=== PATIENT | male | born 1945 | race Caucasian/White ===

== ENCOUNTER 2018-10-07 20:33 | Inpatient (IN) | payer MEDICARE ==
[~2018-10-07] VITALS: Ht 175.3 cm; Wt 100.3 kg
--- NOTE | 2018-10-07 20:42 | NUR ---
PT TO ER VIA EMS STATES THAT THE PT HAS NOT BEEN ACTING NORMAL SINCE 1400. PT HAS SLURRED SPEECH- WHICH IS NEW STATED BY THE . PT IS AOX4 WHEN WOKEN, PT IS VERY DROWSY. PT DENIES ANY C/P, SOB N/V.
[2018-10-07 21:01] LABS: GFR 60 ML/MIN (>=60 (CALC)); GFR FOR AFR.AMER. > 60 ML/MIN (>=60 (CALC))
--- NOTE | 2018-10-07 21:12 | NUR ---
STROKE ALERT CANCELLED BY [facility] STROKE TEAM
[2018-10-07 21:17] LABS: HEMATOCRIT 37.9 % (39.0-50.0); HEMOGLOBIN 12.9 g/dl (14.0-18.0); IMMATURE GRANULOCYTES 0.3 % (0.0-5.0); MEAN CELL VOLUME 95.2 fL CALC (80.0-100.0); MEAN CORPUSCULAR HGB 32.4 pG CALC (26.0-32.0); NEUT# 5.43 thou/uL (1.82-7.42); RED BLOOD COUNT 3.98 mill/uL (4.70-6.10); RED CELL DISTRI WIDTH 13.2 % (11.5-15.5)
[2018-10-07 21:21] LABS: ALBUMIN 4.6 g/dL (3.2-5.0); ALKALINE PHOSPHATASE 63 u/l (38-126); ANION GAP 18 (6-22 (CALC)); BILIRUBIN, TOTAL 0.7 mg/dL (0.0-1.4); BUN 16 mg/dL (8-23); BUN/CREATININE RATIO 14 (12-20 (CALC)); CARBON DIOXIDE 21 mmol/l (22-30); CHLORIDE 101 mmol/l (95-108); CREATININE 1.1 mg/dL (0.7-1.3); GFR > 60 ML/MIN (>=60 (CALC)); GFR FOR AFR.AMER. > 60 ML/MIN (>=60 (CALC)); INTERNATIONAL NORMALIZED RATIO 1.1 RATIO (0.7-1.3); POTASSIUM 4.3 mmol/l (3.5-5.1); PROTHROMBIN TIME 11.6 SECONDS (9.0-12.5); SGOT/AST 40 u/l (19-48); SODIUM 135 mmol/l (137-146)
[2018-10-07 21:33] LABS: MYOGLOBIN 129 ng/mL (0 - 121)
--- NOTE | 2018-10-07 21:42 | NUR ---
PT RESTING ON STRETCHER, NO CHANGES IN MENTATION
--- NOTE | 2018-10-07 22:12 | NUR ---
REPORT GIVEN TO LYUBOV LORA
--- NOTE | 2018-10-07 22:24 | NUR ---
DR NOTIFIED OF ELEVATED LACTIC ACID.
--- NOTE | 2018-10-07 23:16 | NUR ---
REGISTRATION AT BEDSIDE
[2018-10-08] VITALS (34 sets, daily range): BP systolic 97–199; BP diastolic 52–82
[2018-10-08] LABS: URINE BILIRUBIN - DIPSTICK NEGATIVE (NEGATIVE); URINE BLOOD DIPSTICK TRACE-INTACT (NEGATIVE); URINE COLOR YELLOW; URINE GLUCOSE - DIPSTICK NEGATIVE (NEGATIVE); URINE KETONE NEGATIVE (NEGATIVE); URINE LEUK ESTERASE NEGATIVE (NEGATIVE); URINE NITRITE - DIPSTICK NEGATIVE (Negative); URINE PH 5.5 (4.5-8.0); URINE PROTEIN - DIPSTICK NEGATIVE (NEG-TRACE); URINE UROBILINOGEN - DIPSTICK 0.2 E.U./dL (0.2)
--- NOTE | 2018-10-08 01:12 | NUR ---
NOR EPI STARTED AT 0.5MCG/KG/MIN.
--- NOTE | 2018-10-08 01:15 | NUR ---
NOREPI INCREASED TO 0.6 MCG/[place]/MIN 74/44
--- NOTE | 2018-10-08 01:20 | NUR ---
80/47 77 17. NOR-EPI INCREASED TO 0.7 MCG/KG/MIN
--- NOTE | 2018-10-08 01:25 | NUR ---
GRANT-EPI INCREASED TO 1.0 MCG/KG/MIN.
--- NOTE | 2018-10-08 01:47 | NUR ---
95/52 74 16 95% ON NC @ 2 LPM.
--- NOTE | 2018-10-08 01:47 | NUR ---
REPORT TO GENO HARE./ICU
--- NOTE | 2018-10-08 02:01 | NUR ---
EKG COMPLETED AFTER REPEAT TROP DONE.
--- NOTE | 2018-10-08 02:10 | NUR ---
TO FLOOR WITH MONITOR/O2
[2018-10-08] MEDS ORDERED: LIPITOR10 M1 PO (02:40)
[2018-10-08] MEDS ORDERED: CO Q-10200 M1 PO (02:45)
[2018-10-08] MEDS ORDERED: METFORMIN HCL500 M2 PO (02:45)
--- NOTE | 2018-10-08 02:45 | NUR ---
[id number] PT. ARRIVED TO THE FLOOR VIA STRETCHER ACCOMPANIED BY ER NURSE, GENO MCARTHUR; PT. A/A/OX3 AND ABLE TO TRANSFER HIMSELF OVER TO STRETCHER WITH MINIMAL ASSISTANCE; PT. IS NOTED TO BE WITH SLIGHT GENERALIZED WEAKNESS; NEURO CHECK COMPLETED AND WNL;ADMISSION ASSESSMENT COMPLETED; PT. BROUGHT WITH PILAR-SYNEPHRINE GTT INFUSING; B/P 111/57 WITH HR 82 ; GTT SET 0.5MCG/KG/MIN (@74.2MLS/HR);RACHELE ROQUE RN, ALSO IN AT BEDSIDE AND VERIFYING GTT RATE; B/P MAINTAINING; SEE VS INTERVENTION; GOAL SBP IS 110; WILL CONTINUE TO MONITOR;NS INFUSING @125MLS/HR PER ORDER WELL; PT. DENIES PAIN; EDUCATED INTERNETWORKING TECHNICIAN LIGHT, ROOM, AND POC; VERBALIZES UNDERSTANDING; O2 INFUSING PER NC @2LITERS/MIN; INSTRUCTED TO CALL FOR ANY NEEDS; CALL LIGHT IS IN REACH; WILL CONTINUE TO MONITOR.
--- NOTE | 2018-10-08 04:59 | NUR ---
PT. RESTING IN BED WITH EYES CLOSED; SNORING; NO DISTRESS NOTED; PILAR-SYNEPHRINE GTT REMAINS INFUSING @74.2MLS/HR; LAST B/P 118/65 AND HR 76; WILL CONTINUE TO MONITOR; RESP EVEN AND UNLABORED.
--- NOTE | 2018-10-08 06:50 | NUR ---
REPORT RECVD FROM GENO HARE AT START OF SHIFT.
--- NOTE | 2018-10-08 07:14 | NUR ---
PTS CALLED FOR UPDATE. WILL ASK PT TO CALL HOME AFTER HE WAKES UP.
--- NOTE | 2018-10-08 08:00 | NUR ---
PT REQUEST WE HOLD HIS BREAKFAST. STATES HE DIDNT GET A LOT OF SLEEP LAST NIGHT. ASKED HOUSEKEEPING TO CLEAN HIS ROOM LAST TO REDUCE NOISE.
--- NOTE | 2018-10-08 09:30 | NUR ---
PT ASSISTED UP TO BSC FOR BM.
--- NOTE | 2018-10-08 10:25 | NUR ---
@BEDSIDE WITH PT.
--- NOTE | 2018-10-08 13:00 | NUR ---
PT REFUSED BATH, STATING "THEIR GETTING ME OUT OF HERE".
--- NOTE | 2018-10-08 13:05 | NUR ---
S: ADAMARIS GARCIA is a 73 M who presents with pneumonia and sepsis. He has a history of Diabetes, elevated cholesterol. All medications in patient's chart were reviewed. O: VS: BP 127/64 mm/Hg, P84 beats/min, RR16 beats/min,T97.4 F W 219 lbs, HT 69inches, Scr=1.2 mg/dL, CrCl= 65ml/min A: Blood culture collected 10/07/18 is pending. P: Patient is on Vancomycin 1gm IV q12H Start Vancomycin 1gm IV Q12H. Vancomycin trough is drawn before the 4th dose on 10/09/18 at 1630. Vancomycin goal trough is between 15-20 mcg/ml. Pharmacy will follow and or advise on antibiotics use as needed.
--- NOTE | 2018-10-08 13:35 | NUR ---
NOTIFIED RE: TROPONIN 0.[address] JOVEL CONTINUE TO OSBERVE AND MONITOR.
--- NOTE | 2018-10-08 13:39 | NUR ---
REPORT GIVEN TO GEOFF JONES.
--- NOTE | 2018-10-08 14:08 | NUR ---
PT IS RELAXING IN BED WITH NO DISTRESS NOTED. CONTINUE TO OSBERVE AND MONITOR.
--- NOTE | 2018-10-08 15:39 | NUR ---
PT IS RELAXING AND VISITING WITH FAMILY,NO DISTRESS NOTED. IV SITE IS FREE FROM REDNESS OR EDEMA
--- NOTE | 2018-10-08 16:00 | NUR ---
TRANSPORTED PT TO HAVE CT SCAN COMPLETED ON THE STRETCHER ACCOMAPNIED BY STAFF. IV SITE IS FREE FROM REDNESS OR EDEMA. PT IS SWEATING. CONTINUE TO OBSERVE AND MONITOR.
--- NOTE | 2018-10-08 16:45 | NUR ---
PT RETURNED FROM CT SCAN. ABLE TO TRANSFER TO BED WITH ASSISTANCE. PT STARTED TO VOMIT FROM THE MOVING AROUND ON THE STRETCHER . SMALL AMOUNT OF GREEN BILE. CONTINUE TO OSEBRVE AND MONITOR.
--- NOTE | 2018-10-08 18:00 | NUR ---
IN TO SEE PT. NEW ORDERS WRITTEN. MEDICATION GIVEN FOR FEVER OF 103.9 PER 'S ORDER
--- NOTE | 2018-10-08 18:37 | NUR ---
WRITTEN ORDERS FROM DR AVINA FAXED TO & ENTERED.
--- NOTE | 2018-10-08 19:02 | NUR ---
SPOKE WITH AND RE: TROPONIN OF 1.550. ORDERS IN PLACE FROM WILL RECHECK TOMORROW ALSO WITH ECHO AND THEN IF NOT ANY BETTER WILL TRANSFER PT. CONTINUE TO OSBERVE AND MONITOR. INFORMATION SHARED WITH ONCOMING SHIFT.
--- NOTE | 2018-10-08 19:23 | NUR ---
REPORT FROM ROBERT TELLEZ. PT RESTING IN BED ALERT AND ORIENTED. PT DENIES ANY PAIN OR DISCOMFORT. RESPIRATIONS LABORED. ASSISTED REPOSITIONING PT IN BED TO ASSIST WITH BREATHING. IV SITES APPEAR HEALTHY. VS STABLE. TEMP 102.6 TRENDING DOWN. DISCUSSED POC. PT VERBALIZED UNDERSTANDING. CALL LIGHT WITHIN REACH. WILL CONTINUE TO MONITOR.
--- NOTE | 2018-10-08 21:07 | NUR ---
PT RESTING IN BED WITH EYES CLOSED. RESPIRATIONS EVEN AND UNLABORED. O2 AT 2L/M VIA NC. IVF INFUSING WITHOUT DIFFICULTY. PT WAKES EASILY. DENIES ANY PAIN OR DISCOMFORT. CALL LIGHT WITHIN REACH. WILL CONTINUE TO MONITOR.
--- NOTE | 2018-10-08 22:17 | NUR ---
O2 SATS IN 80'S PT RESTING IN BED MOUTH BREATHING. RT IN ROOM TO PLACE VENTURI MASK. MASK SETTING AT 40% PT SAT 92% AT THIS TIME. WILL CONTINUE TO MONITOR.
--- NOTE | 2018-10-08 22:59 | NUR ---
PT INCONTINENT OF BLADDER WHILE TRYING TO REACH FOR URINAL. PARTIAL BED BATH AND LINEN CHANGE PROVIDED AT THIS TIME. PT REPOSITIONED IN BED. VS STABLE. PT DENIES ANY PAIN OR DISCOMFORT. CALL LIGHT WITHIN REACH.
[2018-10-09] VITALS (13 sets, daily range): BP systolic 83–126; BP diastolic 44–70
--- NOTE | 2018-10-09 00:29 | NUR ---
PT RESTING IN BED WITH EYES CLOSED. EASILY AROUSED. ALERT AND ORIENTED. IV SITE FLUSHED WELL. IV ABT INFUSING WITHOUT DIFFICULTY. APAP GIVEN FOR ELEVATED TEMP. O2 SAT REMAINS AT 92% WITH VENTURI MASK AT 40%. PT DENIES ANY PAIN OR DISCOMFORT. CALL LIGHT WITHIN REACH. WILL CONTINUE TO MONITOR.
--- NOTE | 2018-10-09 02:45 | NUR ---
PT RESTING WITH EYES CLOSED. NO S/S OF DISTRESS NOTED. CALL LIGHT WITHIN REACH. WILL CONTINUE TO MONITOR.
--- NOTE | 2018-10-09 04:29 | NUR ---
PT UP TO BSC. LINENS CHANGED PT SPILLED URINAL IN BED. PARTIAL BED BATH PROVIDED. PT HAD BROWN WATERY BM AT THIS TIME. ASSISTED BACK TO BED. PT DENIES ANY PAIN OR DISCOMFORT AT THIS TIME. CALL LIGHT WITHIN REACH. WILL CONTINUE TO MONITOR.
[2018-10-09 05:39] LABS: HEMATOCRIT 33.5 % (39.0-50.0); HEMOGLOBIN 11.2 g/dl (14.0-18.0); IMMATURE GRANULOCYTES 0.4 % (0.0-5.0); MEAN CELL VOLUME 97.1 fL CALC (80.0-100.0); MEAN CORPUSCULAR HGB 32.5 pG CALC (26.0-32.0); MEAN CORPUSCULAR HGB CONC 33.4 g/L CALC (32.0-36.0); NEUT# 4.64 thou/uL (1.82-7.42); RED BLOOD COUNT 3.45 mill/uL (4.70-6.10); RED CELL DISTRI WIDTH 13.3 % (11.5-15.5)
[2018-10-09 05:53] LABS: ALKALINE PHOSPHATASE 49 u/l (38-126); AMYLASE < 30 u/l (30-110); ANION GAP 13 (6-22 (CALC)); BILIRUBIN, TOTAL 0.6 mg/dL (0.0-1.4); BUN 15 mg/dL (8-23); BUN/CREATININE RATIO 13 (12-20 (CALC)); CARBON DIOXIDE 20 mmol/l (22-30); CHLORIDE 105 mmol/l (95-108); CREATININE 1.1 mg/dL (0.7-1.3); GFR > 60 ML/MIN (>=60 (CALC)); GFR FOR AFR.AMER. > 60 ML/MIN (>=60 (CALC)); LIPASE 178 u/l (23-300); MAGNESIUM 1.8 mg/dL (1.6-2.3); POTASSIUM 4.3 mmol/l (3.5-5.1); SGOT/AST 68 u/l (19-48); SODIUM 134 mmol/l (137-146)
[2018-10-09 05:57] LABS: ALBUMIN 3.1 g/dL (3.2-5.0); TOTAL PROTEIN 5.7 g/dL (6.3-8.2)
--- NOTE | 2018-10-09 07:10 | NUR ---
pt resting in bed with eyes closed; no apparent distress noted; easily arousable to verbal stimuli; assessment completed at this time; pt alert and oriented; denies pain; no n/v noted; resp even and unlabored; lungs coarse throughout with rhonchi noted to bases; skin color wnl; fnp cough noted; 40% ventimask intact with o2 sat 94%; pt denies sob; hr reg; strong pulses; no edema noted; bilat james hose intact; sr on monitor; abd soft/ distended with bs present; no bm noted per typewriter mechanic; no urine to inspect at this time; urinal at bedside; #20 ems site patent to lac with abt infusing without complication; no redness or edema noted at site; plan of care/ am meds explained; call light within reach; will contnue to monitor
--- NOTE | 2018-10-09 08:05 | NUR ---
resting with eyes closed; declined breakfast at this time; sr on monitor; iv intact and patent; fluids infusing without complication; urinal at bedsde; call light within reach; will continue to monitor
--- NOTE | 2018-10-09 08:50 | NUR ---
ASSISTED PT TO BSC; PT INCONTINENT OF URINE; CHI CARE PROVIDED; LG LOOSE BROWN BM; LINEN CHANGE DONE; REFUSED BATH AND ORAL CARE; REF BREAKFAST;
--- NOTE | 2018-10-09 09:40 | NUR ---
Dr Camara present at bedside to assess pt and discuss plan of care
--- NOTE | 2018-10-09 09:57 | NUR ---
radiology Prabhu called per curriculum writer; call passed to Dr Camara as per request
--- NOTE | 2018-10-09 10:15 | NUR ---
spouse present at bedside; policy writer sales explained plan of care and meds to pt and spouse; sbp 99; nitropaste removed from right chest wall; pt bladder scanned for 192cc; pt denies urge to urinate; iv patent; no redness or edema noted at site; sr on monitor; call light within reach; will continue to monitor
--- NOTE | 2018-10-09 10:40 | NUR ---
Dr Camara present at bedside to discuss diagnosis and plan of care in great detail with spouse and pt; policy writer sales at bedside to witness
--- NOTE | 2018-10-09 10:55 | NUR ---
awake in bed; spouse present at bedside; no apparent distress noted; iv intact and patent; no redness or edema noted at site; sr on monitor; call light within reach; will continue to monitor
--- NOTE | 2018-10-09 11:30 | NUR ---
awake in bed; lunch at bedside; pt strongly encouraged to attempt to eat; will continue to monitor
--- NOTE | 2018-10-09 13:10 | NUR ---
resting in bed with eyes closed/snoring; no apparent distress noted; resp unlabored; iv intact; 40% ventimask intact; urinal at bedside; sr on monitor; spouse present at bedside; call light within reach; will continue to monitor
--- NOTE | 2018-10-09 14:14 | NUR ---
awake in bed; o2 per nc; iv intact; sr on monitor; call light within reach; will continue to monitor
--- NOTE | 2018-10-09 15:56 | NUR ---
resting in bed with eyes closed; easily aroused; offers no complaints; iv intact; no redness or edema noted at site; sr on monitor; urinal at bedside; o2 per nc; call light within reach; will continue to monitor
--- NOTE | 2018-10-09 17:00 | NUR ---
PT SITTING UP IN BED AWAKE, WATCHING TV; MEDICATED PER EMAR; AT BEDSIDE; CALL ALMARAZ IN REACH.
--- NOTE | 2018-10-09 17:59 | NUR ---
awake in bed; offers no complaints; denies pain; resp even and unlabored; pt cont with drowsiness; spouse present at bedside; abt infusing without complication; sr on monitor; call light within reach
--- NOTE | 2018-10-09 18:50 | NUR ---
REPORT FROM Nasim BROWN RN. ASSUMED PT. CARE.
--- NOTE | 2018-10-09 19:25 | NUR ---
PT. FOUND RESTING WITH EYES CLOSED. AROUSABLE TO LIGHT VERBAL STIMULI. CALL LIGHT WITHIN REACH. BOWEL SOUNDS NOTED IN ALL QUADS. RESPS EVEN, SHALLOW, MILDLYLY LABORED WITH INTERMITTENT PERIODS OF APNEA AND SNORING. SPO2 IS IN THE 94-96 RANGE ON 3L NC AT THIS TIME. LUNG SOUNDS DIMINISHED TO BASES BILAT. COARSE THROUGHOUT WITH EXP WHEEZES THROUGHOUT. TRACE SWELLING NOTED TO UPPER EXTREMITIES. DISTIL PULSES INTACT. TRACE LOWER EXT EDEMA. SKIN WARM AND DRY. DEYANIRA. DROWSY. URINAL EMPTIED OF 100 CC CLEAR YELLOW URINE. PT. REPORTS LOOSE BM TODAY. DENIES COMPLAINTS OF PAIN OR NEED AT THIS TIME.
--- NOTE | 2018-10-09 20:32 | NUR ---
PT. BP SLIGHTLY LOW AT THIS TIME 90/56. WILL CONTINUE TO ASSESS.
--- NOTE | 2018-10-09 21:47 | NUR ---
LOOKED FOR NEW SITE TO PLACE NEW IV LINE. MINIMAL OPPORTUNITY FOR SITES NOTED. WILL CONTACT PHYSICIAN FOR POSSIBLE ORDER FOR PICC LINE.
--- NOTE | 2018-10-09 22:40 | NUR ---
RT AT BEDSIDE TO ADMINISTER NEB TREATMENT. BP NOW 122 SYSTOLIC. WILL CONTINUE TO MONITOR. CALL LIGHT REMAINS WITHIN REACH. WILL CONTINUE TO MONITOR.
[2018-10-10] VITALS (12 sets, daily range): BP systolic 94–116; BP diastolic 51–61
--- NOTE | 2018-10-10 01:04 | NUR ---
ZOSYN INFUSED. NO REACTIONS NOTED. REMAINS MILDLY HYPOTENSIVE. SPO2 IS STABLE AT 96% ON 3L NC. INTERMITTENT SNORING RESPIRATIONS NOTED.
--- NOTE | 2018-10-10 02:09 | NUR ---
PT. RESTING IN BED WITH SNORING RESPIRATIONS. BP/HR STABLE. CALL LIGHT REMAINS WITHIN REACH. WILL CONTINUE TO ASSESS.
--- NOTE | 2018-10-10 03:45 | NUR ---
PT. CONTINUES TO REST WITH EYES CLOSED IN NO DISTRESS. REMAINS ON NASAL CANNULA AT 3L WITH SPO2 IN THE 96-98% RANGE.
--- NOTE | 2018-10-10 04:40 | NUR ---
LABS DRAWN BY THIS RN AT THIS TIME. PROVIDED TO [facility].
--- NOTE | 2018-10-10 04:50 | NUR ---
PT. TAKEN OVER TO MED/SURG AT THIS TIME FOR SHOWER. PT. AWAKE, ALERT, ORIENTED X 3. SKIN WARM AND DRY. STABLE AT THIS TIME.
[2018-10-10 05:17] LABS: HEMATOCRIT 31.5 % (39.0-50.0); HEMOGLOBIN 10.7 g/dl (14.0-18.0); IMMATURE GRANULOCYTES 0.6 % (0.0-5.0); MEAN CELL VOLUME 94.3 fL CALC (80.0-100.0); PLATELET COUNT 162 thou/uL (130-400); RED BLOOD COUNT 3.34 mill/uL (4.70-6.10); RED CELL DISTRI WIDTH 13.2 % (11.5-15.5)
--- NOTE | 2018-10-10 05:35 | NUR ---
PT. RETURNED FROM MED/SURG AFTER SHOWER IN STABLE CONDITION. PER MARKETING MGR, PATIENT DID WELL AND HAD NO SOB WHILE GETTING CLEANED UP. RESPS STABLE, EVEN ON ARRIVAL BACK TO UNIT. PLACED BACK ON MONITOR AND REMAINS SINUS IN THE 70'S.
[2018-10-10 05:43] LABS: ALBUMIN 2.8 g/dL (3.2-5.0); ALKALINE PHOSPHATASE 48 u/l (38-126); ANION GAP 11 (6-22 (CALC)); BILIRUBIN, TOTAL 0.4 mg/dL (0.0-1.4); BUN 13 mg/dL (8-23); BUN/CREATININE RATIO 14 (12-20 (CALC)); CARBON DIOXIDE 23 mmol/l (22-30); CHLORIDE 102 mmol/l (95-108); CREATININE 0.9 mg/dL (0.7-1.3); GFR > 60 ML/MIN (>=60 (CALC)); GFR FOR AFR.AMER. > 60 ML/MIN (>=60 (CALC)); MAGNESIUM 1.9 mg/dL (1.6-2.3); POTASSIUM 3.8 mmol/l (3.5-5.1); SGOT/AST 75 u/l (19-48); SODIUM 133 mmol/l (137-146); TOTAL PROTEIN 5.3 g/dL (6.3-8.2)
[2018-10-10 05:49] LABS: BAND 5 % (0-8); MANUAL DIFFERENTIAL YES
[2018-10-10 05:50] LABS: HYPOCHROMIA FEW; MICROCYTOSIS FEW; PLATELET ESTIMATE NORMAL
--- NOTE | 2018-10-10 06:06 | NUR ---
ZOSYN INFUSING AT THIS TIME. MEDICATED WITH TYLENOL FOR TEMP OF 101.0. WILL CONTINUE TO MONITOR.
--- NOTE | 2018-10-10 06:50 | NUR ---
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
--- NOTE | 2018-10-10 08:02 | NUR ---
resting in bed with eyes closed; no apparent distress noted; resp even and unlabored; iv intact; sr on monitor; call light within reach; will continue to monitor
--- NOTE | 2018-10-10 10:14 | NUR ---
awake in bed; spouse present at bedside; no apparent distress noted; sr on monitor; iv intact; no redness or edema noted at site; plan of care explained; call light within reach; will continue to monitor
--- NOTE | 2018-10-10 10:50 | NUR ---
Dr Camara present at bedside to assess pt and discuss plan of care
--- NOTE | 2018-10-10 12:15 | NUR ---
awake in chair; no apparent distress noted; pt offers no complaints; iv flushed and patent; abt infusing without complication; no redness or edema noted at site; sr on monitor; call light within reach; will continue to monitor
--- NOTE | 2018-10-10 13:06 | NUR ---
assisted back to bed as per pt request; bladder scanned for 383cc; pt encouraged to urinate; will continue to monitor
--- NOTE | 2018-10-10 13:08 | NUR ---
pt voided 125cc urine
--- NOTE | 2018-10-10 14:01 | NUR ---
awake in bed; offers no complaints; no apparent distress noted; resp even and unlabored; o2 per nc; iv intact; sr on monitor; call light within reach; will continue to monitor
--- NOTE | 2018-10-10 15:05 | NUR ---
#20 started to lac (not fully advanced) per Ramon Paiz RN; site flushed and patent; no redness or edema noted; #20 ems site removed with catheter tip intact; will continue to monitor
--- NOTE | 2018-10-10 16:14 | NUR ---
awake in bed; no apparent distress noted; pt offers no complaints; o2 per nc; iv intact; spouse present at bedside; sr on monitor; call light within reach; will continue to monitor
--- NOTE | 2018-10-10 18:00 | NUR ---
awake in bed; declined dinner; no apparent distress noted; pt offers no complaints; o2 per nc; iv intact with abt infusing without complication; sr on monitor; call light within reach
--- NOTE | 2018-10-10 19:03 | NUR ---
PT. SITTING UP IN BED WITH NO DISTRESS NOTED; DENIES NEEDS/PAIN; ASSESSMENT COMPLETED; IV SITE PATENT AND SL TO LAC; VSS AT THIS TIME; PT. IS SR ON MANAGER DIGITAL;UPDATED ON POC; ENCOURAGED TO CALL FOR ANY NEEDS; CALL LIGHT IS IN REACH; WILL CONTINUE TO MONITOR.
--- NOTE | 2018-10-10 20:15 | NUR ---
LORI HELD D/T LOW B/P OF 94/58; WILL CONTINUE TO MONIOR B/P. PT. CONTINUES ON PRINTING ENGINEER READING SR 1ST DEGREE AV BLK. CALL LIGHT IS IN REACH; WILL CONTINUE TO MONITOR.
--- NOTE | 2018-10-10 22:15 | NUR ---
PT. ASSISTED TO USE THE URINAL IN BATHROOM PT. IS WITH SLIGHTLY UNSTEADY GAIT AND ASSISTED TO GET COMFORTABLE IN BED; PT. VOIDED 100MLS OF DARK YELLOW URINE; PO FLUIDS OFFERED; ENCOURAGED TO CALL FOR ANY NEEDS; CALL LIGHT IS IN REACH; WILL CONTINUE TO MONITOR.
--- NOTE | 2018-10-10 23:47 | NUR ---
PT. RESTING IN BED WITH NO DISTRESS NOTED; DENIES NEEDS; RESP EVEN AND UNLABORED; CALL LIGHT IS IN REACH; WILL CONTINUE TO MONITOR.
[2018-10-11] VITALS (12 sets, daily range): BP systolic 102–149; BP diastolic 56–79
--- NOTE | 2018-10-11 02:16 | NUR ---
PT. RESTING IN BED WITH EYES CLOSED; O2 INFUSING PER NC @2LITERS/MIN; SPO2 WNL; LAST B/P 123; WILL CONTINUE TO MONITOR; URINAL EMPTIED OF 225MLS OF DARK YELLOW URINE; CALL LIGHT IS IN REACH; WILL CONTINUE TO MONITOR.
--- NOTE | 2018-10-11 03:40 | NUR ---
PT. RESTING IN BED WITH EYES CLOSED; NO DISTRESS NOTED; CALL LIGHT IS IN REACH; WILL CONTINUE TO MONITOR.
--- NOTE | 2018-10-11 04:59 | NUR ---
PT. VOIDED 150MLS OF DARK YELLOW URINE; BLADDER SCANNED AT THIS TIME AND KXC=[id number]; TEMP ASSESSED AND IS 99.8; WILL CONTINUE TO MONITOR. PT. INQUIRING WHEN HE IS GOING TO BE ABLE TO GO HOME AND REPORTS HE IS WANTING TO GO HOME; REFUSED AM LAB WORK THIS AM; PT. UPDATED ON POC AND VOICED TO PT. TO SPEAK WITH MD THIS AM UPON ROUNDS IN REGARDS TO A DISCHARGE DATE; PO FLUIDS OFFERED AND OFFERED MOUTHSWABS; CALL LIGHT IS IN REACH; WILL CONTINUE TO MONITOR.
--- NOTE | 2018-10-11 05:25 | NUR ---
PT. GIVEN AN INCENTIVE SPIROMETER AND EDUCATED ON THIS DEVICE; PT. PULLING 500 AND DID 10 REPS AT THIS TIME; GOAL SET TO 1000; ENCOURAGED TO USE 10X'S AN HOUR WHILE AWAKE; CALL LIGHT IS IN REACH; WILL CONTINUE TO MONITOR.
--- NOTE | 2018-10-11 06:11 | NUR ---
PT. UP FOR DAILY WT ON STANDING SCALE; GOWN, PAD,AND TOP SHEET CHANGED AT THIS TIME D/T IT BEING WET FROM URINE; EMPTIED 100MLS OF YELLOW URINE FROM URINAL WELL; REASSESSED TEMP AND DOWN TO 99.6; WILL CONTINUE TO MONITOR.
--- NOTE | 2018-10-11 07:04 | NUR ---
REPORT RECVD FROM GENO HARE @ START OF SHIFT. PT OVERHEARD SNORING FROM NURSING STATION
--- NOTE | 2018-10-11 07:32 | NUR ---
CALLED INTO ROOM. PT LISTED A NUMBER OF THINGS HE WANTED DONE; INCLUDING OPENING HIS BLINDS, GETTING HIM UP TO CHAIR, WANTS TO BRUSH HIS TEETH. PT ASSISTED UP TO CHAIR. BREAKFAST SET UP FOR HIM. PT REEDUCATED ON INCENTIVE SPIROMETER. PT REFUSED HIS MORNING LAB DRAW, STATING "THEY NEVER WOULD'VE FOUND ANYTHING ANYWAY". EXPLAINED DIFFERENCE BETWEEN IV PLACEMENT AND LAB DRAW. PT APPEARS GROUCHY AND UNFRIENDLY WITH STAFF. MINIMAL ASSISTANCE FROM STAFF TO TRANSFER TO CHAIR. PT REMAINS ON 2L HUMIDIFIED O2 NC. CALLBELL W/IN REACH.
--- NOTE | 2018-10-11 08:02 | NUR ---
PT SITTING UP IN CHAIR. ATE 50% OF BREAKFAST. LINENS/GOWN CHANGED. PT BRUSHING OWN TEETH. DIETARY @BEDSIDE FOR MEAL PREFERENCES. HOUSEKEEPING IN ROOM FOR CLEANING. CALLBELL W/IN REACH. NO OTHER NEEDS/CONCERNS AT THIS TIME. PT BREATHING EVEN/UNLABORED. CLEAR UPPER LOBES, CRACKLES TO MID/LOWER LOBES. ABD SOFT/NONTENDER, ACTIVE BS. NO BM SINCE 10/09/18. NO EDEMA. CORTES. STRONG PULSES x4. PT MORE AWAKE TO THAN IN THE PAST. SPEECH GROGGY/HOARSE. PT STATES HIS THROAT FEELS DRY. FRESH WATER IN PITCHER. EYES PERRLA @4. 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 WILL CONTINUE TO MONITOR.
--- NOTE | 2018-10-11 09:25 | NUR ---
@BEDSIDE. "IMPRESSED WITH PTS PROGRESS"
--- NOTE | 2018-10-11 10:15 | NUR ---
DR JOVEL @BEDSIDE WITH PT/.
--- NOTE | 2018-10-11 10:58 | NUR ---
TYLENOL PENDING MD ORDER FOR FEVER. PT/ AWARE OF TRANSFER TO [facility].
--- NOTE | 2018-10-11 11:22 | NUR ---
PT SITTING UP ON SIDE OF BED, EATING LUNCH. PT REPOSITIONED SELF TO SIDE OF BED, SOB WITH EXERTION.
--- NOTE | 2018-10-11 11:23 | NUR ---
MEDICATED FOR FEVER.
--- NOTE | 2018-10-11 14:03 | NUR ---
PT SLEEPING IN BED. NO S/S OF DISTRESS AT THIS TIME. WILL CONTINUE TO MONITOR.
--- NOTE | 2018-10-11 15:30 | NUR ---
RAEANN CHAIREZ RN. SHE WCB.
--- NOTE | 2018-10-11 15:57 | NUR ---
@BEDSIDE, PT SLEEPING IN BED. NO NEEDS/CONCERNS AT THIS TIEM. WILL CONTINUE TO MONITOR.
--- NOTE | 2018-10-11 17:05 | NUR ---
RT @BEDSIDE FOR BREATHING TREATMENT.
--- NOTE | 2018-10-11 17:41 | NUR ---
BLADDER SCANNER SHOWED 604ML.
--- NOTE | 2018-10-11 17:48 | NUR ---
REPORT GIVEN TO JUDY ON [facility]. WILL TRANSPORT PT AFTER DINNER.
--- NOTE | 2018-10-11 18:09 | NUR ---
PT CAME FROM ICU VIA WHEELCHAIR WITH O2 AT 2L VIA NC. REPORT RECEIVED FROM GENO MONSON. BED SETTER IN ROOM TO OBTAIN VS. PT DENIES ANY PAIN AT THIS TIME. CALL LIGHT IN REACH.
--- NOTE | 2018-10-11 18:22 | NUR ---
PT TRANSFERED TO [facility] 283 BY WITH 02, TELE, AND ALL BELONGINGS. @BEDSIDE.
--- NOTE | 2018-10-11 18:41 | NUR ---
TELE IN [place] .PER ED PT IS READING SR 77 1 AVB. PT IS SLEEPING AND CALL LIGHT IN REACH.
--- NOTE | 2018-10-11 21:05 | NUR ---
V/S ASSESSED AT THIS TIME. PT LOCX4, MEDICATIONS REVIEWED, WILL CALL PHARMACY AND PHYSICIAN REGARDING MEDICATIONS ORDERED. ACCU-CHECK BLOOD SUGARS REPORTED TO BE 91/AIDE PROVIDED SNACK, PT HAS NOT EATEN IT AT THIS TIME, I DISCUSSED NEED TO EAT SOMETHING OVERNIGHT TO PREVENT BLOOD SUGARS FROM DROPPING TOO LOW/HE VERBALIZED UNDERSTADING AND AGREED TO EAT SOMETHING. POC DISCUSSED W/PT. CALL LIGHT AT BEDSIDE.
--- NOTE | 2018-10-11 23:07 | NUR ---
PT MEDICATED ORDERS PROVIDE. PT WAS SLEEPING SOUNDLY I ENTERED THE ROOM, AWOKE TO MY VOICE/LOUDLY SOUNDING. PT C/O BEING WOKEN UP AND STATED THAT HE WAS TOLD HE "WOULD BE ABLE TO SLEEP TONIGHT." POC DISCUSSED W/PT. I ASKED IF LAB COULD COME DRAW BLOOD FOR LAB TESTS/REFUSED, STATING THAT THEY CAN COME IN THE MORNING AROUND 9 OR 10AM. WILL NOTIFY LAB. PT ASSESSED AT THIS TIME, LUNG SOUNDS ARE CLEAR, 1+ EDEMA TO BLE, SKIN INTACT, ABD DIST SOFT NON-TENDER W/ACTIVE BOWEL SOUNDS, PEDAL PULSES ARE WEAK, NEURO'S INTACT. PT DENIES ANY PAIN/N/V. CALL LIGHT IN PLACE AND PT ENCOURAGED TO CALL.
[2018-10-12 00:10] VITALS: BP 116/87
--- NOTE | 2018-10-12 03:18 | NUR ---
PT IS SLEEPING SOUNDLY AT THIS TIME. NO S/O DISTRESS NOTED. IV FLUIDS RUNNING ORDERED/SITE APPEARS HEALTHY. WILL CONTINUE TO MONITOR.
[2018-10-12 04:24] VITALS: BP 131/75
[2018-10-12 05:35] LABS: HEMATOCRIT 32.1 % (39.0-50.0); HEMOGLOBIN 10.6 g/dl (14.0-18.0); IMMATURE GRANULOCYTES 0.3 % (0.0-5.0); MEAN CORPUSCULAR HGB 31.4 pG CALC (26.0-32.0); PLATELET COUNT 152 thou/uL (130-400); RED BLOOD COUNT 3.38 mill/uL (4.70-6.10); RED CELL DISTRI WIDTH 13.6 % (11.5-15.5)
[2018-10-12 06:12] LABS: ALKALINE PHOSPHATASE 66 u/l (38-126); ANION GAP 11 (6-22 (CALC)); BILIRUBIN, TOTAL 0.5 mg/dL (0.0-1.4); BUN 7 mg/dL (8-23); BUN/CREATININE RATIO 9 (12-20 (CALC)); CARBON DIOXIDE 25 mmol/l (22-30); CHLORIDE 102 mmol/l (95-108); CREATININE 0.7 mg/dL (0.7-1.3); GFR > 60 ML/MIN (>=60 (CALC)); GFR FOR AFR.AMER. > 60 ML/MIN (>=60 (CALC)); MAGNESIUM 1.9 mg/dL (1.6-2.3); POTASSIUM 3.5 mmol/l (3.5-5.1); SGOT/AST 95 u/l (19-48); SODIUM 135 mmol/l (137-146); TOTAL PROTEIN 5.5 g/dL (6.3-8.2)
[2018-10-12 06:13] LABS: MANUAL DIFFERENTIAL YES
[2018-10-12 06:14] LABS: BAND 16 % (0-8); HYPOCHROMIA FEW; MICROCYTOSIS FEW; PLATELET ESTIMATE NORMAL
--- NOTE | 2018-10-12 07:55 | NUR ---
PT SITTING IN SIDE OF BED, EATING BREAKFAST, PT REQUESTS TO RETURN FOR VITALS AND MEDS ONCE HE IS DONE EATING. CALL LIGHT IN REACH,CONTINUE TO MONITOR.
[2018-10-12 08:54] VITALS: BP 135/70
--- NOTE | 2018-10-12 09:06 | NUR ---
PT RESTING IN BED, NO SIGNS OF DISTRESS NOTED, RESP EVEN AND UNLABORED, PT 88% ON RA, REPLACED NC 02 3L NC, PT EDUCATED ON DEEP BREATHING, DEMONSTRATED WELL, INCREASED SP02 94%. ASSISTED PT UP TO RECLINER AT BEDSIDE. ASSESSMENT COMPLETED, CALL LIGHT IN REACH,CONTINUE TO MONITOR.
[2018-10-12 11:10] VITALS: BP 93/60
--- NOTE | 2018-10-12 11:57 | NUR ---
PT BP 93/60, PT MEDICATED WITH MIDODRINE. ZOSYN INFUSING AT THIS TIME, WILL ATTEMPT TO AMBULATE PT IN HALLWAY ONCE COMPLETED.
--- NOTE | 2018-10-12 13:41 | NUR ---
AND HARI TO SEE PT AND DISCUSS POC.
--- NOTE | 2018-10-12 13:49 | NUR ---
ASSISTED PT TO RECLINER AT BEDSIDE, PT AMBULATED WELL TO CHAIR, NO SIGNS OF DISTRESS NOTED, RESP EVEN AND UNLABORED. CALL LIGHT IN REACH, AT BEDSIDE, CONTINUE TO MONITOR.
--- NOTE | 2018-10-12 14:24 | NUR ---
S: ADAMARIS GARCIA is a 73 M who presents with Bilateral pneumonia. He has a history of Diabetes, ELEVATED CHOLESTEROL. All medications in patient's chart were reviewed. O: VS: BP 93/60, P 73, RR 20,T 99.4 W 99kg, HT 69IN , Scr= 1,CrCl= 77 ml/min A: Blood culture <is pending/show> which is sensitive to <>. Urine culture <is pending/show> which is sensitive to <>. P: Patient is on ZOSYN AND AZITHROMYCIN. Vancomycin ordered for pharmacy to dose. Start Vancomycin 1000MG IV Q8H. Vancomycin trough is drawn before the 4th dose on 10/13/18 @ 1230. Vancomycin goal trough is between <15-20 mcg/ml>. Pharmacy will follow and or advise on antibiotics use as needed. RODNEY PENA PHARMD
[2018-10-12 15:55] VITALS: BP 117/66
--- NOTE | 2018-10-12 18:45 | NUR ---
PHYSICAL THERAPIST MATEO AMBULATING WITH PT FOR EVALUATION.
[2018-10-12 19:37] VITALS: BP 117/72
--- NOTE | 2018-10-12 20:24 | NUR ---
ASSESSMENT COMPLETED; NO DISTRESS NOTED;DENIES NEEDS/PAIN; PHLEBOTOMY GABRIELA BLOOD CULTURES X2 PRIOR TO HANGING VANCO; SCHED MEDS GIVEN; UPDATED ON POC; ENCOURAGED TO CALL FOR ANY NEEDS; CALL LIGHT IS IN REACH; WILL CONTINUE TO MONITOR;
[2018-10-12 21:36] LABS: URINE BILIRUBIN - DIPSTICK NEGATIVE (NEGATIVE); URINE BLOOD DIPSTICK SMALL (NEGATIVE); URINE CLARITY CLEAR; URINE COLOR YELLOW; URINE GLUCOSE - DIPSTICK NEGATIVE (NEGATIVE); URINE KETONE 40 mg/dL (NEGATIVE); URINE LEUK ESTERASE NEGATIVE (Negative); URINE NITRITE - DIPSTICK NEGATIVE (Negative); URINE PH 5.5 (4.5-8.0); URINE PROTEIN - DIPSTICK TRACE mg/dL (NEG-TRACE); URINE UROBILINOGEN - DIPSTICK 0.2 E.U./dL (0.2)
[2018-10-12 21:48] LABS: URINE SQUAMOUS EPITHELIAL CELL FEW EPI/hpf (0-FEW)
--- NOTE | 2018-10-12 23:29 | NUR ---
PT. SLEEPING; AWAKENED FOR ANTIBIOTIC; DENIES NEEDS; NO DISTRESS NOTED; CALL LIGHT IS IN REACH.
[2018-10-13] VITALS (7 sets, daily range): BP systolic 95–147; BP diastolic 57–81
--- NOTE | 2018-10-13 04:49 | NUR ---
PT. SITTING UP IN BED SLEEPING; AROUSES EASILY; DENIES NEEDS; SCHED ABT HUNG; URINAL EMPTIED; CALL LIGHT IS IN REACH; WILL CONTINUE TO MONITOR.
[2018-10-13 05:59] LABS: ALKALINE PHOSPHATASE 74 u/l (38-126); ANION GAP 13 (6-22 (CALC)); BILIRUBIN, TOTAL 0.6 mg/dL (0.0-1.4); BUN 7 mg/dL (8-23); BUN/CREATININE RATIO 9 (12-20 (CALC)); CARBON DIOXIDE 24 mmol/l (22-30); CHLORIDE 101 mmol/l (95-108); CREATININE 0.7 mg/dL (0.7-1.3); GFR > 60 ML/MIN (>=60 (CALC)); GFR FOR AFR.AMER. > 60 ML/MIN (>=60 (CALC)); MAGNESIUM 1.9 mg/dL (1.6-2.3); POTASSIUM 3.5 mmol/l (3.5-5.1); SGOT/AST 126 u/l (19-48); SODIUM 134 mmol/l (137-146); TOTAL PROTEIN 5.6 g/dL (6.3-8.2)
[2018-10-13 06:02] LABS: HEMATOCRIT 31.1 % (39.0-50.0); HEMOGLOBIN 10.5 g/dl (14.0-18.0); IMMATURE GRANULOCYTES 0.9 % (0.0-5.0); MEAN CELL VOLUME 94.2 fL CALC (80.0-100.0); MEAN CORPUSCULAR HGB 31.8 pG CALC (26.0-32.0); MEAN CORPUSCULAR HGB CONC 33.8 g/L CALC (32.0-36.0); PLATELET COUNT 150 thou/uL (130-400); RED CELL DISTRI WIDTH 13.4 % (11.5-15.5)
[2018-10-13 06:39] LABS: MANUAL DIFFERENTIAL YES
[2018-10-13 06:41] LABS: BAND 2 % (0-8)
--- NOTE | 2018-10-13 08:40 | NUR ---
PT UP TO BATHROOM HAD A BM, ASSISTED TO CHAIR AT BEDSIDE, EDUCATED ON IS, PT TOTAL VOLUME 1500 ML, LUNGS SOUNDS RALES/COARSE. INFORMED FNPS, CALL LIGHT IN REACH,CONTINUE TO MONITOR.
--- NOTE | 2018-10-13 08:50 | NUR ---
MONOMER RECOVERY OPERATOR TO ASSESS PT
--- NOTE | 2018-10-13 11:40 | NUR ---
PHYSICAL THERAPY AT BEDSIDE TO AMBULATE PT
--- NOTE | 2018-10-13 12:40 | NUR ---
AM: PATIENT SEEN FOR GAIT TRAINING. HIS STATES HE IS VERY SLEEPY TODAY. PATIENT HAD A DIFFICULT TIME STAYING AWAKE BUT FOLLOWED INSTRUCTIONS WELL. GAIT DONE WITH PORTABLE O2 TANK AND NO DEVICES. HE AMBULATED 75 FEET. GAIT IS MILDLY UNSTABLE REQUIRING SBA FOR SAFETY AND VERBAL INSTRUCTIONS FOR SAFETY DURING TRANFERS. HE APPEARED TO TOLERATE TREATMENT WELL AND WAS LEFT COMFORTABLE IN THE CHAIR WITH THE O2 ON AND HIS ASSISTING HIM WITH HIS LUNCH.
--- NOTE | 2018-10-13 14:01 | NUR ---
S: ADAMARIS GARCIA is a 73 M who presents with PNEUMONIA. He has a history of Diabetes, ELEVATED CHOLESTEROL. All medications in patient's chart were reviewed. O: VS: BP 108/69, P 78, RR 18,T 98.3 W 100 kg, HT 69 IN, Scr= 0.7,CrCl= 77 ml/min A: Blood culture is pending which is sensitive to <>. Urine culture is pending which is sensitive to <>. P: Patient is on AZITHROMYCIN, ZOSYN . Vancomycin ordered for pharmacy to dose. TROUGH ON 10/13/18 IS 12 CHANGE Vancomycin TO 1250MG IV Q8H. Vancomycin trough is drawn before the 4th dose on 10/14/18 @2030 Vancomycin goal trough is between 15-20 mcg/ml. Pharmacy will follow and or advise on antibiotics use as needed. RODNEY PENA PHARMD
--- NOTE | 2018-10-13 14:10 | NUR ---
PT TAKEN DOWN TO RADIOLOGY FOR CXR. CONTINUE TO MONITOR.
--- NOTE | 2018-10-13 14:20 | NUR ---
PT RETURNED FROM RADIOLOGY, VANCO INFUSION RESTARTED.
--- NOTE | 2018-10-13 19:30 | NUR ---
REPORT FROM KARTHIK TELLEZ. PT RESTING IN BED WITH EYES CLOSED. 02 VIA NC AT 3L/M. NO DISTRESS NOTED. CALL LIGHT WITHIN REACH. WILL CONTINUE TO MONITOR.
--- NOTE | 2018-10-13 23:45 | NUR ---
PT RESTING IN BED WITH EYES CLOSED. NO S/S OF RESPIRATORY DISTRESS NOTED REMAINS ON 02 VIA NC. PT WAKE EASILY. IV FLUSHED AND IV ABT INFUSING WITHOUT DIFFICULTY. NO ADVERSE REACTION NOTED. CALL LIGHT WITHIN REACH. WILL CONTINUE TO MONITOR.
[2018-10-14 04:43] VITALS: BP 139/72
--- NOTE | 2018-10-14 04:44 | NUR ---
PT RESTING IN BED WITH EYES CLOSED. RESPIRATIONS EVEN AND UNLABORED. 02 VIA NC REMAINS IN PLACE. NO S/S OF PAIN OR DISCOMFORT NOTED. PT EASILY AROUSED. IV SITE FLUSHED EASILY. IV ABT INFUSING AT THIS TIME. CALL LIGHT WITHIN REACH. WILL CONTINUE TO MONITOR.
[2018-10-14 05:21] LABS: HEMATOCRIT 30.2 % (39.0-50.0); IMMATURE GRANULOCYTES 0.7 % (0.0-5.0); MEAN CELL VOLUME 94.7 fL CALC (80.0-100.0); MEAN CORPUSCULAR HGB 31.3 pG CALC (26.0-32.0); MEAN CORPUSCULAR HGB CONC 33.1 g/L CALC (32.0-36.0); PLATELET COUNT 189 thou/uL (130-400); RED BLOOD COUNT 3.19 mill/uL (4.70-6.10); RED CELL DISTRI WIDTH 13.6 % (11.5-15.5)
[2018-10-14 05:34] LABS: ALBUMIN 2.9 g/dL (3.2-5.0); ALKALINE PHOSPHATASE 79 u/l (38-126); ANION GAP 12 (6-22 (CALC)); BILIRUBIN, TOTAL 0.7 mg/dL (0.0-1.4); BUN 7 mg/dL (8-23); BUN/CREATININE RATIO 8 (12-20 (CALC)); CARBON DIOXIDE 26 mmol/l (22-30); CHLORIDE 101 mmol/l (95-108); CREATININE 0.8 mg/dL (0.7-1.3); GFR > 60 ML/MIN (>=60 (CALC)); GFR FOR AFR.AMER. > 60 ML/MIN (>=60 (CALC)); MAGNESIUM 1.9 mg/dL (1.6-2.3); POTASSIUM 3.6 mmol/l (3.5-5.1); SGOT/AST 89 u/l (19-48); SODIUM 135 mmol/l (137-146); TOTAL PROTEIN 5.5 g/dL (6.3-8.2)
[2018-10-14 06:00] LABS: BAND 2 % (0-8); MANUAL DIFFERENTIAL YES
[2018-10-14 06:01] LABS: HYPOCHROMIA FEW; MICROCYTOSIS FEW; PLATELET ESTIMATE NORMAL
--- NOTE | 2018-10-14 07:05 | NUR ---
REPORT RECEIVED FROM GEOFF PATRICK;PT OOB RESTING IN RECLINER WITH LETY WAYNE AT BEDSIDE OBTAINING ACCUCHECK;INTRODUCED SELF TO PT AND POC DISCUSSED;RESPIRATIONS EVEN AND UNLABORED ON O2 @ 3L VIA NC;PT DENIES ANY CURRENT PAIN OR NEEDS;TELE MONITORING IN PLACE;PT ENCOURAGED TO CALL FOR ASSISTANCE IF NEEDED;FALL PRECAUTIONS IN PLACE WITH CALL LIGHT IN REACH;WILL CONTINUE TO MONITOR
--- NOTE | 2018-10-14 08:35 | NUR ---
PT OOB RESTING IN RECLINER,ALERT AND ORIENTED X3;VS OBTAINED AND ASSESSMENT COMPLETED;PT DENIES ANY CURRENT PAIN OR DISCOMFORTS, PAIN SCALE AND REPORTING EDUCATED;RESPIRATIONS SHALLOW ON O2 @ 3L VIA NC;I.S. AT BEDSIDE AND PT EDUCATED IN USE 10X PER HOUR WHILE AWAKE;ABDOMEN DISTENDED/SOFT ON PALPATION AND ACTIVE IN ALL 4 QUADRANTS;WEAK PEDAL PULSES;SKIN INTACT;TELE MONITORING IN PLACE;#20G TO LAC FLUSHED AND PATENT,SITE APPEARS HEALTHY;RIGHT HAND SLIGHTLY EDEMATOUS, PT REPORTS THAT THIS IS NOT NEW. ENOCURAGED ELEVATION;ACCUCHECK 71, NO COVERAGE NEEDED THIS MORNING;PT DENIES ANY ADDITIONAL NEEDS AND IS ECOURAGED TO CALL FOR ASSISTANCE IF NEEDED;FALL PRECAUTIONS IN PLACE WITH CALL LIGHT IN REACH;WILL CONTINUE TO MONITOR
[2018-10-14 08:37] VITALS: BP 124/59
[2018-10-14 11:15] VITALS: BP 93/60
--- NOTE | 2018-10-14 11:40 | NUR ---
PT OOB RESTING IN RECLINER WITH SPOUSE AT BEDSIDE;RESPIRATIONS REMAIN SHALLOW ON O2 @ 3L VIA NC;PT DENIES ANY CURRENT PAIN,PAIN SCALE AND REPORTING EDUCATED;IV SITE TO LAC PATENT;TELE MONITORING IN PLACE;FRESH LINENS PROVIDED BY LETY WAYNE;ACCUCHECK 84, NO COVERAGE NEEDED AT THIS TIME;PT ENCOURAGED TO CALL FOR ASSISTANCE IF NEEDED;FALL PRECAUTIONS IN PLACE WITH CALL LIGHT IN REACH;WILL CONTINUE TO MONITOR
--- NOTE | 2018-10-14 13:09 | NUR ---
AT BEDSIDE DISCUSSING POC WITH PT AND SPOUSE.
[2018-10-14 15:09] VITALS: BP 117/71
--- NOTE | 2018-10-14 16:12 | NUR ---
PHYSICAL THERAPY AT BEDSIDE WORKING WITH PATIENT.
--- NOTE | 2018-10-14 16:29 | NUR ---
Pt seen this pm for treatment. He was in bed with present. Pt moved supine to sit with supervision and use of bed rail. Sitting balance on edge of bed was good. Pt stood and ambulated x 75' x 2 with 4WW and O2. CGA/Supervision given but no LOB noted. PPt did have poor safety skills, stood reaching for walker vs pushing from bed, left 4WW before reaching chair and to walk into BR. Pt instructed in proper safety skills. Pt resting in chair with call harris in reach and present. treatment time 20 min.
--- NOTE | 2018-10-14 16:45 | NUR ---
PT OOB RESTING IN RECLINER;RESPIRATIONS SHALLOW ON O2 @ 3L VIA NC;PT DENIES ANY CURRENT PAIN OR NEEDS;IV SITE TO LAC REMAINS PATENT;TELE MONITORING IN PLACE;ACCUCHECK 113, NO COVERAGE NEEDED AT THIS TIME;ENCOURAGED PT TO CALL FOR ASSISTANCE IF NEEDED;CALL LIGHT IN REACH;WILL CONTINUE TO MONITOR
[2018-10-14 18:09] VITALS: BP 128/53
[2018-10-14 19:38] VITALS: BP 132/71
--- NOTE | 2018-10-14 19:45 | NUR ---
PT IN BED SLEEPING I ENTERED THE ROOM, NO S/O DISTRESS, DENIES ANY PAIN,SOB. CALL LIGHT IN PLACE W/IN REACH. PT PROVIDED ADDITIONAL PO FLUIDS AND URINAL EMPTIED.
--- NOTE | 2018-10-14 23:11 | NUR ---
PT MEDICATED ORDERS PROVIOE. PT WAS SLEEPING SOUNDLY ENTERED ROOM, AWOKE TO MY VOICE ONLY. NO S/O DISTRESS NOTED AT THIS TIME. CALL LIGHT AT SIDE, PT DENIES ANY OTHER NEEDS.
[2018-10-15 01:02] VITALS: BP 129/72
--- NOTE | 2018-10-15 04:15 | NUR ---
PT SLEEPING AT THIS TIME. V/S OBTAINED, NO S/O DISTRESS NOTED. CALL LIGHT AT BEDSIDE.
[2018-10-15 05:19] VITALS: BP 133/71
--- NOTE | 2018-10-15 07:10 | NUR ---
REPORT RECEIVED FROM GENO LOOMIS;PT APPEARS TO BE SLEEPING IN SEMI FOWLERS POSITION;RESPIRATIONS EVEN AND UNLABORED,SHALLOW ON O2 @ 2L VIA NC;NO S/S OF DISTRESS NOTED;TELE MONITORING IN PLACE;BED IN THE LOWEST POSITION WITH CALL LIGHT IN REACH;WILL CONTINUE TO MONITOR
--- NOTE | 2018-10-15 08:43 | NUR ---
SILVIA WARD AT BEDSIDE WORKING WITH PTHa
--- NOTE | 2018-10-15 08:52 | NUR ---
Pt OOB in chair without [address] He was cooperative with treatment. Pt stood and ambulated 2x 75 with 4WW and supervision. Pt noted to have improved safety skills today. He denied SOB. Pt left resting in chair with call harris and bedside tray in reach.
[2018-10-15 09:08] VITALS: BP 116/63
--- NOTE | 2018-10-15 09:10 | NUR ---
PT OOB RESTING IN RECLINER, EAGER TO GO HOME;VS OBTAINED AND ASSESSMENT COMPLETED;PT DENIES ANY CURRENT PAIN OR DISCOMFORTS,PAIN SCALE AND REPORTING EDUCATED;RESPIRATIONS EVEN AND UNLABORED,SHALLOW ON RA;ABDOMEN DISTENDED/SOFT ON PALPATION AND ACTIVE IN ALL 4 QUADRANTS;WEAK PEDAL PULSES WITH GENERALIZED EDEMA NOTED THROUGHOUT LEGS AND BODY,ENCOURAGED ELEVATION;#20G TO LAC FLUSHED AND PATENT,PT EDUCATED ON IV SITE EXPIRATION DATE AND REFUSES SITE CHANGE AT THIS TIME;TELE MONITORING IN PLACE;PT DENIES ANY ADDITIONAL NEEDS AT THIS TIME AND IS ENCOURAGED TO CALL FOR ASSISTANCE IF NEEDED;FALL PRECAUTIONS IN PLACE WITH CALL LIGHT IN REACH;WILL CONTINUE TO MONITOR
[2018-10-15 11:05] VITALS: BP 121/56
--- NOTE | 2018-10-15 12:04 | NUR ---
S: ADAMARIS GARCIA is a 73 M who presents with Pneumonia. He has a history of Diabetes, Elevated Cholesterol. All medications in patient's chart were reviewed. O: VS: BP 121/56 mmHg, P 74 bpm, RR 16 bpm, T 98.4 F W 100.272 kg, HT 5'9", Scr= 0.8, CrCl= 77.95 ml/min A: Blood culture shows no growth after 48 hours Urine culture shows no growth after 48 hours P: Patient is on Azithromycin 500mg IV Q24H, Zosyn 3.375gm IV Q6H, and Vancomycin 1250mg IV Q8H. Vancomycin ordered for pharmacy to dose. Start Vancomycin 1750mg IV Q12H. Vancomycin trough is drawn before the 4th dose on 10/16/18 @2330. Vancomycin goal trough is between <15-20 mcg/ml>. Pharmacy will follow and or advise on antibiotics use as needed.
--- NOTE | 2018-10-15 12:20 | NUR ---
PT RESTING IN RECLINER EATING LUNCH;RESPIRATIONS EVEN AND UNLABORED ON RA;PT DENIES ANY CURRENT PAIN OR NEEDS;IV SITE TO LAC REMAINS PATENT;TELE MONITORING IN PLACE;ASSESSMENT UNCHANGED AT THIS TIME;SAFETY PRECAUTIONS REINFORCED;ENCOURAGED TO CALL FOR ASSISTANCE IF NEEDED;CALL LIGHT IN REACH;WILL CONTINUE TO MONITOR
--- NOTE | 2018-10-15 12:36 | NUR ---
AT BEDSIDE DISCUSSING POC INCLUDING DISCHARGE WITH PT AND SPOUSE. PT TO BE DISCHARGED HOME WITH HOME HEALTH AND PT. PATIENT AND SPOUSE VERBALIZE UNDERSTANDING.AWAITING DISCHARGE ORDERS.
[2018-10-15] MEDS ORDERED: MIDODRINE HCL5 MG PO (15:51)
[2018-10-15] MEDS ORDERED: ASPIRIN CHEWABL81 MG PO (15:53)
[2018-10-15] MEDS ORDERED: Levaquin PO (16:07)
--- NOTE | 2018-10-15 16:15 | NUR ---
PT RESTING IN RECLINER WITH SPOUSE AT BEDSIDE DISCUSSING HOME HEALTH OPTIONS;RESPIRATIONS EVEN AND UNLABORED ON RA;PT DENIES ANY CURRENT PAIN OR NEEDS;TELE MONITORING IN PLACE;AWAITING HOME HEALTH DECISION TO BE MADE FOR DISCHARGE;WILL CONTINUE TO MONITOR
--- NOTE | 2018-10-15 17:17 | NUR ---
ALL DISCHARGE INSTRUCTIONS PROVIDED AT THIS TIME,QUESTIONS ANSWERED;PT ENCOURAGED TO PROCESSING INSPECTOR RX FROM PHARMACY AND TAKE PRESCRIBED;IV SITE REMOVED WITH CATHETER OMTACT;PT DENIES ANY ADDITIONAL NEEDS;WHEELCHAIR TO BE PROVIDED FOR DISCHARGE HOME.
--- NOTE | 2018-10-15 17:31 | NUR ---
Discharge instructions given. Patient verbalizes understanding of same. Discharged in stable condition via Wheelchair to Home with spouse. All belongings sent with pt. Pt transported to er lobby via wheelchair in stable condition accompanied by patricia broderick and spouse.
== END 2018-10-15 17:31 | disposition home health service (06) | DRG 194 ==
LOC: ED 20:33 → ED-I 20:49 → ED 10-08 00:14 → ICU 10-08 00:15 → MS2 10-11 18:28
PROVIDERS: Emergency Medicine; Internal Medicine Nephrology; ADMIT Internal Medicine; ATTEND Internal Medicine
DX: J18.9 Pneumonia, unspecified organism (principal); E27.40 Unspecified adrenocortical insufficiency; I95.89 Other hypotension; E11.9 Type 2 diabetes mellitus without complications; E78.5 Hyperlipidemia, unspecified; D35.2 Benign neoplasm of pituitary gland; K59.00 Constipation, unspecified; N40.0 Benign prostatic hyperplasia without lower urinary tract symptoms; E03.9 Hypothyroidism, unspecified; R74.8 Abnormal levels of other serum enzymes; E66.9 Obesity, unspecified; Z68.32 Body mass index [BMI] 32.0-32.9, adult; Z79.84 Long term (current) use of oral hypoglycemic drugs
CPT/HCPCS: J0692; J1650; J3370; Q9967

== ENCOUNTER 2019-09-14 | Emergency (ER) | payer MEDICARE ==
[~2019-09-14] MED LIST: ASPIRIN CHEWABL81 MG PO; CO Q-10200 M1 PO; LIPITOR10 M1 PO; Levaquin PO; METFORMIN HCL500 M2 PO; MIDODRINE HCL5 MG PO
[2019-09-14 21:15] LABS: IMMATURE GRANULOCYTES 0.3 % (0.0-5.0); MEAN CELL VOLUME 91.4 fL CALC (80.0-100.0); MEAN CORPUSCULAR HGB CONC 33.9 g/L CALC (32.0-36.0); NEUT# 3.33 thou/uL (1.82-7.42); RED BLOOD COUNT 3.94 mill/uL (4.70-6.10)
[2019-09-14 21:16] LABS: HEMOGLOBIN 12.2 g/dl (14.0-18.0)
[2019-09-14 21:27] LABS: ALKALINE PHOSPHATASE 64 u/l (38-126); BILIRUBIN, TOTAL 0.7 mg/dL (0.0-1.4); BUN 13 mg/dL (8-23); BUN/CREATININE RATIO 16 (12-20 (CALC)); CARBON DIOXIDE 22 mmol/l (22-30); CHLORIDE 102 mmol/l (95-108); CREATININE 0.8 mg/dL (0.7-1.3); GFR > 60 ML/MIN (>=60 (CALC)); GFR FOR AFR.AMER. > 60 ML/MIN (>=60 (CALC)); SGOT/AST 31 u/l (19-48); SODIUM 134 mmol/l (137-146)
[2019-09-14 21:28] LABS: ALBUMIN 4.2 g/dL (3.2-5.0); ANION GAP 15 (6-22 (CALC)); POTASSIUM 4.8 mmol/l (3.5-5.1); TOTAL PROTEIN 7.8 g/dL (6.3-8.2)
[2019-09-14] MEDS ORDERED: [UNRECOGNIZED DRUG - OTHER] PO (21:59)
[2019-09-14] MEDS ORDERED: PRILOSEC20 MG/CAP PO (23:00)
== END 2019-09-14 23:37 | disposition home or self-care (01) ==
PROVIDERS: Emergency Medicine
DX: R13.10 Dysphagia, unspecified (principal); E11.9 Type 2 diabetes mellitus without complications
CPT/HCPCS: J1610

== ENCOUNTER 2019-11-02 11:35 | Inpatient (IN) | payer MEDICARE ==
[~2019-11-02] VITALS: Ht 175.3 cm; Wt 92.8 kg
[~2019-11-02 11:35] MED LIST changes: +PRILOSEC20 MG/CAP PO; +[UNRECOGNIZED DRUG - OTHER] PO
--- NOTE | 2019-11-02 11:45 | NUR ---
PT TO ROOM VIA WHEELCHIAR FOR BEDSIDE TRIAGE. PT TO STRETCHER WITH 2 ASSIST. PT APPEARS WEAK.
--- NOTE | 2019-11-02 12:00 | NUR ---
PT HOLDS SELF UPRIGHT WITH EYES CLOSED AND MOUTH OPEN MAKING SNORING SOUNDS. ROUSES TO STIMULI. STATES HE HAS "BEEN LIKE THIS FOR FOUR DAYS:.
[2019-11-02 12:30] LABS: HEMATOCRIT 34.2 % (39.0-50.0); HEMOGLOBIN 11.8 g/dl (14.0-18.0); IMMATURE GRANULOCYTES 0.5 % (0.0-5.0); MEAN CELL VOLUME 87.5 fL CALC (80.0-100.0); MEAN CORPUSCULAR HGB 30.2 pG CALC (26.0-32.0); MEAN CORPUSCULAR HGB CONC 34.5 g/dL CAL (32.0-36.0); NEUT# 9.97 thou/uL (1.82-7.42); RED BLOOD COUNT 3.91 mill/uL (4.70-6.10); RED CELL DISTRI WIDTH 13.6 % (11.5-15.5)
[2019-11-02 12:49] LABS: ALBUMIN 3.4 g/dL (3.2-5.0); ALKALINE PHOSPHATASE 74 u/l (38-126); BILIRUBIN, TOTAL 0.8 mg/dL (0.0-1.4); BUN 25 mg/dL (8-23); BUN/CREATININE RATIO 29 (12-20 (CALC)); CARBON DIOXIDE 22 mmol/l (22-30); CHLORIDE 90 mmol/l (95-108); CREATININE 0.9 mg/dL (0.7-1.3); GFR > 60 ML/MIN (>=60 (CALC)); GFR FOR AFR.AMER. > 60 ML/MIN (>=60 (CALC)); LIPASE 48 u/l (23-300); MAGNESIUM 1.9 mg/dL (1.6-2.3); POTASSIUM 4.3 mmol/l (3.5-5.1); SGOT/AST 44 u/l (19-48); TOTAL PROTEIN 6.6 g/dL (6.3-8.2)
[2019-11-02 12:50] LABS: ANION GAP 17 (6-22 (CALC)); PROTHROMBIN TIME 10.4 SECONDS (9.0-12.5); SODIUM 125 mmol/l (137-146)
--- NOTE | 2019-11-02 13:12 | NUR ---
COMPLETED 1L IVF BOLUS. PT MORE ALERT AND CONVERSIVE WHEN STIMULATED. VSS. UPDATED ON WAIT TIME FOR RESULTS. AT BEDSIDE.
--- NOTE | 2019-11-02 14:15 | NUR ---
ASSISTED PT TO REPOSITION IN BED. PT ASSISTED BY "WIGGLING" UP IN BED. PT ABLE TO ASSIST BUT BECOMES TIRES EASILY.
--- NOTE | 2019-11-02 15:40 | NUR ---
PT TRANSPORTED TO ROOM VIA STRETCHER IN NO DISTRESS. TRANSFERED SELF TO BED SLOWLY WITH SBA. PT ALERT AND ORIENTED.
--- NOTE | 2019-11-02 15:55 | NUR ---
PT ARRIVES VIA STRETCHER. IV FLUIDS INFUSING TO LEFT A/C IV. SITE CLEAN DRY AND INTACT. BREATHING EVEN AND UNLABORED ON ROOM AIR. SPEECH CLEAR. PT APPEARS SLEEPY. ASSISTANCE PROVIDED, PT AMBULATED FROM STRETCHER TO BED. BS+. NO EDEMA. PT ORIENED TO ROOM. CALL LIGHT IN REACH.
[2019-11-02 16:21] LABS: URINE BILIRUBIN - DIPSTICK NEGATIVE (NEGATIVE); URINE BLOOD DIPSTICK NEGATIVE (NEGATIVE); URINE COLOR YELLOW; URINE GLUCOSE - DIPSTICK NEGATIVE (NEGATIVE); URINE KETONE NEGATIVE (NEGATIVE); URINE LEUK ESTERASE NEGATIVE (NEGATIVE); URINE NITRITE - DIPSTICK NEGATIVE (Negative); URINE PROTEIN - DIPSTICK TRACE mg/dL (NEG-TRACE); URINE SPECIFIC GRAVITY 1.025; URINE UROBILINOGEN - DIPSTICK 0.2 E.U./dL (0.2)
[2019-11-02 17:00] VITALS: BP 122/64
--- NOTE | 2019-11-02 19:00 | NUR ---
RECEIVED REPORT FROM DAY NURSE PATIENT RESTING IN BED EYES CLOSED, CALL LIGHT AT REACH.
[2019-11-02 20:06] VITALS: BP 123/75
--- NOTE | 2019-11-02 21:00 | NUR ---
PATIENT ALERT ORINETED ABLE TO MAKE NEEDS KNOWN, WITH AN ONGOING IV OF NS @ 50CC/HR INFUISNH WELL ON LAC, DENIES PAIN OR DISCOMFORTS REMAINS ON TELE SR 83 WITH IVCD, REINFORCED ON 800 CC FLUID RESTRICTION, CALL LIGHT AT REACH
[2019-11-02 22:47] VITALS: BP 146/69
--- NOTE | 2019-11-03 00:13 | NUR ---
PATIENT APPEARS TO BE SLEEPING WITH EYES CLOSED WITH EVEN UNLABORED BREATHING CALL LIGHT AT REACH.
[2019-11-03 04:00] VITALS: BP 142/67
[2019-11-03 04:50] LABS: HEMATOCRIT 31.7 % (39.0-50.0); HEMOGLOBIN 10.8 g/dl (14.0-18.0); IMMATURE GRANULOCYTES 0.4 % (0.0-5.0); MEAN CORPUSCULAR HGB 30.3 pG CALC (26.0-32.0); MEAN CORPUSCULAR HGB CONC 34.1 g/dL CAL (32.0-36.0); NEUT# 7.06 thou/uL (1.82-7.42); RED BLOOD COUNT 3.56 mill/uL (4.70-6.10); RED CELL DISTRI WIDTH 13.4 % (11.5-15.5)
[2019-11-03 05:05] LABS: ANION GAP 10 (6-22 (CALC)); BUN 17 mg/dL (8-23); BUN/CREATININE RATIO 24 (12-20 (CALC)); CARBON DIOXIDE 24 mmol/l (22-30); CHLORIDE 95 mmol/l (95-108); CREATININE 0.7 mg/dL (0.7-1.3); GFR > 60 ML/MIN (>=60 (CALC)); GFR FOR AFR.AMER. > 60 ML/MIN (>=60 (CALC)); POTASSIUM 3.8 mmol/l (3.5-5.1); SODIUM 126 mmol/l (137-146)
--- NOTE | 2019-11-03 06:05 | NUR ---
PATIENT APPEARS TO BE SLEEPING WITH EYES CLOSED, EVEN UNLABORED NREATHING CALL LIGHT AT REACH.
[2019-11-03 10:50] VITALS: BP 135/73
--- NOTE | 2019-11-03 12:08 | NUR ---
PT RESTING QUIETLY IN BED, DENIES PAIN OR ANY NEEDS AT THIS TIME. WILL CONTINUE TO MONITOR. DEYSI
[2019-11-03 15:23] VITALS: BP 130/68
[2019-11-03 19:00] VITALS: BP 138/75
--- NOTE | 2019-11-03 19:33 | NUR ---
RECEIVED REPORT FROM DAY NURSE PATIENT RESTING IN BED EYS CLOSED, CALL LIGHT AT REACH.
--- NOTE | 2019-11-03 19:48 | NUR ---
PATIENT CALLED, SPOKE TO , PATIENT WAS UPDATED WITH THE CURRENT ORDERS AT THIS TIME.
[2019-11-03 23:51] VITALS: BP 123/73
--- NOTE | 2019-11-04 00:11 | NUR ---
Patient resting in bed, eyes closed, incontinent care provided, call light at reach.
--- NOTE | 2019-11-04 00:33 | NUR ---
PATIENT STATED HE WILL USE URINAL AT BEDSIDE, PATIENT HAS A NEW ORDER FOR URINE SODIUM AND POTASSIUM.
[2019-11-04 04:32] VITALS: BP 109/65
--- NOTE | 2019-11-04 04:38 | NUR ---
PATIENT ALERT AT THIS TIME, DENIES PAIN, REINFORCED ON FLUID RESTRICTION AND COLLECTED URINE SPECIMEN, DENIES DISCOMFORTS AT THIS TIME.
[2019-11-04 05:19] LABS: HEMATOCRIT 31.8 % (39.0-50.0); HEMOGLOBIN 10.8 g/dl (14.0-18.0); MEAN CELL VOLUME 89.1 fL CALC (80.0-100.0); MEAN CORPUSCULAR HGB 30.3 pG CALC (26.0-32.0); RED BLOOD COUNT 3.57 mill/uL (4.70-6.10); RED CELL DISTRI WIDTH 13.5 % (11.5-15.5)
[2019-11-04 05:42] LABS: ALBUMIN 2.9 g/dL (3.2-5.0); BUN 15 mg/dL (8-23); CARBON DIOXIDE 21 mmol/l (22-30); CHLORIDE 96 mmol/l (95-108); CREATININE 0.7 mg/dL (0.7-1.3); GFR > 60 ML/MIN (>=60 (CALC)); GFR FOR AFR.AMER. > 60 ML/MIN (>=60 (CALC)); MAGNESIUM 1.8 mg/dL (1.6-2.3); POTASSIUM 3.9 mmol/l (3.5-5.1); SODIUM 126 mmol/l (137-146)
[2019-11-04 07:52] VITALS: BP 125/62
--- NOTE | 2019-11-04 09:00 | NUR ---
PT SEEN RESTING IN THE BED, LETHARGIC BUT ROUSABLE. INITIAL TEMP WAS 101.6, CHECK OUT CLERK AWARE, BCs DONE, TYLENOL GIVEN. CT ORDERED.
[2019-11-04 10:55] VITALS: BP 123/72
[2019-11-04 15:00] VITALS: BP 130/70
--- NOTE | 2019-11-04 16:09 | NUR ---
PT RESTS IN THE BED, NO FURTHER FEVER NOTED. [place] UPDATED ON PT STATUS. CT RESULTS NOT KNOWN YET. PT HAS BEEN AWAKE AND INTERACTIVE WHEN QUESTIONS ASKED.
--- NOTE | 2019-11-04 18:37 | NUR ---
PT AT REST IN THE BED WITH EYES CLOSED, ENCOURAGED TO EAT HIS MEAL. PT REMAINS BEFORE, NO DISTRESS, APPEARS WEAK.
[2019-11-04 19:16] VITALS: BP 134/69
--- NOTE | 2019-11-04 19:53 | NUR ---
PATIENT RESTING IN BED AT THIS TIME. LETHARGIC BUT AROUSABLE. FLAT AFFECT. ORIENTEDX3. SLOW SPEECH. PATIENT VOIDED 50CC OF KEVIN URINE IN URIAL. DENIES PAIN. STATES HAVING DIFFICULTY WITH HIS "FEEDING TUBE"-REFERRING TO ESOPHAGUS. ALTHOUGH PATIENT WAS ABRIL TO TAKE PO MEDS WITHOUT ANY PROBLEM-NO COGHING OR CHOKING. TELE MONITOR IN PLACE. IV SITE TO LAC INTAT WITH IVF NS INFUSING ORDERED. SAFETY PRECAUTIONS REINFORCED. CALL LIGHT IN REACH. WILL CONT TO MONITOR.
--- NOTE | 2019-11-05 00:02 | NUR ---
PATIENT RESTING IN BED WITH EYES CLOSED-APPEARS SLEEPING. RESPS ARE EVEN AND UNLABORED. TELE MONITOR IN PLACE. IVF NS PATENT AND INFUSING ORDER VIA LAC SITE. CALL LIGHT IN REACH. WILL CONT TO MONITOR.
--- NOTE | 2019-11-05 02:59 | NUR ---
PATIENT RESTING IN BED-NEW BAG OF IVF HUNG AND INFUSING VIA LAC SITE AT 100CC/HR. SITE REMAINS HEALTHY AT THIS TIME. PATIENT IS WET-EITHER INCONT OR SPILLED URINAL IN BED. PATIENT WAS CLEANED UP AND PADS WERE CHANGED OUT. TELE MONITOR IN PLACE. SAFETY PRECAUTIONS REINFORCED. CALL LIGHT IN REACH. WILL CONT TO MONITOR.
--- NOTE | 2019-11-05 04:33 | NUR ---
PATIENT RESTING IN BED AT THIS TIME WITH EYES CLOSED. RESPS ARE EVEN AND UNLABORED. APPEARS SLEEPING. TELE MONITOR IN PLACE. IF NS PAENT AND INFUSING VIA LAC SITE. CALL LIGHT IN REACH. WILL COT TO MONITOR.
[2019-11-05 05:14] LABS: HEMATOCRIT 28.9 % (39.0-50.0); HEMOGLOBIN 9.9 g/dl (14.0-18.0); IMMATURE GRANULOCYTES 1.4 % (0.0-5.0); MEAN CELL VOLUME 88.9 fL CALC (80.0-100.0); MEAN CORPUSCULAR HGB 30.5 pG CALC (26.0-32.0); MEAN CORPUSCULAR HGB CONC 34.3 g/dL CAL (32.0-36.0); NEUT# 4.85 thou/uL (1.82-7.42); RED BLOOD COUNT 3.25 mill/uL (4.70-6.10); RED CELL DISTRI WIDTH 13.7 % (11.5-15.5)
[2019-11-05 05:16] VITALS: BP 133/55
[2019-11-05 05:30] LABS: ANION GAP 12 (6-22 (CALC)); BUN 15 mg/dL (8-23); BUN/CREATININE RATIO 18 (12-20 (CALC)); CARBON DIOXIDE 22 mmol/l (22-30); CHLORIDE 97 mmol/l (95-108); CREATININE 0.8 mg/dL (0.7-1.3); GFR > 60 ML/MIN (>=60 (CALC)); GFR FOR AFR.AMER. > 60 ML/MIN (>=60 (CALC)); MAGNESIUM 1.8 mg/dL (1.6-2.3); POTASSIUM 3.4 mmol/l (3.5-5.1); SODIUM 127 mmol/l (137-146)
--- NOTE | 2019-11-05 07:00 | NUR ---
SHIFT CHANGE REPORT, PT AWAKE AND ALERT, IVF INFUSING, TELE MONITOR IN PLACE, NO C/O DISCOMFORT AT THIS TIME, REQUESTING WATER, NEEDS ADDRESSED, CALL ALMARAZ IN REACH.
[2019-11-05 09:34] VITALS: BP 177/104
[2019-11-05 11:06] VITALS: BP 98/56
--- NOTE | 2019-11-05 12:00 | NUR ---
ASSISTED OOB TO CHAIR AND SET UP FOR MEAL, MAX ASSIST TO TRANSFER, CALL ALMARAZ PLACED WITHIN REACH.
[2019-11-05 15:25] VITALS: BP 135/64
--- NOTE | 2019-11-05 17:09 | NUR ---
IN BED SLEEPING AT THIS TIME, SNORING BUT APPEARS COMFORTABLE.
[2019-11-05 18:52] VITALS: BP 105/51
[2019-11-05 23:56] VITALS: BP 100/48
--- NOTE | 2019-11-06 00:05 | NUR ---
PT MEDICATED W/IV ANTIBIOTIC THERAPY ORDERS PROVIDE. PT WAS SLEEPING I ENTERED THE ROOM. NO S/O DISTRESS NOTED.
[2019-11-06 03:48] VITALS: BP 117/40
[2019-11-06 04:56] LABS: HEMATOCRIT 23.2 % (39.0-50.0); MEAN CELL VOLUME 88.5 fL CALC (80.0-100.0); MEAN CORPUSCULAR HGB 30.2 pG CALC (26.0-32.0); MEAN CORPUSCULAR HGB CONC 34.1 g/dL CAL (32.0-36.0); RED BLOOD COUNT 2.62 mill/uL (4.70-6.10)
[2019-11-06 05:10] LABS: ANION GAP 8 (6-22 (CALC)); BUN 31 mg/dL (8-23); BUN/CREATININE RATIO 34 (12-20 (CALC)); CARBON DIOXIDE 23 mmol/l (22-30); CHLORIDE 102 mmol/l (95-108); CREATININE 0.9 mg/dL (0.7-1.3); GFR > 60 ML/MIN (>=60 (CALC)); GFR FOR AFR.AMER. > 60 ML/MIN (>=60 (CALC)); HEMOGLOBIN 7.9 g/dl (14.0-18.0); MAGNESIUM 1.9 mg/dL (1.6-2.3); POTASSIUM 3.3 mmol/l (3.5-5.1); SODIUM 129 mmol/l (137-146)
--- NOTE | 2019-11-06 05:45 | NUR ---
PT MEDICATED W/IV ANTIBIOTIC THERAPY, PT ASKING FOR WATER, PROVIDED 120MLS.
--- NOTE | 2019-11-06 07:15 | NUR ---
CHANGE OF SHIFT REPORT RECEIVED FROM GENO LOOMIS. PT IN ROOM, LYOING ON LEFT SIDE; EYES CLOSED, RESPIRATION EVEN AND UNLABORED. PT SLEEPING. PT HAS LAB FOR STOOL PENDING TO RULE OUT OCCULT BLOOD. HAT PUT IN PATIENTS ROOM. SLEEP TECHNOLOGIST WILL CONTINUE TO MONITOR
[2019-11-06 08:02] VITALS: BP 104/44
--- NOTE | 2019-11-06 09:14 | NUR ---
9AMLASIX HELD PER HARI CLARKE.
[2019-11-06 11:18] VITALS: BP 104/61
--- NOTE | 2019-11-06 11:30 | NUR ---
PATIENT HAD LARGE LOOSE BOWEL MOVEMENT. TARRY IN COLOR. SPECIMEN COLLECTED AND SENT TO LAB. BED BATH GIVEN; SHEETS CHANGED. PT IS ABLE TO MAKE SOME NEEDS KNOWN. PT DENIES PAIN. ADMITTING OFFICER WILL CONTINUE TO MONITOR. CALL LIGHT WITHIN EASY REACH, BED IN LOWEST POSITION
--- NOTE | 2019-11-06 15:14 | NUR ---
PT note: Patient was incontinent of stool in AM. He was able to converse with me and tells me his history fairly well although there are plenty of gaps. In the PM he was able to assist with transfers and required only mod assist for bed mobility and transfers. He was losing his balance backwards yesterday but today is more steady with a beeter motor plan for when he does lose his balance. He still requires a FWW which he tells me he has at home. He is able to ambulate x 2 for 50 and 75 feet. His Am pac has imporvedto 15 and he would do well with ECF due to his incontinence and fall risk. If he insists on going home with home health, I would recommend PT for balance and fall prevention and OT for bowel and bladder program.
[2019-11-06 15:28] VITALS: BP 112/59
--- NOTE | 2019-11-06 16:04 | NUR ---
PATIENT ASSISTED BACK TO BED. CALL LIGHT, PHONE AND BED CONTROL PUT WITHIN EASY REACH. PATIENT NOW ON PHONE WITH HIS . PT DENIES ANY NEW CONCERNS. DOLPHIN RESEARCHER WILL CONTINUE TO MONITOR
[2019-11-06 18:26] VITALS: BP 109/64
--- NOTE | 2019-11-06 20:42 | NUR ---
AIDE IS IN W/PT CLEANING OF INCONTINENT STOOL. BLACK TARRY STOOL OBSERVED. SPECIMEN SENT TO LAB AT THIS TIME. PT TURNS WELL, BUT SEEMS A LITTLE CONFUSED AND DELAYED IN FOLLOWING DIRECTIONS. NEURO'S APPEAR INTACT OTHERWISE. PT LOCX3 AT THIS TIME. MEDICATED AND ASSESSMENT COMPLETED AT THIS TIME. CALL LIGHT AT SIDE AND PT ENCOURAGED TO CALL.
--- NOTE | 2019-11-06 22:36 | NUR ---
PT CALLING ASKING FOR PO FLUIDS.
[2019-11-06 23:43] VITALS: BP 101/59
--- NOTE | 2019-11-06 23:48 | NUR ---
PT MEDICATED W/IV ANTIBIOTIC THERAPY AT THIS TIME. STRETCHER LEVELER OPERATOR HELPER IN TO OBTAIN V/S. NO S/O DISTRESS NOTED. PT WAS SLEEPING, BUT AWOKE TO OUR VOICES. DENIES ANY NEEDS AT THIS ITME.
[2019-11-07] VITALS (12 sets, daily range): BP systolic 87–118; BP diastolic 56–69
[2019-11-07 04:42] LABS: HEMATOCRIT 20.5 % (39.0-50.0); IMMATURE GRANULOCYTES 4.1 % (0.0-5.0); MEAN CELL VOLUME 89.1 fL CALC (80.0-100.0); MEAN CORPUSCULAR HGB 30.4 pG CALC (26.0-32.0); MEAN CORPUSCULAR HGB CONC 34.1 g/dL CAL (32.0-36.0); NEUT# 6.48 thou/uL (1.82-7.42); RED BLOOD COUNT 2.3 mill/uL (4.70-6.10); RED CELL DISTRI WIDTH 14.5 % (11.5-15.5)
[2019-11-07 04:54] LABS: ANION GAP 8 (6-22 (CALC)); BUN 21 mg/dL (8-23); BUN/CREATININE RATIO 24 (12-20 (CALC)); CARBON DIOXIDE 25 mmol/l (22-30); CHLORIDE 102 mmol/l (95-108); CREATININE 0.9 mg/dL (0.7-1.3); GFR > 60 ML/MIN (>=60 (CALC)); GFR FOR AFR.AMER. > 60 ML/MIN (>=60 (CALC)); MAGNESIUM 1.8 mg/dL (1.6-2.3); POTASSIUM 3.5 mmol/l (3.5-5.1); SODIUM 132 mmol/l (137-146)
--- NOTE | 2019-11-07 05:54 | NUR ---
PT MEDICATED W/IV ANTIBIOTIC THERAPY. PT ASKING WHEN THE DOCTOR WILL BE HERE STATING, "I WANT TO GO HOME TODAY." PT WAS SLEEPING WHEN I ENTERED THE ROOM. PT C/O FEELING "DRY." 100CC OF PO FLUID PROVIDED.
--- NOTE | 2019-11-07 07:00 | NUR ---
SHIFT CHANGE REPORT, PT AWAKE ALERT AND ORIENTED RESTING IN BED, NO C/O DISCOMFORT, O2 @ 2L IN PLACE VIA NC, TELE MONITOR IN PLACE, BEING ASSISTED OOB TO CHAIR AND SET UP FOR MEAL AT THIS TIME, CALL ALMARAZ IN REACH.
--- NOTE | 2019-11-07 12:45 | NUR ---
SITTING UP IN CHAIR, FIRST UNIT PRBC COMPLETED WITHOUT ANY ADVERSE REACTION, TOLERATED WELL. UNABLE TO START NEW IV DUE TO VEIN CONDITION, WILL CONTINUE TO MONITOR.
--- NOTE | 2019-11-07 14:59 | NUR ---
REPORT RECEIVED FROM GENO CHAIREZ. PT LAYING DOWN IN BED IN SUPINE POSITION; HOB AT 30 DEGREES. PT DENIES PAIN OR DISCOMFORT. BLOOD TRANSFUSION STARTED. WELDING TEACHER WILL MONITOR PATIENT PER BLOOD TRANSFUSION PROTOCOL.
--- NOTE | 2019-11-07 16:00 | NUR ---
PATIENT CONTINUE WITH BLOOD TRANSFUSION. VSS. PT AFEBRILE. PT DENIES PAIN OR DISCOMFORT. RN CLINICAL DOCUMENTATION SPECIALIST WILL CONTINUE TO MONITOR.
--- NOTE | 2019-11-07 17:21 | NUR ---
BLOOD TRANSFUSION COMPLETE. PT TOLERATED THE TRANSFUSIO WELL. NO ADVERSE REACTIONS NOTED. HEALTHCARE TRANSLATOR WILL CONTINUE TO MONITOR
[2019-11-07 18:38] LABS: MEAN CELL VOLUME 88.8 fL CALC (80.0-100.0); MEAN CORPUSCULAR HGB CONC 33.8 g/dL CAL (32.0-36.0); RED BLOOD COUNT 3.13 mill/uL (4.70-6.10); RED CELL DISTRI WIDTH 14.4 % (11.5-15.5)
[2019-11-07 18:39] LABS: HEMATOCRIT 27.8 % (39.0-50.0); HEMOGLOBIN 9.4 g/dl (14.0-18.0)
--- NOTE | 2019-11-07 22:00 | NUR ---
REPORT RECEIVED FROM José LEIGH RN, CARE OF PT ASSUMED @ THIS TIME.
--- NOTE | 2019-11-08 00:13 | NUR ---
PT RESTING IN BED, APPEARS COMFORTABLE AND IN NO APPARENT DISTRESS. CALL ALMARAZ WITHIN REACH. BED LOCKED IN LOW POSITION W/ BEDRAILS X2. ITEMS WITHIN REACH.
[2019-11-08 00:41] VITALS: BP 104/57
--- NOTE | 2019-11-08 04:34 | NUR ---
PT APPEARS TO BE SLEEPING COMFORTABLY. NO APPARENT DISTRESS. RESPIRATIONS REGULAR AND UNLABORED. CALL ALMARAZ REMAINS WITHIN REACH, FALL AND SAFETY INTERVENTIONS REMAIN IN PLACE.
[2019-11-08 04:41] VITALS: BP 96/54
[2019-11-08 05:22] LABS: HEMATOCRIT 24.9 % (39.0-50.0); HEMOGLOBIN 8.5 g/dl (14.0-18.0); MEAN CELL VOLUME 88.6 fL CALC (80.0-100.0); MEAN CORPUSCULAR HGB 30.2 pG CALC (26.0-32.0); MEAN CORPUSCULAR HGB CONC 34.1 g/dL CAL (32.0-36.0); RED BLOOD COUNT 2.81 mill/uL (4.70-6.10); RED CELL DISTRI WIDTH 14.7 % (11.5-15.5)
[2019-11-08 05:42] LABS: ALKALINE PHOSPHATASE 78 u/l (38-126); ANION GAP 8 (6-22 (CALC)); BILIRUBIN, TOTAL 0.5 mg/dL (0.0-1.4); BUN 14 mg/dL (8-23); BUN/CREATININE RATIO 16 (12-20 (CALC)); CARBON DIOXIDE 26 mmol/l (22-30); CHLORIDE 102 mmol/l (95-108); CREATININE 0.9 mg/dL (0.7-1.3); GFR > 60 ML/MIN (>=60 (CALC)); GFR FOR AFR.AMER. > 60 ML/MIN (>=60 (CALC)); POTASSIUM 3.1 mmol/l (3.5-5.1); SGOT/AST 26 u/l (19-48); SODIUM 133 mmol/l (137-146)
[2019-11-08 05:52] LABS: ALBUMIN 2.3 g/dL (3.2-5.0); TOTAL PROTEIN 4.9 g/dL (6.3-8.2)
--- NOTE | 2019-11-08 08:00 | NUR ---
PT SITTING IN CHAIR AT BEDSIDE, NO SIGNS OF DISTRESS NOTED, RESP EVEN AND UNLABORED. PT ALERT AND ORIENTED X3, DISCUSSED POC, ASSESSMENT COMPLETED AT THIS TIME. CALL LIGHT IN REACH,CONTINUE TO MONITOR.
[2019-11-08 08:14] VITALS: BP 102/65
--- NOTE | 2019-11-08 08:31 | NUR ---
11/07/19 Patient is seen for gait training and endurance exercise. His balance is greatly imporved and his endurance is as well. He is able to ambulate with FWW x 90 feet limited by dyspnea. Initially he was losing his balance backwards. He is no longer doing this and demonstrates improved balance and capability with transitional movement. Am Pac score is 14 and he would do well in ECF to work on fall prevention and bowel and bladder program
[2019-11-08 11:09] VITALS: BP 111/59
--- NOTE | 2019-11-08 11:19 | NUR ---
DISCUSSED POTASSIUM PO, PT VERBALIZED UNDERSTANDING. TOOK MEDICATION WITHOUT DIFFICULTIES. CALL LIGHT IN REACH,CONTINUE TO MONITOR.
[2019-11-08 15:40] VITALS: BP 101/64
[2019-11-08 18:59] VITALS: BP 105/66
--- NOTE | 2019-11-08 19:00 | NUR ---
REPORT RECEIVED FROM Jesus SALES LPN, CARE OF PT ASSUMED @ THIS TIME. PT RESTING IN BED, NO APPARENT DISTRESS OR DISCOMFORT. DENIES NEEDS @ THIS TIME. CALL ALMARAZ WITHIN REACH, AGREES TO CALL PRN.
--- NOTE | 2019-11-08 20:30 | NUR ---
PHYSICAL ASSESMENT COMPLETED. VS TAKEN BY LETY @ 1909 ASSESSED. PLAN OF CARE REVIEWED, PT VERBALIZES UNDERSTANDING, DENIES QUESTIONS @ THIS TIME. SEE MAR FOR MED ADMINASTRATION. TOLERATED PILLS WHOLE W/ SIPS H20, ONE AT A TIME. PT DENIES NEEDS @ THIS TIME, CALL ALMARAZ WITHIN REACH, AGREES TO CALL PRN. BED LOCKED IN LOW POSITION W/ BEDRAILS UP X2. ITEMS WITHIN REACH.
[2019-11-09 01:07] VITALS: BP 94/50
--- NOTE | 2019-11-09 01:21 | NUR ---
VS TAKEN BY SPRAYER MACHINE @ 0107 ASSESSED. PT APPEARS TO BE SLEEPING COMFORTABLY, NO APPARENT DISTRESS, RESP REGUALR AND UNLABORED. CALL ALMARAZ REMAINS WITHIN REACH, BED REMAINS LOCKED IN LOW POSITION W/ BEDRAILS UP X2.ITEMS REMAIN WITHIN REACH.
[2019-11-09 04:27] VITALS: BP 121/68
[2019-11-09 05:08] LABS: HEMATOCRIT 25.6 % (39.0-50.0); HEMOGLOBIN 8.6 g/dl (14.0-18.0); MEAN CELL VOLUME 89.5 fL CALC (80.0-100.0); MEAN CORPUSCULAR HGB 30.1 pG CALC (26.0-32.0); MEAN CORPUSCULAR HGB CONC 33.6 g/dL CAL (32.0-36.0); RED BLOOD COUNT 2.86 mill/uL (4.70-6.10); RED CELL DISTRI WIDTH 14.7 % (11.5-15.5)
[2019-11-09 05:13] LABS: ALBUMIN 2.5 g/dL (3.2-5.0); ALKALINE PHOSPHATASE 77 u/l (38-126); ANION GAP 9 (6-22 (CALC)); BILIRUBIN, TOTAL 0.6 mg/dL (0.0-1.4); BUN 10 mg/dL (8-23); BUN/CREATININE RATIO 12 (12-20 (CALC)); CARBON DIOXIDE 25 mmol/l (22-30); CHLORIDE 100 mmol/l (95-108); CREATININE 0.8 mg/dL (0.7-1.3); GFR > 60 ML/MIN (>=60 (CALC)); GFR FOR AFR.AMER. > 60 ML/MIN (>=60 (CALC)); POTASSIUM 3.1 mmol/l (3.5-5.1); SGOT/AST 25 u/l (19-48); SODIUM 131 mmol/l (137-146); TOTAL PROTEIN 5.2 g/dL (6.3-8.2)
--- NOTE | 2019-11-09 06:45 | NUR ---
VS TAKEN BY SIMRAN AM ASSESSED. PT APPEARS TO BE SLEEPING COMFORTABLY, NO APPARENT DISTRESS, RESP REGUALR AND UNLABORED. CALL ALMARAZ REMAINS WITHIN REACH, BED REMAINS LOCKED IN LOW POSITION W/ BEDRAILS UP X2.ITEMS REMAIN WITHIN REACH.
[2019-11-09 08:07] VITALS: BP 98/62
--- NOTE | 2019-11-09 08:07 | NUR ---
PT SITTING IN BED. A&O X3. NO DISTRESS NOTED. PT REPORTS TO BE FEELING BETTER TODAY. PT DEMONSTRATED EFFECTIVE USE OF IS DEVICE X10 WITH GOAL SET AT 1500. EXPLAINED TO PT THAT DEVICE SHOULD BE USED X10 EVERY HOUR WHILE AWAKE. PT VERABLIZED UNDERSTANDING. ASSESSMENT COMPLTED. DISCUSSED POC. CALL LIGHT IN REACH. CONTINUE TO MONITOR.
[2019-11-09 11:36] VITALS: BP 97/61
--- NOTE | 2019-11-09 11:43 | NUR ---
PT SITTING IN CHAIR EATING LUNCH. NO DISTRESS NOTED. NO NEEDS AT THIS TIME. ZOSYN INITIATED. CALL LIGHT IN REACH. CONTINUE TO MONITOR.
[2019-11-09] MEDS ORDERED: PROTONIX40 M2 PO (14:42)
[2019-11-09] MEDS ORDERED: Levaquin PO (14:53)
[2019-11-09] MEDS ORDERED: OS-CAL 500500 M1 PO (14:54)
[2019-11-09] MEDS ORDERED: KLOR-CON M2020 MEQ PO (14:55)
[2019-11-09] MEDS ORDERED: FLORASTOR250 M1 PO (14:56)
--- NOTE | 2019-11-09 15:34 | NUR ---
D/C INSTRUCTIONS GIVEN TO PT. PT VERBALIZED UNDERSTANDING. IV REMOVED, INTACT UPON REMOVAL.
--- NOTE | 2019-11-09 15:45 | NUR ---
PTS NOTIFIED THAT PT WAS TO BE D/C, PT CONCERNED OVER WALLET, PER SHE HAS PTS BELONGINGS AT HOME. TO [facility] PT IN A FEW MINUTES.
--- NOTE | 2019-11-09 16:24 | NUR ---
Discharge instructions given. Patient verbalizes understanding of same. Discharged in stable condition via wheelchair to home with staff. All belongings sent with pt.
== END 2019-11-09 16:24 | disposition home or self-care (01) | DRG 640 ==
LOC: ED 11:35 → ED-I 13:45 → ED 14:02 → MS2 14:03 → ED-I 14:03 → MS2 14:28
PROVIDERS: Family Medicine; Internal Medicine Nephrology; Nurse Practitioner Family; ADMIT Internal Medicine; ATTEND Internal Medicine
PROC: 30233N1 Transfusion of Nonautologous Red Blood Cells into Peripheral Vein, Percutaneous Approach (ICD-10-PCS; principal; 2019-11-07)
PROC: 30233N1 Transfusion of Nonautologous Red Blood Cells into Peripheral Vein, Percutaneous Approach (ICD-10-PCS; 2019-11-07)
DX: E87.1 Hypo-osmolality and hyponatremia (principal); G93.41 Metabolic encephalopathy; J18.9 Pneumonia, unspecified organism; C15.9 Malignant neoplasm of esophagus, unspecified; E78.5 Hyperlipidemia, unspecified; I95.9 Hypotension, unspecified; R26.89 Other abnormalities of gait and mobility; D64.9 Anemia, unspecified; E87.6 Hypokalemia; E83.51 Hypocalcemia; R19.5 Other fecal abnormalities; Z96.89 Presence of other specified functional implants
CPT/HCPCS: G0378; P9016; Q9967; S0164

== ENCOUNTER 2020-01-11 10:54 | Inpatient (IN) | payer MEDICARE ==
[~2020-01-11] VITALS: Ht 175.3 cm; Wt 88.0 kg
[~2020-01-11 10:54] MED LIST changes: +FLORASTOR250 M1 PO; +KLOR-CON M2020 MEQ PO; +OS-CAL 500500 M1 PO; +PROTONIX40 M2 PO
--- NOTE | 2020-01-11 10:54 | NUR ---
PATIENT TO ROOM VIA EMS AND PHYSICIAN AT BEDSIDE FOR EVAL
--- NOTE | 2020-01-11 11:00 | NUR ---
PT STATES THAT HE IS A CANCER PT TAKING CHEMO AND RADI AND BECAUSE OF THIS HE IS NORMALLY WEAK. HE STATES FEELING THE INCREASE IN WEAKNESS THAT HE FELT LIKE HE COULD NOT MOVE TODAY. PT IS ABLE TO MOVE EXTREMETIES BUT IS WEAK. +PMS. NIH 0. STATES PT HAS NOT HAD A BM FOR THREE DAYS AND URINE OUTPUT IS LOW. 30 ML OF TODAY
--- NOTE | 2020-01-11 11:07 | NUR ---
PT COVID SWABBED
--- NOTE | 2020-01-11 12:00 | NUR ---
PT RESTING ON STRETCHER WITH CALL LIGHT WITHIN REACH
[2020-01-11 12:07] LABS: HEMATOCRIT 23.9 % (39.0-50.0); IMMATURE GRANULOCYTES 4.6 % (0.0-5.0); MEAN CELL VOLUME 88.5 fL CALC (80.0-100.0); MEAN CORPUSCULAR HGB 29.6 pG CALC (26.0-32.0); MEAN CORPUSCULAR HGB CONC 33.5 g/dL CAL (32.0-36.0); NEUT# 2.53 thou/uL (1.82-7.42); RED BLOOD COUNT 2.7 mill/uL (4.70-6.10); RED CELL DISTRI WIDTH 19.1 % (11.5-15.5)
[2020-01-11 12:22] LABS: ACT PARTIAL THROMBO TIME 25.4 SECONDS (20.0-32.5); INTERNATIONAL NORMALIZED RATIO 1.1 RATIO (0.7-1.3); PROTHROMBIN TIME 11.1 SECONDS (9.0-12.5)
[2020-01-11 12:23] LABS: ALBUMIN 2.3 g/dL (3.2-5.0); ALKALINE PHOSPHATASE 63 u/l (38-126); ANION GAP 10 (6-22 (CALC)); BILIRUBIN, TOTAL 0.5 mg/dL (0.0-1.4); BUN 12 mg/dL (8-23); BUN/CREATININE RATIO 18 (12-20 (CALC)); CARBON DIOXIDE 23 mmol/l (22-30); CHLORIDE 92 mmol/l (95-108); CREATININE 0.6 mg/dL (0.7-1.3); GFR > 60 ML/MIN (>=60 (CALC)); GFR FOR AFR.AMER. > 60 ML/MIN (>=60 (CALC)); POTASSIUM 3.8 mmol/l (3.5-5.1); SGOT/AST 24 u/l (19-48); SODIUM 121 mmol/l (137-146); TOTAL PROTEIN 4.9 g/dL (6.3-8.2)
--- NOTE | 2020-01-11 13:00 | NUR ---
PT ASKED FOR PLAN OF CARE, PT NOTIFIED OF PENDING RESULTS AND BUSY ER. PT DENIES ANY OTHER NEEDS. WILL CONTINUE TO MONITOR. CALL LIGHT WITHIN REACH. PT NOTIFIED OF NEEDED URINE AND HE STATES HE CANNOT AT THIS TIME
[2020-01-11] MEDS ORDERED: ONDANSETRON ODT8 MG PO (13:54)
--- NOTE | 2020-01-11 14:00 | NUR ---
PT RESTING WITH EYES CLOSED AND AT BEDSIDE. CALL LIGHT WITHIN REACH
[2020-01-11] MEDS ORDERED: PROCHLORPERAZINE RE (14:03)
--- NOTE | 2020-01-11 15:00 | NUR ---
PT STRAIGHT CATH FOR URINE AFTER MULTIPLE FAILED ATTEMPTS TO COLLECT. PT TOLERATED WELL. YELLOW AND CLEAR URINE APPEARANCE
[2020-01-11 15:21] LABS: URINE BILIRUBIN - DIPSTICK NEGATIVE (NEGATIVE); URINE BLOOD DIPSTICK NEGATIVE (NEGATIVE); URINE COLOR YELLOW; URINE GLUCOSE - DIPSTICK NEGATIVE (NEGATIVE); URINE KETONE 15 mg/dL (NEGATIVE); URINE LEUK ESTERASE NEGATIVE (NEGATIVE); URINE NITRITE - DIPSTICK NEGATIVE (Negative); URINE PH 8.5 (4.5-8.0); URINE PROTEIN - DIPSTICK TRACE mg/dL (NEG-TRACE)
--- NOTE | 2020-01-11 16:00 | NUR ---
RESTING WITH EYES CLOSED
--- NOTE | 2020-01-11 16:41 | NUR ---
ATTEMPTED TO CALL MED [facility] FOR REPORT, SIRISHA ASKED TO CALL LATER UNTIL THEY ARE NO LONGER BUSY WHILE THEY TEND TO CRITICAL PT.
--- NOTE | 2020-01-11 16:55 | NUR ---
GAVE REPORT TO ANGEL LUIS
--- NOTE | 2020-01-11 17:00 | NUR ---
PT TRANSPORTED TO [facility] VIA STRETCHER STABLE AND IN NO DISTRESS. PT CARE ASSUMED TO [facility]. Admission Note Report Given to: Transported by: Wheelchair X Stretcher Transported with: X Nurse Transporter X Patent IV O2 X Radio Board Operator Announcer Location: ICU X MS2
[2020-01-11 17:35] VITALS: BP 101/56
[2020-01-11 18:54] VITALS: BP 111/60
--- NOTE | 2020-01-11 19:00 | NUR ---
RECEIVED REPORT FROM DAY NURSE PATIENT RESTING IN BED, AWAKE, DENIES PAIN, EVEM UNLABORED BREATHING CALL LIGHT AT REACH.
--- NOTE | 2020-01-11 21:00 | NUR ---
NOTIFIED DR. HICKS ABOUT PATIENT NOT HAVING BM FOR A WEEK WITH ORDERS MADE.
--- NOTE | 2020-01-11 22:18 | NUR ---
PATIENT OFFERED MILK OF MAGNESIA PER ORDER, PATIENT REFUSED, STATED HE DID NOT SLEEP FOR DAYS HE WANTED TO SLEEP AMD WILL TAKE IT IN THE MORNING.
[2020-01-11 22:19] VITALS: BP 116/64
--- NOTE | 2020-01-12 | NUR ---
PATIENTR APPEARS TO BE SLEEPING WITH EYES CLOSED,BREATHING EVEN AND UNLABORED CALL LIGHT AT REACH.
[2020-01-12 04:00] VITALS: BP 116/64
--- NOTE | 2020-01-12 04:14 | NUR ---
PATIENT APPEARS TO BE SLEEPING WITH EYES CLOSED, BREATHING EVEN AND UNLABORED, CALL LIGHT AT REACH.
[2020-01-12 06:26] LABS: HEMATOCRIT 25.2 % (39.0-50.0); HEMOGLOBIN 8.4 g/dl (14.0-18.0); IMMATURE GRANULOCYTES 5.4 % (0.0-5.0); MEAN CELL VOLUME 89.7 fL CALC (80.0-100.0); MEAN CORPUSCULAR HGB 29.9 pG CALC (26.0-32.0); MEAN CORPUSCULAR HGB CONC 33.3 g/dL CAL (32.0-36.0); NEUT# 2.42 thou/uL (1.82-7.42); RED BLOOD COUNT 2.81 mill/uL (4.70-6.10); RED CELL DISTRI WIDTH 19.4 % (11.5-15.5)
[2020-01-12 06:38] LABS: ANION GAP 10 (6-22 (CALC)); BUN 9 mg/dL (8-23); BUN/CREATININE RATIO 17 (12-20 (CALC)); CARBON DIOXIDE 21 mmol/l (22-30); CHLORIDE 95 mmol/l (95-108); CREATININE 0.6 mg/dL (0.7-1.3); GFR > 60 ML/MIN (>=60 (CALC)); GFR FOR AFR.AMER. > 60 ML/MIN (>=60 (CALC)); POTASSIUM 3.9 mmol/l (3.5-5.1); SODIUM 122 mmol/l (137-146)
--- NOTE | 2020-01-12 08:58 | NUR ---
PT PRESENTS WITH WEAKNESS AND CLINICAL IMPRESSION NEUTROPENIC FEVER. VANCOMYCIN IS ORDERED FOR PHARMACY TO DOSE. SCR = 1 MG/DL CRCL = 81.5 ML/MIN ABW = 87.628 KG START VANCOMYCIN 1250 MG IV Q12H STARTING 01/11 @ 0900. DRAW VANCO TROUGH 30 MIN B4 4TH DOSE ON 01/12 @ 2029. GOAL TROUGH = 15-20 MCG/ML. PHARMACY WILL CONTINUE TO FOLLOW.
[2020-01-12 09:49] VITALS: BP 110/60
--- NOTE | 2020-01-12 10:20 | NUR ---
RECIEVED REPORT FROM GENO STRICKLAND . PT RESTING IN SEMI FOWLERS POSITION UPON ENTERING ROOM. INTRODUCED SELF TO PT AND DISCUSSED POC. ASSESSMENT AND VIATLS OBTAINED AT THIS TIME. HEART RHYTHM IS NORMAL, TELE IN PLACE. RESPIRATIONS ARE EVEN AND UNALBORED, PT DENIES ANY SOB. LUNG SOUNDS ARE CLEAR. RADIAL AND PEDAL PULSES ARE STRONG WITH NORMAL CAPILLARY REFILL. ALCIDES HOSE APPILED TO LOWER EXTREMITIES. PT DOES PRESENT WITH STAGE 2 WOUND TO RIGHT BUTTOCK. WOUND IS CLEAN WITH NO DRIANAGE, DRESSING CHNAGED AT THIS TIME. AQUACEL APPILED TO LEFT UPPER ABDOMEN,INFORMED IN REPORT THAT PT PREVIOUSLY HAD PEG TUBE. DRESSING IS CDI AT THIS TIME. IV FLUIDS RUNNING AT 100 ML ORDERED, SITE APPEARS HEALTHY AND PATENT.REASSESSMENT OF GLUCOSE RESULTING IN 70, ORANGE JUICE MIXED WITH SUGAR GIVEN TO PT. ENCOURAGED PT TO DRINK ORANGE JUICE TO HELP WITH GLUCOSE. PT DENIES ANY PAIN OR DISCOMFORTS AT THIS TIME. ALL SAFETY PRECAUTIONS IN PLACE WITH CALL LIGHT IN PLACE. WILL CONTIUE TO MONITOR.
[2020-01-12 11:27] VITALS: BP 134/59
--- NOTE | 2020-01-12 12:00 | NUR ---
PT RESTING IN SEMI FOWLERS POSITION WATCHING TV. RESPIRATIONS ARE EVEN AND UNLABORED. PT REPORTS NO BM AT THIS TIME. PT DENIES ANY PAIN OR DISCOMFORTS AT THIS TIME. TELE IN PLACE. ALL SAFTEY PRECAUTIONS REMAIN IN PLACE WITH CALL LIGHT IN REACH.WILL CONTINUE TO MONITOR.
--- NOTE | 2020-01-12 12:10 | NUR ---
ANSWERING SERVICE NOTIFIED OF CONSULT FOR HYPONATREMIA. SPOKE WITH
[2020-01-12 15:06] VITALS: BP 114/65
--- NOTE | 2020-01-12 16:00 | NUR ---
PT RESTING IN SEMI FOWLERS POSITION WATCHING TV.REPIRATIONS ARE EVEN AND UNLABORED.PT DENIES HAVING A BM AFTER MIRLAX AND MOM ADMINISTERED. PT DENIES ANY PAIN OR DISCOMFORTS AT THIS TIME.ALL SAFTEY PRECAUTIONS REMAIN IN PLACE WITH CALL LIGHT IN REACH. WILL CONTINUE TO MONITOR.
--- NOTE | 2020-01-12 20:37 | NUR ---
ASSESSMENT COMPLETED. NO DISTRESS NOTED; DENIES PAIN. PT. CLEANED OF LARGE INCONTINENCE OF URINE AND CHI CARE GIVEN AND CHI PAD PLACED AND URINAL PLACED IN ATTEMPT TO GET URINE SAMPLE NEEDED. IV SITE PATENT AND INFUSING ORDERED IVF WELL. ENCOURAGED TO CALL FOR ANY NEEDS. CALL LIGHT IS IN REACH.
[2020-01-12 20:55] VITALS: BP 110/61
--- NOTE | 2020-01-12 22:33 | NUR ---
ATTEMPTED TO GET A UA SAMPLE PER ORDER BY PLACING URINAL EARLIER IN SHIFT AND PT. WAS INCONTINENT AND HAD REMOVED HIS URINAL HIMSELF. CALLED AND SPOKE WITH SHOSHANA IN LAB AND ASKED IF THIS ADDED ON ORDER TO UA COULD BE PULLED FROM PREVIOUS DAY. PER TRUCKLOAD CHECKER HE WILL CHECK ON IT.
[2020-01-12 23:36] VITALS: BP 108/50
--- NOTE | 2020-01-12 23:36 | NUR ---
PT. RESTING IN BED WITH NO DISTRESS NOTED; RESP. EVEN AND UNLABORED. DENIES NEEDS/PAIN. VSS. ENCOURAGED TO CALL FOR ANY NEEDS.
[2020-01-13 04:26] VITALS: BP 124/73
--- NOTE | 2020-01-13 05:00 | NUR ---
ATTEMPTED TO RESTART IV SITE PT. HAS EMS SITE AND UNSUCCESSFUL AT THIS TIME. PER PT. HE WOULD LIKE TO LEAVE EMS SITE IN IT IS WORKING FINE. ALSO THIS BUSINESS ACCOUNT LEADER ATTEMPTED TO OBTIAN AM LAB DRAW X2 AND UNSUCCESSFUL AT THIS TIME. PER PT. HE WILL WAIT FOR NEXT SHIFT TO TRY. DRAWER LINER AWARE OF UNSUCCESSFUL ATTEMPTS FLOOR NURSE ATTEMPTED.
[2020-01-13 07:46] VITALS: BP 117/69
--- NOTE | 2020-01-13 09:00 | NUR ---
PT SEEN AWAKE, ALERT, DEBILITATED. LUNGS CLEAR, RA. PT IS BEDBOUND AT THIS POINT, WEAKENED PRESUMABLY BY CHEMO. PT UNABLE TO STATE WHEN HE LAST HAD A BM. MINIMAL SWELLING LLE.
[2020-01-13 09:21] LABS: HEMATOCRIT 25.6 % (39.0-50.0); HEMOGLOBIN 8.5 g/dl (14.0-18.0); MEAN CELL VOLUME 90.1 fL CALC (80.0-100.0); MEAN CORPUSCULAR HGB 29.9 pG CALC (26.0-32.0); MEAN CORPUSCULAR HGB CONC 33.2 g/dL CAL (32.0-36.0); RED BLOOD COUNT 2.84 mill/uL (4.70-6.10); RED CELL DISTRI WIDTH 19.8 % (11.5-15.5)
[2020-01-13 09:41] LABS: ALKALINE PHOSPHATASE 75 u/l (38-126); ANION GAP 10 (6-22 (CALC)); BILIRUBIN, TOTAL 0.4 mg/dL (0.0-1.4); BUN 8 mg/dL (8-23); BUN/CREATININE RATIO 16 (12-20 (CALC)); CARBON DIOXIDE 22 mmol/l (22-30); CHLORIDE 91 mmol/l (95-108); CREATININE 0.5 mg/dL (0.7-1.3); GFR > 60 ML/MIN (>=60 (CALC)); GFR FOR AFR.AMER. > 60 ML/MIN (>=60 (CALC)); POTASSIUM 3.5 mmol/l (3.5-5.1); SGOT/AST 27 u/l (19-48); TOTAL PROTEIN 4.5 g/dL (6.3-8.2)
--- NOTE | 2020-01-13 10:05 | NUR ---
01/12/20 PT screen. Patient would benefit from PT intervention is medical is in agreement
[2020-01-13 10:08] LABS: SODIUM 119 mmol/l (137-146)
[2020-01-13 10:45] VITALS: BP 93/59
--- NOTE | 2020-01-13 15:25 | NUR ---
DRESSINGS CHANGED TO PREVIOUS PEG SITE AND RIGHT COCCYX. SKIN AROUND PEG SITE IS REDDENED AND THERE IS CLEAR DRAINAGE, MODERATE AMOUNT. COCCYX IS PINK WITH SMALL OPEN AREA. NO FEVER, NO COMPLAINTS.
[2020-01-13 15:34] VITALS: BP 95/60
--- NOTE | 2020-01-13 17:20 | NUR ---
SUPPOSITORY AND PERICOLACE PROVIDED PT COULD NOT REMEMBER LAST BM. CALL ALMARAZ WITHIN REACH FOR WHEN HE NEEDS ASSIST TO CLEAN UP.
--- NOTE | 2020-01-13 20:30 | NUR ---
PT. REFUSES STOOL SOFTNER. PT. IS INCONTINENT OF BM AND URINE, CHI CARE GIVEN AND NEW BRIEF APPLIED. REPOSITIONED IN BED. VANCO TROUGH OBTAINED PER ORDER. PT. ENCOURAGED TO DRINK SEGURA TO INCREASE SODIUM. PT. REMAINS WITH EMS SITE. THIS LOG ROLLER ATTEMPTED TO RESTART IV THIS AM AND WAS UNSUCCESSFUL. PT. IS OKAY WITH LEAVING CURRENT EMS SITE IN, IT IS WORKING FINE. PT. DENIES FURTHER NEEDS.ASSESSMENT COMPLETED. CALL LIGHT IS IN REACH.
[2020-01-13 20:43] VITALS: BP 140/60
[2020-01-13 23:39] VITALS: BP 145/78
[2020-01-14] VITALS (28 sets, daily range): BP systolic 72–106; BP diastolic 45–64
--- NOTE | 2020-01-14 00:15 | NUR ---
PT. RESTING IN BED AND DENIES NEEDS. ENCOURAGED TO CALL FOR ANY NEEDS. CALL LIGHT IS IN REACH.
--- NOTE | 2020-01-14 04:45 | NUR ---
PT. CLEANED OF A LARGE BM, CHI CARE PROVIDED AND NEW BRIEF AND PADS PLACED. AM LABS OBTAINED AND NEW IV SITE PLACED TO RAC X1 ATTEMPT AND EMS SITE REMOVED WITH CATHETER TIP INTACT.
[2020-01-14 05:47] LABS: BUN 7 mg/dL (8-23); CARBON DIOXIDE 23 mmol/l (22-30); CHLORIDE 93 mmol/l (95-108); CREATININE 0.6 mg/dL (0.7-1.3); GFR > 60 ML/MIN (>=60 (CALC)); GFR FOR AFR.AMER. > 60 ML/MIN (>=60 (CALC)); POTASSIUM 3.7 mmol/l (3.5-5.1); SODIUM 120 mmol/l (137-146)
--- NOTE | 2020-01-14 06:45 | NUR ---
REPORT RECEIVED FROM ANANYA LORA. CARE ASSUMED.
--- NOTE | 2020-01-14 07:00 | NUR ---
PT RESTING IN BED AWAKE. PT IS ALERT AND ORIENTED X3. SHIFT ASSESSMENT COMPLETED AT THIS TIME. IV PATENT X1. CALL LIGHT IN REACH. WILL CONTINUE TO MONITOR.
--- NOTE | 2020-01-14 09:24 | NUR ---
PT REFUSED BREAKFAST STATING HE JUST DOES NOT HAVE MUCH OF AN APPETITIE AND REQUESTED SOME CHICKEN BROTH. CHICKEN BROTH PROVIDED PER PATIENT REQUEST.
--- NOTE | 2020-01-14 10:00 | NUR ---
Claudine PALMA APRN AT BEDSIDE AT THIS TIME. NEW ORDERS RECEIVED.
--- NOTE | 2020-01-14 10:30 | NUR ---
PT CLEANSED OF LARGE BOWEL AND BLADDER INCONTINENCE. PICTURES OBTAINED OF BOTH ABDOMINAL AND BUTTOCKS WOUNDS. DRESSINGS. CHANGED. CULTURES OBTAINED OF WOUNDS. ZAZUETA INSERTED USING STERILE TECHNIQUE. IMMEADIATE RETURN OF CLEAR YELLOW URINE. PT TOLERATED WELL. PT HAD ALSO HAD A MODERATE AMOUNT OF COFFEE GROUND EMESIS. Claudine PALMA APRN NOTIFIED. NEW ORDERS RECIEVED. ABDOMINAL WOUND WITH RED OUTER BORDER. WET 2X2 FOLDED AND PLACED ON OPENING OF WOUND THEN COVERED WITH AQUACEL DRESSING. FOR RIGHT BUTTOCKS WOUND COVERED WITH AQUACEL. PT TOLERATED WELL. LABS OBTAINED AT THIS TIME WELL. CALL LIGHT IN REACH. WILL CONTINUE TO MONITOR.
[2020-01-14 11:25] LABS: HEMATOCRIT 25.8 % (39.0-50.0); HEMOGLOBIN 8.7 g/dl (14.0-18.0); MEAN CELL VOLUME 89.9 fL CALC (80.0-100.0); MEAN CORPUSCULAR HGB 30.3 pG CALC (26.0-32.0); MEAN CORPUSCULAR HGB CONC 33.7 g/dL CAL (32.0-36.0); RED BLOOD COUNT 2.87 mill/uL (4.70-6.10)
--- NOTE | 2020-01-14 12:09 | NUR ---
PT RESTING IN BED WITH EYES CLOSED RESP ARE EVEN AND UNLABORED. NO DISTRESS NOTED. CALL LIGHT IN REACH. WILL CONTINUE TO MONITOR.
--- NOTE | 2020-01-14 13:13 | NUR ---
PT PRESENTS WITH FEVER OF UNKNOWN ORIGIN. VANCOMYCIN ORDERED FOR PHARMACY TO DOSE. GOAL TROUGH = 15-20 MG/DL. PT HAD BEEN RECEIVING VANCOMYCIN 1250MG IV Q12H. TROUGH TODAY 30 MIN B4 4TH DOSE WAS 10. INCREASE VANCOMYCIN TO 1G IV Q8H. TROUGH TO BE DRAWN 01/14 @ 830. PHARMACY WILL CONTINUE TO FOLLOW.
--- NOTE | 2020-01-14 15:30 | NUR ---
PT RESTING IN BED AWAKE. PT HAD A LARGE LIQUID BOWEL MOVEMENT. PT CLEANSED OF BM. BP 84/48. HR 101. TEMP 99.0. Claudine PALMA APRN NOTIFIED OF VS. NEW ORDERS RECEIVED.
--- NOTE | 2020-01-14 16:00 | NUR ---
ROOM CLEANED BY THIS JUNK REMOVAL SPECIALIST AT THIS TIME
--- NOTE | 2020-01-14 16:15 | NUR ---
BOLUS STARTED PER ORDERS.
--- NOTE | 2020-01-14 16:55 | NUR ---
500CC BOLUS COMPLETED AT THIS TIME. BP 74/53. DR HICKS NOTIFIED ORDERS RECEIVED TO TRANSFER TO ICU. ICU NOTIFIED OF TRANSFER.
--- NOTE | 2020-01-14 17:17 | NUR ---
REPORT CALLED TO HAIDER LORA. NOTIFIED RICHMOND THAT PATIENT WAS BEING TRANSFERRED TO ICU. ASKED AGAIN THAT BRING PTS CELLPHONE.
--- NOTE | 2020-01-14 17:30 | NUR ---
male pt received to ICU bed 1 via bed in stable condition accompanied by Bogdan Kapoor, RN and Sydnie Farley CNA; no apparent distress noted; pt offers no complaints; monitoring attachments connected; afebrile; elena to gravity; #22 to rac intact with ivf/abt infusing without complication; dressing cdi to right buttock anf left upper abd; plan of care explained; dinner provided; call light within reach
--- NOTE | 2020-01-14 17:30 | NUR ---
PT TRANSFERRED TO ICU BED 1 VIA BED. PT ACCOMPANIED BY THIS GAUGE INSPECTOR AND LINEMAN APPRENTICE.
--- NOTE | 2020-01-14 18:00 | NUR ---
call returned to spouse Tess as per request; update provided; spouse to bring in cell phone tonight or combination building inspector; will continue to monitor
--- NOTE | 2020-01-14 18:05 | NUR ---
awake in bed; no apparent distress noted; pt offers no complaints; iv intact and patent to rac; sr/st on monitor; elena to gravity; call light within reach;
--- NOTE | 2020-01-14 18:20 | NUR ---
Dr Menard notified per health underwriter of BP 83/53; sr 98; awaiting orders
--- NOTE | 2020-01-14 19:00 | NUR ---
awakens easily. denies distress. o2 cont per nc. director of supply chain shows sinus rhythm ivcd. #22 rac ns infusing @ 100cchr. elena cath in place. urine clear yellow. dsg to rt buttock cdi. encouraged to stay off back. fall & air/contact precautions cont. blood drawn & sent to lab.
--- NOTE | 2020-01-14 20:00 | NUR ---
lab results rec'd. dr tobar notified.
--- NOTE | 2020-01-14 20:30 | NUR ---
dr mederos updated on pts condition. orders rec'd.
--- NOTE | 2020-01-14 22:00 | NUR ---
eyes closed. no distress. electronic device monitor shows sinus rhythm pacs ivcd hr 88.
[2020-01-15] VITALS (36 sets, daily range): BP systolic 97–125; BP diastolic 52–76
--- NOTE | 2020-01-15 00:01 | NUR ---
awake. denies distress. encouraged to turn. ivf infusing well.
--- NOTE | 2020-01-15 02:00 | NUR ---
resting quietly. resps even & unlabored. no apparent distress.
--- NOTE | 2020-01-15 04:00 | NUR ---
awake. denies distress. monitor car operator shows sinus rhythm pacs ivcd hr 78.
--- NOTE | 2020-01-15 06:18 | NUR ---
blood drawn & sent to lab.
[2020-01-15 06:30] LABS: HEMATOCRIT 22.2 % (39.0-50.0); HEMOGLOBIN 7.3 g/dl (14.0-18.0); MEAN CELL VOLUME 90.2 fL CALC (80.0-100.0); MEAN CORPUSCULAR HGB 29.7 pG CALC (26.0-32.0); MEAN CORPUSCULAR HGB CONC 32.9 g/dL CAL (32.0-36.0); RED BLOOD COUNT 2.46 mill/uL (4.70-6.10); RED CELL DISTRI WIDTH 20.2 % (11.5-15.5)
--- NOTE | 2020-01-15 06:45 | NUR ---
REPORT RECEIVED FROM JIGNESH TELLEZ. CARE ASSUMED.
[2020-01-15 06:49] LABS: ALBUMIN 1.7 g/dL (3.2-5.0); ALKALINE PHOSPHATASE 66 u/l (38-126); ANION GAP 9 (6-22 (CALC)); BILIRUBIN, TOTAL 0.4 mg/dL (0.0-1.4); BUN 9 mg/dL (8-23); BUN/CREATININE RATIO 14 (12-20 (CALC)); CARBON DIOXIDE 22 mmol/l (22-30); CHLORIDE 98 mmol/l (95-108); CREATININE 0.6 mg/dL (0.7-1.3); GFR > 60 ML/MIN (>=60 (CALC)); GFR FOR AFR.AMER. > 60 ML/MIN (>=60 (CALC)); POTASSIUM 3.4 mmol/l (3.5-5.1); SGOT/AST 19 u/l (19-48); SODIUM 126 mmol/l (137-146)
--- NOTE | 2020-01-15 07:20 | NUR ---
DR VASQUEZ AT BEDSIDE FOR CENTRAL LINE PLACEMENT.
--- NOTE | 2020-01-15 08:00 | NUR ---
PT SITTING UP IN BED AWAKE. PT IS ALERT AND ORIENTED X3. SHIFT ASSESSMENT COMPLETED AT THIS TIME. IV PATENT X2. CALL LIGHT IN REACH. WILL CONTINUE TO MONITOR.
--- NOTE | 2020-01-15 08:05 | NUR ---
PT SET UP FOR AM MEAL.
--- NOTE | 2020-01-15 08:38 | NUR ---
REPEATING COVID-19 RESPIRATORY PANEL PCR.
--- NOTE | 2020-01-15 09:00 | NUR ---
DR HICKS AT BEDSIDE AT THIS TIME.
--- NOTE | 2020-01-15 09:02 | NUR ---
VANCOMYCIN ORDERED FOR PHARMACY TO DOSE. PT HAD BEEN RECEIVING 1G IV Q8H. TROUGH WAS DRAWN EARLY, 3.5 HR BEFORE NEXT DOSE. TROUGH = 19 MCG/ML. GOAL TROUGH = 15-20 MCG/ML. BASED ON PTS CRCL AND TROUGH LEVEL, TRUE PREDICTED TROUGH IS 15.7 MCG/ML. WILL CONTINUE AT 1G IV Q8H AND RE-CHECK TROUGH 01/15 @ 0830. PHARMACY WILL CONTINUE TO FOLLOW.
--- NOTE | 2020-01-15 10:03 | NUR ---
DR ARNETT AT BEDSIDE FOR WOUND CARE CONSULT.
--- NOTE | 2020-01-15 10:50 | NUR ---
PT TO RADIOLOGY VIA STRETCHER ACCOMPANIED BY NURSE X2 ON MONITOR.
--- NOTE | 2020-01-15 11:16 | NUR ---
PT RETURNED FROM RADIOLOGY VIA STRETCHER. PT MOVED TO ICU BED 4 DUE TO NEGATIVE COVID TESTING. ADVISED PATIENT THAT COULD COME AND VISIT. HE STATES HE WILL LET HER KNOW.
--- NOTE | 2020-01-15 11:18 | NUR ---
IV REMOVED AT THIS TIME DUE TO SITE CHANGE, CATHATER STILL INTACT. PT TOLERATED WELL. WILL CONTIUE TO MONITOR
--- NOTE | 2020-01-15 11:30 | NUR ---
PT SET UP FOR NOON MEAL AT THIS TIME.
--- NOTE | 2020-01-15 11:48 | NUR ---
PT SITTING UP EATING LUNCH AT THIS TIME. RESP ARE EVEN AND UNLABORED. NO DISTRESS NOTED. VSS ON MONITOR. CALL LIGHT IN REACH. WILL CONTINUE TO MONITOR.
--- NOTE | 2020-01-15 11:55 | NUR ---
SON AT BEDSIDE UPDATED ON FATHER'S CONDITION AT THIS TIME.
--- NOTE | 2020-01-15 12:21 | NUR ---
dr ely at bedside at this time
--- NOTE | 2020-01-15 13:40 | NUR ---
PATIENT PROVIDED PERSONAL HYGIENE AND ASSISTED WITH PARTIAL BATH. WOUND CARE PROVIDED FOLLOWS: CLEANSED ABDOMEN WITH SOAP AND WATER; APPLIED SKIN PREP THEN NYSTATIN POWDER X2 LAYERS; APPLIED OPTIFOAM AND SECURED WITH TAPE. BUTTOCKS WOUND CLEANED WITH SOAP AND WATER; APPLIED ZINC OXIDE PER MD ORDERS. HEEL PROTECTORS APPLIED WELL. PT ON AIR MATTRESS WELL. CALL LIGHT IN REACH. WILL CONTINUE TO MONITOR.
--- NOTE | 2020-01-15 15:29 | NUR ---
INFECTIOUS DISEASE CONSULT COMPLETED WITH DR CORRAL.
--- NOTE | 2020-01-15 16:16 | NUR ---
PT RESTING IN BED AWAKE AND WATCHING TV. RESP ARE EVEN AND UNLABORED. NO DISTRESS NOTED. CALL LIGHT IN REACH. WILL CONTINUE TO MONTOR.
--- NOTE | 2020-01-15 17:50 | NUR ---
PT SET UP FOR PM MEAL AT THIS TIME. PT REQUESTED TO WAIT TO EAT DUE TO VISITING WITH SPOUSE AT THIS TIME. MEAL PLACED ON BED SIDE TABLE. ASKED THAT PATIENT NOTIFY STAFF WHEN READY FOR ASSISTANCE WITH MEAL SET UP. PT VERBALIZED UNDERSTANDING. CALL LIGHT IN REACH. WILL CONTINUE TO MONITOR.
--- NOTE | 2020-01-15 19:00 | NUR ---
left. awake. denies distress. lunchroom monitor shows sinus rhythm hr 94. rij tlc in place. ns infusing @ 100cchr. po fluids encouraged. elena cath in place. urine clear yellow. encouraged to turn but pt refuses. air mattress & fall precautions cont.
--- NOTE | 2020-01-15 22:00 | NUR ---
eyes closed. no distress. quality assurance monitor final shows sinus rhythm pacs ivcd hr88.
[2020-01-16] VITALS (22 sets, daily range): BP systolic 90–110; BP diastolic 54–69
--- NOTE | 2020-01-16 00:01 | NUR ---
eyes closed. no apparent distress. elena draining well.
--- NOTE | 2020-01-16 02:00 | NUR ---
awake. denies distress. driver license agent shows sinus rhythm pacs ivcd hr 90.
--- NOTE | 2020-01-16 04:00 | NUR ---
resting quietly. resps even & unlabored. no apparent distress.
--- NOTE | 2020-01-16 05:00 | NUR ---
blood drawn & sent to lab.
[2020-01-16 05:34] LABS: HEMATOCRIT 21.8 % (39.0-50.0); HEMOGLOBIN 7.3 g/dl (14.0-18.0); MEAN CELL VOLUME 89.7 fL CALC (80.0-100.0); MEAN CORPUSCULAR HGB CONC 33.5 g/dL CAL (32.0-36.0); RED BLOOD COUNT 2.43 mill/uL (4.70-6.10); RED CELL DISTRI WIDTH 20.2 % (11.5-15.5)
[2020-01-16 05:50] LABS: ANION GAP 6 (6-22 (CALC)); BUN 5 mg/dL (8-23); BUN/CREATININE RATIO 9 (12-20 (CALC)); CARBON DIOXIDE 23 mmol/l (22-30); CHLORIDE 98 mmol/l (95-108); CREATININE 0.5 mg/dL (0.7-1.3); GFR > 60 ML/MIN (>=60 (CALC)); GFR FOR AFR.AMER. > 60 ML/MIN (>=60 (CALC)); POTASSIUM 3.5 mmol/l (3.5-5.1); SODIUM 123 mmol/l (137-146)
--- NOTE | 2020-01-16 07:04 | NUR ---
PT ON CALLBELL ASKING STAFF TO REMOVE ALCIDES PRYOR BC THEY HURT. ACCUCHECK 109
--- NOTE | 2020-01-16 07:46 | NUR ---
PT ASSISTED STAFF IN MOVING PT UP IN BED. REPOSITIONED FOR BREAKFAST. TEMP 99.8; AIR TEMP LOWERED IN ROOM & 1 BLANKET REMOVED FROM PT; WILL RETEST. PT REQUESTS CORNFLAKES & PEACHES FOR BREAKFAST. CAFETERIA AWARE.
--- NOTE | 2020-01-16 08:45 | NUR ---
DR HICKS @BEDSIDE, ASSESSING PT, DISCUSSING TEST RESULTS & POC.
--- NOTE | 2020-01-16 09:19 | NUR ---
@BEDSIDE FOR AM MED PASS & [facility] DRAW. PT COMMUNICATES W/OUT DISTRESS. MOVES ALL EXTREMETIES. PT DENIES N/V AFTER BREAKFAST. DENIES NEEDS/CONCERNS AT THIS TIME. VSS. WILL CONTINUE TO MONITOR.
--- NOTE | 2020-01-16 09:46 | NUR ---
DIETARY @BEDSIDE FOR MEAL PREFERENCES.
--- NOTE | 2020-01-16 10:02 | NUR ---
CALLED, SEEMED UPSET, DEMANDING TO KNOW WHY PT COMES TO THE HOSPITAL, GETS BETTER, IS SENT HOME, THEN HE GETS SICK AGAIN AND HAS TO COME BACK TO THE HOSPITAL.
--- NOTE | 2020-01-16 10:15 | NUR ---
DISCUSSED DRESSING ORDERS WITH DR ARNETT.
--- NOTE | 2020-01-16 10:30 | NUR ---
DISCUSSED REJI JIMEENZ WITH PHARMACY, OK TO CONTINUE WITH ORDERED VANCO DOSAGE
--- NOTE | 2020-01-16 11:55 | NUR ---
pt sleeping in room, awakened to staff entering room. pt not ready for lunch yet, tray placed on bedside table. callbell in hand. will continue to monitor.
--- NOTE | 2020-01-16 12:07 | NUR ---
S: ADAMARIS GARCIA is a 74 M who presents with NEUTROPENIC FEVER. He has a history of CELLULITIS. All medications in patient's chart were reviewed. O: VS: BP 103/64, P92, RR 19,T 97.3 W 88 kg, HT 69IN, Scr= 0.5 P: Patient is on CEFEPIME,FLUCONAZOLE AND VANCOMYCIN. Vancomycin ordered for pharmacy to dose. Start Vancomycin 1 GRAM, IV Q8H. Vancomycin trough is drawn before the dose on 01/18/20 AT 0830. Vancomycin goal trough is between 15-20 mcg/ml. Pharmacy will follow and or advise on antibiotics use as needed. RODNEY NAIRD
--- NOTE | 2020-01-16 12:36 | NUR ---
@BEDSIDE. WOKE PT UP.
--- NOTE | 2020-01-16 12:46 | NUR ---
PT ON CALLBELL NEEDED ASSISTANCE IN PULLING UP IN BED. OTHER RN OFF UNIT FOR A MOMENT, WILL BOOST PT SOON.
--- NOTE | 2020-01-16 13:00 | NUR ---
pt request we wait for bath/dressing change until after his leaves.
--- NOTE | 2020-01-16 13:21 | NUR ---
DR HICKS @BEDSIDE WITH PT/. LAB @BEDSIDE FOR CROSS/MATCH. GREEN BAND APPLIED.
--- NOTE | 2020-01-16 14:20 | NUR ---
blood transfusing. pt/ educated on blood products & s/s of reaction. answered wifes questions. no other needs/concerns at this time. will continue to monitor.
--- NOTE | 2020-01-16 15:02 | NUR ---
PT REFUSED COMPLETE BATH, GIVEN PARTIAL BATH & LINEN CHANGE. CLEANED OF SMALL PASTY BROWN BM. DRESSING CHANGED PER DR ARNETT WRITTEN ORDER & BUTT PASTE PLACED ON BUTTOCKS PER DR WATERS WRITTEN ORDER.
--- NOTE | 2020-01-16 16:04 | NUR ---
BLOOD TRANSFUSION COMPLETED W/OUT REACTION. PT SLEEPING ON BACK, DOES NOT LIKE TO BE TURNED, ON AIR MATTRESS. TV ON. APPEARS PEACEFUL. CALLBELL ON CHEST. WILL CONTINUE TO MONITOR.
--- NOTE | 2020-01-16 17:45 | NUR ---
PT SITTING UP IN BED FOR DINNER. TALKING ON PERSONAL CELL PHONE. PT AWAKE/ALERT.
--- NOTE | 2020-01-16 19:15 | NUR ---
awakens easily. denies distress. clock and watch hands painter shows sinus rhythm pacs ivcd hr 90. rij tlc in place. ns infusing @ 100cchr. refused po intake @ present. elena cath in place. urine clear yellow. air mattress & fall precautions cont.
--- NOTE | 2020-01-16 22:00 | NUR ---
eyes closed. no distress. engine monitor shows sinus rhythm pacs ivcd hr 88.
[2020-01-17] VITALS (17 sets, daily range): BP systolic 85–135; BP diastolic 54–67
--- NOTE | 2020-01-17 00:01 | NUR ---
awake. no c/o voiced. elena draining well.
--- NOTE | 2020-01-17 02:00 | NUR ---
resting quietly. resps even & unlabored. no apparent distress.
--- NOTE | 2020-01-17 04:00 | NUR ---
eyes closed. no distress. manager monitoring shows sinus rhythm pacs ivcd hr 84.
--- NOTE | 2020-01-17 06:45 | NUR ---
REPORT RECVD FROM GEOFF EGAN @START OF SHIFT.
--- NOTE | 2020-01-17 07:09 | NUR ---
@BEDSIDE FOR LAB DRAW. PT AWAKE/ALERT x3, ASKING FOR BOOST IN BED. STATES HE SLEPT GOOD LAST NIGHT.
[2020-01-17 07:12] LABS: HEMATOCRIT 25.7 % (39.0-50.0); HEMOGLOBIN 8.7 g/dl (14.0-18.0); MEAN CELL VOLUME 90.8 fL CALC (80.0-100.0); MEAN CORPUSCULAR HGB 30.7 pG CALC (26.0-32.0); MEAN CORPUSCULAR HGB CONC 33.9 g/dL CAL (32.0-36.0); PLATELET COUNT 285 thou/uL (130-400); RED BLOOD COUNT 2.83 mill/uL (4.70-6.10); RED CELL DISTRI WIDTH 19.3 % (11.5-15.5)
[2020-01-17 07:16] LABS: IMMATURE GRANULOCYTES 16.4 % (0.0-5.0); MANUAL DIFFERENTIAL YES
--- NOTE | 2020-01-17 07:35 | NUR ---
PT SITTING UP IN BED, EATING BREAKFAST.
[2020-01-17 07:36] LABS: BAND 9 % (0-8); POIKILOCYTOSIS FEW; POLYCHROMASIA FEW
[2020-01-17 07:37] LABS: ANISOCYTOSIS FEW; TARGET CELLS FEW
[2020-01-17 07:42] LABS: INTERNATIONAL NORMALIZED RATIO 1.1 RATIO (0.7-1.3); PROTHROMBIN TIME 11.4 SECONDS (9.0-12.5)
[2020-01-17 07:48] LABS: ALKALINE PHOSPHATASE 64 u/l (38-126); ANION GAP 6 (6-22 (CALC)); BILIRUBIN, TOTAL 0.6 mg/dL (0.0-1.4); BUN 4 mg/dL (8-23); BUN/CREATININE RATIO 6 (12-20 (CALC)); C-REACTIVE PROTEIN 5.9 mg/dL (0-0.9); CARBON DIOXIDE 26 mmol/l (22-30); CHLORIDE 95 mmol/l (95-108); CREATININE 0.6 mg/dL (0.7-1.3); GFR > 60 ML/MIN (>=60 (CALC)); GFR FOR AFR.AMER. > 60 ML/MIN (>=60 (CALC)); POTASSIUM 3.5 mmol/l (3.5-5.1); SGOT/AST 19 u/l (19-48); SODIUM 124 mmol/l (137-146); TOTAL PROTEIN 4.7 g/dL (6.3-8.2)
--- NOTE | 2020-01-17 09:40 | NUR ---
PT REFUSES ALCIDES PRYOR BC THEY ARE TOO TIGHT. DOES NOT WANT A SHOT (LOVENOX). AGREED TO SCD'S. SCD'S PLACED ON PT BLE.
--- NOTE | 2020-01-17 10:42 | NUR ---
PT SLEEPING IN BED. AGREED TO BATH & WOUND DRESSING CHANGE AFTER BM. WILL CONTINUE TO MONITOR.
--- NOTE | 2020-01-17 11:46 | NUR ---
DR YOON @BEDSIDE WITH PT & . PT SITTING UP IN BED, EATING LUNCH.
--- NOTE | 2020-01-17 14:05 | NUR ---
PT REMAINS SLEEPING, TV ON, NO S/S OF DISTRESS, VSS, CALLBELL ON CHEST. WILL CONTINUE TO MONITOR.
--- NOTE | 2020-01-17 16:04 | NUR ---
ENTERED ROOM AFTER PT OVERHEARD TALKING ON PHONE. GAVE COMPLETE BED BATH, INCLUDING ZAZUETA CARE & HAIR WASH, AFTER LARGE PASTY BROWN BM. PT STATES HE WAS UNAWARE OF BM. COMPLETE LINEN CHANGE. RUBBED LOTION ON PTS BACK. EDUCATED PT ON TURNING ON SIDES, PT REFUSED STATING ITS NOT COMFORTABLE. PILLOW PLACED UNDER BILATERAL HEELS, SCD INTACK, HEEL PROTECTORS IN PLACE. WOUNDS x2 CARED FOR PER DR ARNETT ORDERS. CALLBELL ON CHEST. NO NEEDS/CONCERNS AT THIS TIME.
--- NOTE | 2020-01-17 18:45 | NUR ---
RECEIVED REPORT FROM IONA LORA.
--- NOTE | 2020-01-17 18:59 | NUR ---
PT LYING IN BED WITH EYES CLOSED. SR ON MONITOR SA02 95% CALL ALMARAZ IN REACH.
--- NOTE | 2020-01-17 20:00 | NUR ---
PT WITH EYES CLOSED, RESPONDS TO VERBAL STIMULI. ORIENTED X3. PEDAL EDEMA NOTED, HEEL PROTECTORS ON. NO NEEDS AT THIS TIME. CALL ALMARAZ IN REACH.
--- NOTE | 2020-01-17 22:00 | NUR ---
PT LYING ON BACK, EYES CLOSED. SR 88 ON MONITOR SA02 96% NO DISTRESS NOTED CALL ALMARAZ IN REACH.
[2020-01-18] VITALS (13 sets, daily range): BP systolic 85–125; BP diastolic 58–85
--- NOTE | 2020-01-18 | NUR ---
PT WITH EYES CLOSED, OPENED WHEN RN ENTERED ROOM. NO COMPLAINTS AT THIS TIME. NO NEEDS. SR 88 SA02 97% CALL ALMARAZ IN REACH.
--- NOTE | 2020-01-18 01:00 | NUR ---
PT WITH SOFT DARK BROWN STOOL. CLEANED PT AND CHANGED LINEN NEEDED. CALL ALMARAZ IN REACH.
--- NOTE | 2020-01-18 02:15 | NUR ---
PT OPENS EYES APON RN ENTERING ROOM. NO NEEDS AT THIS TIME. SR 86 SA02 96% CALL ALMARAZ IN REACH.
--- NOTE | 2020-01-18 04:00 | NUR ---
LABS DRAWN, PT AWAKENED WHEN RN ENTERED ROOM. NO NEEDS AT THIS TIME. CALL ALMARAZ IN REACH.
[2020-01-18 05:04] LABS: HEMATOCRIT 27.1 % (39.0-50.0); MEAN CELL VOLUME 91.2 fL CALC (80.0-100.0); MEAN CORPUSCULAR HGB 30.3 pG CALC (26.0-32.0); MEAN CORPUSCULAR HGB CONC 33.2 g/dL CAL (32.0-36.0); RED BLOOD COUNT 2.97 mill/uL (4.70-6.10); RED CELL DISTRI WIDTH 19.8 % (11.5-15.5)
[2020-01-18 05:16] LABS: ALKALINE PHOSPHATASE 70 u/l (38-126); ANION GAP 5 (6-22 (CALC)); BILIRUBIN, TOTAL 0.4 mg/dL (0.0-1.4); BUN 4 mg/dL (8-23); BUN/CREATININE RATIO 8 (12-20 (CALC)); CARBON DIOXIDE 28 mmol/l (22-30); CHLORIDE 94 mmol/l (95-108); CREATININE 0.6 mg/dL (0.7-1.3); GFR > 60 ML/MIN (>=60 (CALC)); GFR FOR AFR.AMER. > 60 ML/MIN (>=60 (CALC)); POTASSIUM 3.5 mmol/l (3.5-5.1); SGOT/AST 20 u/l (19-48); SODIUM 124 mmol/l (137-146); TOTAL PROTEIN 4.4 g/dL (6.3-8.2)
--- NOTE | 2020-01-18 06:00 | NUR ---
PT WITH EYES CLOSED, OPENED TO VERBAL STIMULI. NO DISTRESS NOTED. CALL ALMARAZ IN REACH.
--- NOTE | 2020-01-18 06:31 | NUR ---
PT RELATED NO NEW BM. NO NEEDS AT THIS TIME. CALL ALMARAZ IN REACH.
--- NOTE | 2020-01-18 06:44 | NUR ---
REPORT TO IONA LORA.
--- NOTE | 2020-01-18 07:46 | NUR ---
PT SITTING UP IN BED, EATING BREAKFAST. STATES HE'S READY TO GO HOME. ASSESSMENT COMPLETED. [facility]RA[facility].
--- NOTE | 2020-01-18 11:23 | NUR ---
PT SLEEPING IN BED, ON BACK. LUNCH TRAY HELD UNTIL PT AWAKENS. NO S/S OF DISTRESS. VSS. WILL CONTINUE TO MONITOR.
--- NOTE | 2020-01-18 11:30 | NUR ---
DR YOON @BEDSIDE FOR ASSESSMENT & DISCUSSION OF TEST RESULTS & POC. RBVO TO DOWNGRADE TO [facility] W/PLANS TO SEND HOME TOMORROW AFTER F/UP WITH ID & DR LIGHT. PT WANTS TO WAIT FOR HIS BEFORE HE EATS LUNCH.
--- NOTE | 2020-01-18 11:57 | NUR ---
CALLED [facility] FOR MISSING FRUIT ON PTS TRAY. PT STATES HIS IS BRINGING HIM KRAFT MAC & CHEESE FOR LUNCH WITH HIS FRESH FRUIT.
--- NOTE | 2020-01-18 12:22 | NUR ---
PT APPEARS HAPPY, @BEDSIDE, PT EATING LUNCH. NO NEEDS/CONCERNS AT THIS TIME. WILL CONTINUE TO MONITOR.
--- NOTE | 2020-01-18 13:50 | NUR ---
S: ADAMARIS GARCIA is a 74 M who presents with NEUTROPENIC FEVER. He has a history of CELLULITIS. All medications in patient's chart were reviewed. O: P: Patient is on CEFEPIME,FLUCONAZOLE AND VANCOMYCIN. Vancomycin ordered for pharmacy to dose. TROUGHIS 21 ON 01/18/20 Start Vancomycin 1 GRAM, IV Q12H. Vancomycin trough is drawn before the dose on 01/20/20 AT 0830. Vancomycin goal trough is between 15-20 mcg/ml. Pharmacy will follow and or advise on antibiotics use as needed. RODNEY NAIRD
--- NOTE | 2020-01-18 15:53 | NUR ---
PT C/O BEING DIRTY AFTER BM. PT CLEANED, COMPLETE BED BATH GIVEN, COMPLETE LINEN CHANGE, GOWN CHANGE. PT REFUSED TEETH BRUSHING. WOUNDS CLEANED, PHOTOGRAPHED, & REDRESSED PER DR ARNETT'S ORDERS. CALLBELL ON PTS CHEST. VSS. PT DENIES PAIN. SCD REPLACED. HEEL PROTECTORS ON. PILLOWS UNDER BLE TO OFFSET.
--- NOTE | 2020-01-18 16:34 | NUR ---
PT OVERHEARD MAKING LOTS OF CALLS ON PERSONAL CELL. NO DYPNEA WITH COMMUNICATION. WILL CONTINUE TO MONITOR.
--- NOTE | 2020-01-18 17:29 | NUR ---
RETURNS TO BEDSIDE. PTS DINNER TRAY ON BEDSIDE TABLE.
--- NOTE | 2020-01-18 18:14 | NUR ---
PT SLEEPING IN BED, LEFT FOR THE NIGHT. NO NEEDS/CONCERNS AT THIS TIME.
--- NOTE | 2020-01-18 18:55 | NUR ---
RECEIVED REPORT FROM IONA LORA.
--- NOTE | 2020-01-18 19:10 | NUR ---
PT WITH EYES CLOSED, OPEN WITH VERBAL STIMULI. NO DISTRESS NOTED. CALL ALMARAZ IN REACH.
--- NOTE | 2020-01-18 22:17 | NUR ---
REPORT TO MED/SURG, DARNELL TELLEZ.
--- NOTE | 2020-01-18 22:35 | NUR ---
PT TO RM 269 VIA BED WITHOUT INCIDENT.
--- NOTE | 2020-01-18 22:38 | NUR ---
PT TRANSFERED FROM ICU TO ROOM 269. PT ALERT AND ORIENTED. NO APPARENT DISTRESS NOTED. IV FLUIDS INFUSING TO RIGHT TRIPLE LUMEN IJ. AIR MATTRESS IN PLACE. ZAZUETA PATENT DRAINING TO GRAVITY. PT DENIES ANY PAIN OR DISCOMFORT. ORIENTED TO ROOM AND CALL LIGHT SYSTEM. DISCUSSED POC. PT VERBALIZED UNDERSTANDING. CALL LIGHT WITHIN REACH. WILL CONTINUE TO MONITOR.
--- NOTE | 2020-01-19 01:29 | NUR ---
PT RESTING IN BED WITH EYES CLOSED. NO APPARENT DISTRESS NOTED. ZAZUETA REMAINS PATENT. AIR MATTRESS FUNCTIONING PROPERLY. CALL LIGHT WITHIN REACH. WILL CONTINUE TO MONITOR.
[2020-01-19 04:46] VITALS: BP 85/55
[2020-01-19 05:39] VITALS: BP 91/57
--- NOTE | 2020-01-19 05:45 | NUR ---
PT RESTING IN BED WITH EYES CLOSED. WAKES EASILY. DENIES ANY PAIN OR DISCOMFORT. MARBIN REMAINS PATENT. CALL LIGHT WITHIN REACH. WILL CONTINUE TO MONITOR.
--- NOTE | 2020-01-19 07:45 | NUR ---
REPORT RECEIVED FROM GEOFF PATRICK. PT RESTING IN BED SEMI FOWLERS; ALERT AND ORIENTED. DENIES PAIN. RESPIRATIONS EVEN AND UNLABORED ON ROOM AIR. LUNGS ARE CLEAR; 3+ PITTING PEDAL EDEMA; HEEL PROTECTORS IN PLACE; BLANCHABLE REDDNESS TO HEELS. PLAN OF CARE REVIEWED. PT ENCOURAGED TO VERBALIZE CONCERNS. STATES UNDERSTANDING. SAFETY MEASURES IN PLACE. CALL LIGHT WITHIN REACH.
[2020-01-19 08:00] VITALS: BP 107/63
--- NOTE | 2020-01-19 10:30 | NUR ---
DRESSING TO ABDOMEN REPLACED; NYSTATIN POWDER AND HYDROCORDISONE CREAM APPLIED ALONG WITH ABD AND TAPE. AT BEDSIDE.
--- NOTE | 2020-01-19 11:05 | NUR ---
DR. HICKS AT BEDSIDE; NEW ORDER FOR PT.
--- NOTE | 2020-01-19 11:40 | NUR ---
PT AT BEDSIDE.
--- NOTE | 2020-01-19 12:26 | NUR ---
PT SITTING UP IN CHAIR FOR LUNCH; REQUESTING TO BE REPOSITIONED BACK INTO BED BY PT.
--- NOTE | 2020-01-19 13:42 | NUR ---
PT REPOSITIONED BACK INTO BED WITH 2 PERSON MAX ASSIST. NOW RESTING SEMI FOWLERS ON AIR MATRESS. ZAZUETA DRAINING CLEAR YELLOW URINE.
[2020-01-19 15:31] VITALS: BP 108/64
--- NOTE | 2020-01-19 16:00 | NUR ---
IV FLUIDS NOW INFUSING AT KVO; IV SITE APPEARS HEALTHY AND FLUSHES. AT BEDISDE FOR MOST OF THE DAY. PT ASSISTED WITH REPOSITIONING. NO REQUESTS OR CONCERNS AT THIS TIME. CALL LIGHT WITHIN REACH.
[2020-01-19 19:00] VITALS: BP 103/69
--- NOTE | 2020-01-19 21:10 | NUR ---
PT MEDICATED ORDERS PROVIDE. ASSESSMENT COMPLETED. AQUACELL PLACED TO COCCYX PER PT REQUEST. DISCUSSED REPOSITIONING, ADVISED PT THAT WE WILL ASSIST HIM IN REPOSITIONING THROUGHOUT THE NIGHT, VERBALIZED UNDERSTANDING. HEEL PROTECTORS ON AND FEET FLOATED WITH PILLOWS. BEDDING WAS WET WITH DRAINAGE FROM WOUND, BEDDING CHANGED OF SEROUS DRAINAGE MOD AMOUNT. ZAZUETA CATH DRAINING TO GRAVITY. CLOUDY YELLOW URINE.
[2020-01-20 03:25] VITALS: BP 108/66
--- NOTE | 2020-01-20 03:30 | NUR ---
IVF REPLENISHED AT THIS TIME. V/S ASSESSED, ZAZUETA CATHETER DRAINING CLEAR DARK YELLOW URINE TO GRAVITY, EMPTIED OF 2000CC AT THIS TIME. PT THANKED ME FOR "TREATING" HIS COCCYX EARLIER SO HE COULD BE MORE COMFORTABLE. ADDITIONAL BLANKET PROVIDED, DENIES ANY OTHER NEEDS AT THIS TIME. CALL LIGHT AT SIDE.
[2020-01-20 07:51] VITALS: BP 115/68
--- NOTE | 2020-01-20 08:11 | NUR ---
PT AWAKE, ALERT, ORIENTED X 3. PT SET UP FOR BREAKFAST, ENJOYS CEREALS. BLOOD DRAWN FROM TLC FOR AM LABS.
[2020-01-20 08:26] LABS: ANION GAP 7 (6-22 (CALC)); BUN 5 mg/dL (8-23); BUN/CREATININE RATIO 9 (12-20 (CALC)); CARBON DIOXIDE 28 mmol/l (22-30); CHLORIDE 93 mmol/l (95-108); CREATININE 0.6 mg/dL (0.7-1.3); GFR > 60 ML/MIN (>=60 (CALC)); GFR FOR AFR.AMER. > 60 ML/MIN (>=60 (CALC)); POTASSIUM 3.4 mmol/l (3.5-5.1); SODIUM 125 mmol/l (137-146)
--- NOTE | 2020-01-20 14:01 | NUR ---
BED MOBILITY (SUPINE TO SIT) X MAX 1. SITTING KNEE EXTENSION X 10 REPS X 1 SET ON EACH LE. STATIC SITTING BALANCE AND TOLERANCE >5 MINS WHILE PATIENT HOLDING ON BEDRAIL. PT ATTEMPTED TO STAND PATIENT, HOWEVER, PATIENT APPEARED WEAK AND BEGINNIG TO LATERAL TRUNK LEAN DUE TO FATIGUE. BED MOBILITY (SIT TO SUPINE) X MAX 1. AMPAC = 6
[2020-01-20 15:15] VITALS: BP 95/67
--- NOTE | 2020-01-20 16:26 | NUR ---
DRESSINGS CHANGED TO COCCYX AND ABDOMEN. COCCYX HAD BUTT PASTE APPLIED AND FOAM COVER. ABDOMEN WITH NYSTATIN POWDER AND HYDROCORTISONE CREAM, LOOKS BETTER THAN 2 DAYS AGO.
[2020-01-20 19:20] VITALS: BP 78/54
[2020-01-20 19:30] VITALS: BP 90/60
--- NOTE | 2020-01-20 19:32 | NUR ---
BEACH PATROL LIEUTENANT REPORTED LOW BP. PT IN BED TALKING ON CELLPHONE IN LOW FOWLERS. MANUAL BP OBTAINED 90/60. WILL CONTINUE TO MONITOR CLOSELY. PT C/O MULTIIPLE BP CHECKS AND DENIED ANY SYMPTOMS.
[2020-01-20 21:44] VITALS: BP 92/52
--- NOTE | 2020-01-20 22:56 | NUR ---
PT MEDICATED ORDERS PROVIDE. PT WAS SLEEPING VERY SOUNDLY, BUT AWOKE TO MY VOICE AND ASSISTED TAKING PILLS AND DRINKING WATER, REPOSITIONED IN BED. PT EDUCATED ON NEW ANTIBIOTIC THERAPY, CEFEPIME.
--- NOTE | 2020-01-21 00:15 | NUR ---
PT SLEEPING SOUNDLY, SONOROUS SOUNDS COMING FROM ROOM. NO S/O DISTRESS UPON OBSERVING PT.
[2020-01-21 03:03] VITALS: BP 86/57
--- NOTE | 2020-01-21 04:30 | NUR ---
BLOOD DRAWN FROM PORT FOR LABS. PT AWOKE TO MY VOICE, DENIES ANY OTHER NEEDS. ZAZUETA CATH DRAINING YELLOW URINE TO GRAVITY.
[2020-01-21 05:35] LABS: HEMATOCRIT 26.4 % (39.0-50.0); HEMOGLOBIN 8.8 g/dl (14.0-18.0); MEAN CELL VOLUME 92.3 fL CALC (80.0-100.0); MEAN CORPUSCULAR HGB 30.8 pG CALC (26.0-32.0); MEAN CORPUSCULAR HGB CONC 33.3 g/dL CAL (32.0-36.0); RED BLOOD COUNT 2.86 mill/uL (4.70-6.10); RED CELL DISTRI WIDTH 19.9 % (11.5-15.5)
[2020-01-21 05:44] LABS: ALKALINE PHOSPHATASE 68 u/l (38-126); ANION GAP 8 (6-22 (CALC)); BILIRUBIN, TOTAL 0.3 mg/dL (0.0-1.4); BUN 9 mg/dL (8-23); BUN/CREATININE RATIO 15 (12-20 (CALC)); CARBON DIOXIDE 27 mmol/l (22-30); CHLORIDE 94 mmol/l (95-108); CREATININE 0.6 mg/dL (0.7-1.3); GFR > 60 ML/MIN (>=60 (CALC)); GFR FOR AFR.AMER. > 60 ML/MIN (>=60 (CALC)); POTASSIUM 3.3 mmol/l (3.5-5.1); SGOT/AST 17 u/l (19-48); SODIUM 125 mmol/l (137-146); TOTAL PROTEIN 4.6 g/dL (6.3-8.2)
[2020-01-21 08:00] VITALS: BP 94/57
--- NOTE | 2020-01-21 10:30 | NUR ---
DRESSING TO ABDOMEN REPLACED. NO DRAINAGE NOTED. AT BEDSIDE.
--- NOTE | 2020-01-21 11:30 | NUR ---
PT AGITATED AND UPSET THAT HE HAS TO GO TO REHAB ON DISCHARGE. AT BEDSIDE AND TEARFUL. ENCOURAGED PT TO VERBALIZE CONCERNS AND OFFERED OTHER RESOURCES SUCH CASE MANGEMENT TO EXPLAIN BENEFITS OF REHAB SUCH STRENGTHENING AND SAFETY. PT VERBALIZES THAT HE WILL GO TO REHAB BECAUSE HE KNOWS IT IS NECESSARY.
--- NOTE | 2020-01-21 15:45 | NUR ---
COVID SWAB OBTAINED FROM RIGHT NARE AND SENT TO LAB. PHOTOS TAKEN OF STAGE II PRESSURE WOUND ON RIGHT BUTT AND PEG TUBE SITE AND PLACED IN CHART. ZINC OXIDE APPLIED TO BUTTOCK PER ORDERS. ZAZUETA DRAINING CLEAR YELLOW URINE IN LARGE AMOUNTS.
[2020-01-21 16:14] VITALS: BP 118/70
[2020-01-21 18:35] VITALS: BP 142/81
--- NOTE | 2020-01-21 19:17 | NUR ---
REPORT FROM SAAD LORA. PT RESTING IN BED. NO APPARENT DISTRESS NOTED. PT WAKES EASILY. DENIES ANY PAIN OR DISCOMFORT. ZAZUETA REMAINS PATENT. IV SITE APPEARS HEALTHY. AIR MATTRESS IN PLACE. DISCUSSED POC. PT VERBALIZED UNDERSTANDING. CALL LIGHT WITHIN REACH. WILL CONTINUE TO MONITOR.
--- NOTE | 2020-01-21 21:21 | NUR ---
PT MEDICATED ORDERED. PT DENIES ANY PAIN OR DISCOMFORT. NO CURRENT WANTS OR NEEDS. CALL LIGHT WITHIN REACH. WILL CONTINUE TO MONITOR.
--- NOTE | 2020-01-22 00:44 | NUR ---
NEW IV SITE STARTED #22 LH X3 ATTEMPTS. PT TOLERATED WELL. RIJ APPEARS TO BE LEAKING AND DOES NOT FLUSH EASILY, NO BLOOD RETURN NOTED. WILL LEAVE IN PLACE AT THIS TIME AND REPORT TO DAY SHIFT. KVO FLUIDS INFUSING TO LH WITHOUT DIFFICULTY. NO APPARENT DISTRESS NOTED. CALL LIGHT WITHIN REACH. WILL CONTINUE TO MONITOR.
--- NOTE | 2020-01-22 03:36 | NUR ---
PT RESTING IN BED WITH EYES CLOSED. NO APPARENT DISTRESS NOTED. IV SITE APPEARS HEALTHY. ZAZUETA REMAINS PATENT. AIR MATTRESS IN PLACE. CALL LIGHT WITHIN REACH. WILL CONTINUE TO MONITOR.
[2020-01-22 04:23] VITALS: BP 105/63
[2020-01-22 05:41] LABS: HEMATOCRIT 26.6 % (39.0-50.0); HEMOGLOBIN 8.8 g/dl (14.0-18.0); MEAN CELL VOLUME 92.7 fL CALC (80.0-100.0); MEAN CORPUSCULAR HGB 30.7 pG CALC (26.0-32.0); MEAN CORPUSCULAR HGB CONC 33.1 g/dL CAL (32.0-36.0); NEUT# 2.15 thou/uL (1.82-7.42); RED BLOOD COUNT 2.87 mill/uL (4.70-6.10); RED CELL DISTRI WIDTH 20.1 % (11.5-15.5)
[2020-01-22 06:02] LABS: IMMATURE GRANULOCYTES 12.1 % (0.0-5.0)
[2020-01-22 06:15] LABS: ALBUMIN 2.1 g/dL (3.2-5.0); ALKALINE PHOSPHATASE 68 u/l (38-126); ANION GAP 10 (6-22 (CALC)); BILIRUBIN, TOTAL 0.3 mg/dL (0.0-1.4); BUN 10 mg/dL (8-23); BUN/CREATININE RATIO 18 (12-20 (CALC)); CARBON DIOXIDE 24 mmol/l (22-30); CHLORIDE 97 mmol/l (95-108); CREATININE 0.6 mg/dL (0.7-1.3); GFR > 60 ML/MIN (>=60 (CALC)); GFR FOR AFR.AMER. > 60 ML/MIN (>=60 (CALC)); MAGNESIUM 1.5 mg/dL (1.6-2.3); POTASSIUM 3.6 mmol/l (3.5-5.1); SGOT/AST 17 u/l (19-48); SODIUM 127 mmol/l (137-146); TOTAL PROTEIN 4.8 g/dL (6.3-8.2)
--- NOTE | 2020-01-22 07:30 | NUR ---
REPORT RECEIVED FROM GEOFF PATRICK. PT RESTING ON AIRMATRESS SEMI PAL; ALERT AND ORIENTED. DENIES PAIN. RESPIRATIONS EVEN AND UNLABORD ON ROOM AIR. ZAZUETA DRAINING CLEAR YELLOW URINE; IV FLUIDS INFUSING WITHOUT DIFFICULTY INTO PERIPHERAL IV SITE; RIJ TLC LEAKING WITH NO BLOOD RETURN. EDEMA CONTINUES TO BILATERAL FEET; HEEL PROTECTORS IN PLACE; MILD REDNESS NOTED TO HEELS; ELEVATED ON PILLOWS. PLAN OF CARE REVIEWED. PT ENCOURAGED TO VERBALIZE CONCERNS. STAES UNDERSTANDING. SAFETY MEASURES IN PLACE. CALL LIGHT WITHIN REACH.
[2020-01-22 08:00] VITALS: BP 100/55
--- NOTE | 2020-01-22 09:15 | NUR ---
PEG TUBE DRESSING SITE REPLACED. PT INCONTINENT OF BOWEL; BED BATH GIVEN. AT BEDSIDE. MAG INFUSING AT THIS TIME.
--- NOTE | 2020-01-22 10:10 | NUR ---
DR. HICKS AT BEDSIDE.
--- NOTE | 2020-01-22 10:17 | NUR ---
NEW ORDERS FOR ID CONSULT AND REMOVAL OF ZAZUETA. COVID SWAB STILL PENDING.
--- NOTE | 2020-01-22 13:08 | NUR ---
PT AT BEDSIDE; PT REFUSED TO GET OUT OF BED; THERAPY PERFORMED IN BED EXERCISES. ALSO ATTEMPTED TO REMOVE ZAZUETA PER VERBAL ORDER FROM DR. HICKS AND PT ALSO DECLINED STATING THAT HE HAS TOO MUCH TROUBLE USING A URINAL. WILL REEVALUATE.
--- NOTE | 2020-01-22 13:59 | NUR ---
CENTRAL LINE RIJ TLC REMOVED. IV DUE TO BE REMOVED TODAY AND ALSO WITH LEAKING. UPON REMOVAL SOME REDNESS AND SWELLING NOTED ABOVE SITE; PT DENIES ANY PAIN OR TENDERNESS. WILL CONTINUE TO MONITOR.
--- NOTE | 2020-01-22 14:11 | NUR ---
Pt was alert upon therapist entering room. Performed bilateral ankle pumps with manual resistance 2x10. SAQ 2x10, SLR 1x10, quad setting with 5 second hold 2x10. Attempted to assist patient in transition from supine to sitting however patient stated he did not want to sit up on EOB at this time. Therapist then looked over patients RW to ensure safe function and RW was in good operating condition. ampac score=6
--- NOTE | 2020-01-22 14:40 | NUR ---
DR. CORRAL AT VIRTUAL BEDSIDE FOR ID CONSULT. INFOMRED OF REDNESS AT CENTRAL LINE INSERTION SITE; INFORMED OF PLANS TO DC ZAZUETA. PRESENT DURING CONSULTATION. CEFEPIME INFUSING.
[2020-01-22 15:00] VITALS: BP 100/60
--- NOTE | 2020-01-22 15:49 | NUR ---
ZAZUETA CATHETER REMOVED. INCONTINENT OF LARGE LOOSE BOWEL MOVEMENT. WILL MONITOR URINARY OUTPUT.
[2020-01-22] MEDS ORDERED: DOXYCYCL HYC100 MG PO (18:06)
[2020-01-22] MEDS ORDERED: KEFLEX500 MG PO (18:06)
[2020-01-22] MEDS ORDERED: SOD CHLORIDE1 G2 PO (18:06)
[2020-01-22] MEDS ORDERED: LASIX20 MG PO (18:06)
[2020-01-22 19:07] VITALS: BP 93/61
--- NOTE | 2020-01-22 19:15 | NUR ---
REPORT FROM SAAD OLRA. PT RESTING IN BED. WAKES EASILY. ALERT AND ORIENTED. NO APPARENT DISTRESS NOTED. AIR MATTRESS IN PLACE. MARBIN REMOVED DAY SHIFT REPORTS, NO VOID YET. PT DENIES ANY PAIN OR DISCOMFORT. DISCUSSED POC. PT VERBALIZED UNDERSTANDING. CALL LIGHT WITHIN REACH. WILL CONTINUE TO MONITOR.
--- NOTE | 2020-01-22 23:11 | NUR ---
PT INCONTINENT OF BLADDER AT THIS TIME, LARGE AMOUNT NOTED. COMPLETE BED BATH AND LINEN CHANGE PROVIDED. PT TOLERATED WELL. CALL LIGHT WITHIN REACH. WILL CONTINUE TO MONITOR.
--- NOTE | 2020-01-23 03:22 | NUR ---
PT RESTING IN BED WITH EYES CLOSED. NO APPARENT DISTRESS NOTED. KVO IVF INFUSING WITHOUT DIFFICULTY. CALL LIGHT WITHIN REACH. WILL CONTINUE TO MONITOR.
[2020-01-23 04:47] VITALS: BP 94/61
--- NOTE | 2020-01-23 07:05 | NUR ---
REPORT RECEIVED FROM GEOFF PATRICK. PT RESTING IN BED SEMI FOWLERS; ALERT AND ORIENTED. DENIES PAIN. RESPIRATIONS EVEN AND UNLABROED ON ROOM AIR. LUNGS ARE CLEAR AND DIMINISHED IN BASES. PEDAL EDEMA 2+; HEEL PROTECTORS AND SCD'S INTACT TO BLE. IV FLUIDS INFUSING WITHOUT DIFFICULTY; IV SITE TO LH APPEARS HEALTHY. PLAN OF CARE REVIEWED. PT ENCOURAGED TO VERBALIZE CONCERNS. STATES UNDERSTANDING. SAFETY MEASURES IN PLACE. CALL LIGHT WITHIN REACH.
[2020-01-23 07:48] VITALS: BP 112/78
--- NOTE | 2020-01-23 09:45 | NUR ---
PHYSICAL THERAPY AT BEDSIDE. PT STANDING AND TAKING STEPS WITH WALKER.
--- NOTE | 2020-01-23 10:45 | NUR ---
PEG TUBE SITE DRESSING CHANGED; PT INCONTINENET OF LARGE AMOUNT OF URINE; PARTIAL BED BATH GIVEN WITH COMPLETE LINEN CHANGE. ZINC OXIDE APPLIED TO COCCYX. PICTURES OF COCCYX AND PEG TUBE SITE TAKEN AND PLACED IN CHART.
--- NOTE | 2020-01-23 12:20 | NUR ---
IV site discontinued, cath intact. No edema , no redness, voices no discomfort.
--- NOTE | 2020-01-23 12:24 | NUR ---
Discharge instructions given. Patient verbalizes understanding of same. Discharged in stable condition via Wheelchair to [facility] with staff of [facility] transport. All belongings sent with pt.
--- NOTE | 2020-01-23 12:56 | NUR ---
Patient was in bed with at bedside upon entering. We then worked on bed mobility with patient supine to sitting on EOB with mod assist. Patient then required max assist to transfer from sit to static standing. He was able to stand for 3mins before sitting to rest. We then performed manually resisted ankle pumps 2x15, SAQ 2x10, quad setting 2x10, SLR 2x10, adduction squeeze with pillow 2x10. Pt was able to perform exercises however appeared weak and presents with quad muscle atrophy. ampac =6
--- NOTE | 2020-01-23 13:01 | NUR ---
REPORT CALLED TO ANA MARÍA AT [facility].
--- NOTE | 2020-01-24 07:16 | NUR ---
CALLED [facility] REGARDING ANALYTICAL CHEMISTRY TEACHER OF AIR MATTRESS. CALLED AT SPOKE TO SUSAN AND WAS GIVEN CONFIRMATION NUMBER [phone].
== END 2020-01-23 12:25 | DRG 862 ==
LOC: ED 10:54 → ED-I 15:31 → ED 15:40 → MS2 15:41 → ED-I 15:41 → ICU 15:41 → MS2 16:24 → ICU 01-14 17:30 → MS2 01-18 11:53
PROVIDERS: Internal Medicine; Internal Medicine Nephrology; Nurse Practitioner Family; Student in an Organized Health Care Education/Training Program; ADMIT Internal Medicine; ATTEND Internal Medicine
PROC: 02HV33Z Insertion of Infusion Device into Superior Vena Cava, Percutaneous Approach (ICD-10-PCS; 2020-01-15)
PROC: 30233N1 Transfusion of Nonautologous Red Blood Cells into Peripheral Vein, Percutaneous Approach (ICD-10-PCS; principal; 2020-01-16)
DX: T81.41XA Infection following a procedure, superficial incisional surgical site, initial encounter (principal); A41.9 Sepsis, unspecified organism; R65.21 Severe sepsis with septic shock; C15.9 Malignant neoplasm of esophagus, unspecified; E87.2 Acidosis; E22.2 Syndrome of inappropriate secretion of antidiuretic hormone; L03.311 Cellulitis of abdominal wall; I95.9 Hypotension, unspecified; D64.9 Anemia, unspecified; D70.9 Neutropenia, unspecified; L89.312 Pressure ulcer of right buttock, stage 2; E88.09 Other disorders of plasma-protein metabolism, not elsewhere classified; R53.81 Other malaise; R53.1 Weakness; B37.2 Candidiasis of skin and nail; Y83.3 Surgical operation with formation of external stoma as the cause of abnormal reaction of the patient, or of later complication, without mention of misadventure at the time of the procedure; Z96.89 Presence of other specified functional implants; Z79.899 Other long term (current) drug therapy; Z20.828 Contact with and (suspected) exposure to other viral communicable diseases
CPT/HCPCS: J0692; J3370; J3475; P9016; Q3014; S0164

== ENCOUNTER 2020-02-09 05:25 | Inpatient (IN) | payer MEDICARE ==
[~2020-02-09] VITALS: Ht 177.8 cm; Wt 83.1 kg
[~2020-02-09 05:25] MED LIST changes: +DOXYCYCL HYC100 MG PO; +KEFLEX500 MG PO; +LASIX20 MG PO; +ONDANSETRON ODT8 MG PO; +PROCHLORPERAZINE RE; +SOD CHLORIDE1 G2 PO
[2020-02-09] MEDS ORDERED: CEPHALEXIN500 MG PO (05:45)
[2020-02-09] MEDS ORDERED: CALCIUM CIT PO (05:48)
[2020-02-09] MEDS ORDERED: FERROUS SULF325 M2 PO (05:49)
[2020-02-09] MEDS ORDERED: MAGNESIUM OXID400 M1 PO (05:49)
[2020-02-09] MEDS ORDERED: SENNA8.6 MG PO (05:50)
[2020-02-09 06:32] LABS: HEMATOCRIT 26.5 % (39.0-50.0); HEMOGLOBIN 8.5 g/dl (14.0-18.0); MEAN CELL VOLUME 92.3 fL CALC (80.0-100.0); MEAN CORPUSCULAR HGB 29.6 pG CALC (26.0-32.0); MEAN CORPUSCULAR HGB CONC 32.1 g/dL CAL (32.0-36.0); NEUT# 10.82 thou/uL (1.82-7.42); RED BLOOD COUNT 2.87 mill/uL (4.70-6.10); RED CELL DISTRI WIDTH 18.6 % (11.5-15.5)
[2020-02-09 07:14] LABS: ALKALINE PHOSPHATASE 91 u/l (38-126); AMYLASE 31 u/l (30-110); BILIRUBIN, TOTAL 0.4 mg/dL (0.0-1.4); BUN 24 mg/dL (8-23); BUN/CREATININE RATIO 27 (12-20 (CALC)); CARBON DIOXIDE 21 mmol/l (22-30); CHLORIDE 89 mmol/l (95-108); CREATININE 0.9 mg/dL (0.7-1.3); GFR > 60 ML/MIN (>=60 (CALC)); GFR FOR AFR.AMER. > 60 ML/MIN (>=60 (CALC)); LIPASE 101 u/l (23-300); SODIUM 123 mmol/l (137-146)
[2020-02-09 07:26] LABS: ANION GAP 18 (6-22 (CALC)); MYOGLOBIN 52 ng/mL (0 - 121); POTASSIUM 4.7 mmol/l (3.5-5.1); SGOT/AST 31 u/l (19-48)
[2020-02-09 08:23] LABS: URINE BILIRUBIN - DIPSTICK NEGATIVE (NEGATIVE); URINE BLOOD DIPSTICK NEGATIVE (NEGATIVE); URINE COLOR YELLOW; URINE GLUCOSE - DIPSTICK NEGATIVE (NEGATIVE); URINE KETONE 15 mg/dL (NEGATIVE); URINE LEUK ESTERASE NEGATIVE (NEGATIVE); URINE NITRITE - DIPSTICK NEGATIVE (Negative); URINE PROTEIN - DIPSTICK NEGATIVE (NEG-TRACE); URINE SPECIFIC GRAVITY 1.015; URINE UROBILINOGEN - DIPSTICK 0.2 E.U./dL (0.2)
[2020-02-09 10:30] VITALS: BP 102/55
[2020-02-09 15:02] VITALS: BP 103/53
[2020-02-09 18:55] VITALS: BP 92/54
[2020-02-10] VITALS (13 sets, daily range): BP systolic 83–112; BP diastolic 51–63
[2020-02-10 05:51] LABS: MEAN CELL VOLUME 95.7 fL CALC (80.0-100.0); MEAN CORPUSCULAR HGB 30.5 pG CALC (26.0-32.0); MEAN CORPUSCULAR HGB CONC 31.8 g/dL CAL (32.0-36.0); RED BLOOD COUNT 1.87 mill/uL (4.70-6.10); RED CELL DISTRI WIDTH 19.2 % (11.5-15.5)
[2020-02-10 06:19] LABS: ALKALINE PHOSPHATASE 60 u/l (38-126); ANION GAP 8 (6-22 (CALC)); BUN 17 mg/dL (8-23); BUN/CREATININE RATIO 25 (12-20 (CALC)); CARBON DIOXIDE 22 mmol/l (22-30); CHLORIDE 99 mmol/l (95-108); CREATININE 0.7 mg/dL (0.7-1.3); GFR > 60 ML/MIN (>=60 (CALC)); GFR FOR AFR.AMER. > 60 ML/MIN (>=60 (CALC)); POTASSIUM 4.2 mmol/l (3.5-5.1); SGOT/AST 26 u/l (19-48); SODIUM 125 mmol/l (137-146)
[2020-02-10 06:20] LABS: BILIRUBIN, TOTAL 0.2 mg/dL (0.0-1.4); TOTAL PROTEIN 4.5 g/dL (6.3-8.2)
[2020-02-10 06:56] LABS: HEMOGLOBIN 5.7 g/dl (14.0-18.0)
[2020-02-10 06:57] LABS: HEMATOCRIT 17.9 % (39.0-50.0)
[2020-02-10 08:38] LABS: HEMATOCRIT 18.4 % (39.0-50.0); HEMOGLOBIN 5.8 g/dl (14.0-18.0)
[2020-02-11 03:52] VITALS: BP 106/69
[2020-02-11 05:06] LABS: MEAN CORPUSCULAR HGB 30.6 pG CALC (26.0-32.0); MEAN CORPUSCULAR HGB CONC 32.6 g/dL CAL (32.0-36.0); RED BLOOD COUNT 2.81 mill/uL (4.70-6.10); RED CELL DISTRI WIDTH 17.9 % (11.5-15.5)
[2020-02-11 05:32] LABS: ALBUMIN 2.2 g/dL (3.2-5.0); ALKALINE PHOSPHATASE 72 u/l (38-126); BUN 10 mg/dL (8-23); BUN/CREATININE RATIO 16 (12-20 (CALC)); CARBON DIOXIDE 22 mmol/l (22-30); CHLORIDE 99 mmol/l (95-108); CREATININE 0.6 mg/dL (0.7-1.3); GFR > 60 ML/MIN (>=60 (CALC)); GFR FOR AFR.AMER. > 60 ML/MIN (>=60 (CALC)); SODIUM 126 mmol/l (137-146); TOTAL PROTEIN 4.8 g/dL (6.3-8.2)
[2020-02-11 05:33] LABS: ANION GAP 8 (6-22 (CALC)); BILIRUBIN, TOTAL 0.3 mg/dL (0.0-1.4); POTASSIUM 3.3 mmol/l (3.5-5.1); SGOT/AST 53 u/l (19-48)
[2020-02-11 05:39] LABS: HEMATOCRIT 26.4 % (39.0-50.0); HEMOGLOBIN 8.6 g/dl (14.0-18.0)
[2020-02-11 08:42] VITALS: BP 95/56
[2020-02-11 11:22] VITALS: BP 98/58
[2020-02-11 15:22] VITALS: BP 99/60
[2020-02-11 19:00] VITALS: BP 102/52
[2020-02-12 03:20] VITALS: BP 110/63
[2020-02-12 05:27] LABS: HEMATOCRIT 26.2 % (39.0-50.0); HEMOGLOBIN 8.3 g/dl (14.0-18.0); MEAN CELL VOLUME 93.9 fL CALC (80.0-100.0); MEAN CORPUSCULAR HGB 29.7 pG CALC (26.0-32.0); MEAN CORPUSCULAR HGB CONC 31.7 g/dL CAL (32.0-36.0); RED BLOOD COUNT 2.79 mill/uL (4.70-6.10); RED CELL DISTRI WIDTH 18.1 % (11.5-15.5)
[2020-02-12 05:56] LABS: ANION GAP 7 (6-22 (CALC)); BUN 8 mg/dL (8-23); BUN/CREATININE RATIO 14 (12-20 (CALC)); CARBON DIOXIDE 23 mmol/l (22-30); CHLORIDE 100 mmol/l (95-108); CREATININE 0.6 mg/dL (0.7-1.3); GFR > 60 ML/MIN (>=60 (CALC)); GFR FOR AFR.AMER. > 60 ML/MIN (>=60 (CALC)); POTASSIUM 3.5 mmol/l (3.5-5.1); SODIUM 126 mmol/l (137-146)
[2020-02-12 09:00] VITALS: BP 105/66
[2020-02-12 10:56] VITALS: BP 105/68
[2020-02-12 17:41] VITALS: BP 84/56
[2020-02-12 19:20] VITALS: BP 101/61
[2020-02-12 23:30] VITALS: BP 76/40
[2020-02-13] VITALS (7 sets, daily range): BP systolic 72–169; BP diastolic 40–68
[2020-02-13 09:22] LABS: HEMATOCRIT 27.7 % (39.0-50.0); HEMOGLOBIN 8.9 g/dl (14.0-18.0); MEAN CELL VOLUME 95.8 fL CALC (80.0-100.0); MEAN CORPUSCULAR HGB 30.8 pG CALC (26.0-32.0); MEAN CORPUSCULAR HGB CONC 32.1 g/dL CAL (32.0-36.0); RED BLOOD COUNT 2.89 mill/uL (4.70-6.10); RED CELL DISTRI WIDTH 18.5 % (11.5-15.5)
[2020-02-13 09:37] LABS: ANION GAP 9 (6-22 (CALC)); BUN 6 mg/dL (8-23); BUN/CREATININE RATIO 12 (12-20 (CALC)); CARBON DIOXIDE 20 mmol/l (22-30); CHLORIDE 99 mmol/l (95-108); CREATININE 0.5 mg/dL (0.7-1.3); GFR > 60 ML/MIN (>=60 (CALC)); GFR FOR AFR.AMER. > 60 ML/MIN (>=60 (CALC)); POTASSIUM 4.1 mmol/l (3.5-5.1); SODIUM 124 mmol/l (137-146)
[2020-02-14] VITALS (7 sets, daily range): BP systolic 80–115; BP diastolic 48–68
[2020-02-15 04:20] VITALS: BP 92/57
[2020-02-15 07:38] VITALS: BP 90/50
[2020-02-15 11:24] VITALS: BP 96/55
[2020-02-15 11:51] LABS: HEMATOCRIT 23.8 % (39.0-50.0); HEMOGLOBIN 7.8 g/dl (14.0-18.0); MEAN CELL VOLUME 93.3 fL CALC (80.0-100.0); MEAN CORPUSCULAR HGB 30.6 pG CALC (26.0-32.0); MEAN CORPUSCULAR HGB CONC 32.8 g/dL CAL (32.0-36.0); RED BLOOD COUNT 2.55 mill/uL (4.70-6.10); RED CELL DISTRI WIDTH 17.7 % (11.5-15.5)
[2020-02-15 12:09] LABS: ANION GAP 6 (6-22 (CALC)); BUN 9 mg/dL (8-23); BUN/CREATININE RATIO 17 (12-20 (CALC)); CARBON DIOXIDE 24 mmol/l (22-30); CHLORIDE 96 mmol/l (95-108); CREATININE 0.5 mg/dL (0.7-1.3); GFR > 60 ML/MIN (>=60 (CALC)); GFR FOR AFR.AMER. > 60 ML/MIN (>=60 (CALC)); POTASSIUM 3.8 mmol/l (3.5-5.1); SODIUM 122 mmol/l (137-146)
[2020-02-15 15:47] VITALS: BP 104/62
[2020-02-15 19:24] VITALS: BP 78/42
[2020-02-15 19:59] LABS: ANION GAP 7 (6-22 (CALC)); BUN 9 mg/dL (8-23); BUN/CREATININE RATIO 15 (12-20 (CALC)); CARBON DIOXIDE 24 mmol/l (22-30); CHLORIDE 96 mmol/l (95-108); CREATININE 0.6 mg/dL (0.7-1.3); GFR > 60 ML/MIN (>=60 (CALC)); GFR FOR AFR.AMER. > 60 ML/MIN (>=60 (CALC)); POTASSIUM 3.9 mmol/l (3.5-5.1); SODIUM 122 mmol/l (137-146)
[2020-02-15 20:05] VITALS: BP 92/50
[2020-02-16] VITALS (8 sets, daily range): BP systolic 88–97; BP diastolic 50–63
[2020-02-16 05:08] LABS: HEMATOCRIT 24.4 % (39.0-50.0); HEMOGLOBIN 7.7 g/dl (14.0-18.0); IMMATURE GRANULOCYTES 1.3 % (0.0-5.0); MEAN CELL VOLUME 93.5 fL CALC (80.0-100.0); MEAN CORPUSCULAR HGB 29.5 pG CALC (26.0-32.0); MEAN CORPUSCULAR HGB CONC 31.6 g/dL CAL (32.0-36.0); NEUT# 1.54 thou/uL (1.82-7.42); RED BLOOD COUNT 2.61 mill/uL (4.70-6.10); RED CELL DISTRI WIDTH 17.8 % (11.5-15.5)
[2020-02-16 05:15] LABS: ANION GAP 6 (6-22 (CALC)); BUN 8 mg/dL (8-23); BUN/CREATININE RATIO 14 (12-20 (CALC)); CARBON DIOXIDE 25 mmol/l (22-30); CHLORIDE 96 mmol/l (95-108); CREATININE 0.6 mg/dL (0.7-1.3); GFR > 60 ML/MIN (>=60 (CALC)); GFR FOR AFR.AMER. > 60 ML/MIN (>=60 (CALC)); POTASSIUM 3.9 mmol/l (3.5-5.1); SODIUM 123 mmol/l (137-146)
[2020-02-16 20:22] LABS: ANION GAP 8 (6-22 (CALC)); BUN 18 mg/dL (8-23); BUN/CREATININE RATIO 32 (12-20 (CALC)); CARBON DIOXIDE 24 mmol/l (22-30); CHLORIDE 94 mmol/l (95-108); CREATININE 0.6 mg/dL (0.7-1.3); GFR > 60 ML/MIN (>=60 (CALC)); GFR FOR AFR.AMER. > 60 ML/MIN (>=60 (CALC)); POTASSIUM 4.2 mmol/l (3.5-5.1); SODIUM 122 mmol/l (137-146)
[2020-02-17] VITALS (12 sets, daily range): BP systolic 99–134; BP diastolic 54–78
[2020-02-17 05:00] LABS: HEMATOCRIT 25.2 % (39.0-50.0); HEMOGLOBIN 8.1 g/dl (14.0-18.0); MEAN CELL VOLUME 93.3 fL CALC (80.0-100.0); MEAN CORPUSCULAR HGB CONC 32.1 g/dL CAL (32.0-36.0); RED BLOOD COUNT 2.7 mill/uL (4.70-6.10); RED CELL DISTRI WIDTH 17.2 % (11.5-15.5)
[2020-02-17 05:23] LABS: BUN 20 mg/dL (8-23); CARBON DIOXIDE 26 mmol/l (22-30); CHLORIDE 94 mmol/l (95-108); CREATININE 0.5 mg/dL (0.7-1.3); GFR > 60 ML/MIN (>=60 (CALC)); GFR FOR AFR.AMER. > 60 ML/MIN (>=60 (CALC)); POTASSIUM 4.2 mmol/l (3.5-5.1); SODIUM 123 mmol/l (137-146)
[2020-02-17 05:32] LABS: ALKALINE PHOSPHATASE 75 u/l (38-126); ANION GAP 7 (6-22 (CALC)); BILIRUBIN, TOTAL 0.2 mg/dL (0.0-1.4); BUN 20 mg/dL (8-23); BUN/CREATININE RATIO 39 (12-20 (CALC)); CARBON DIOXIDE 26 mmol/l (22-30); CHLORIDE 94 mmol/l (95-108); CREATININE 0.5 mg/dL (0.7-1.3); GFR > 60 ML/MIN (>=60 (CALC)); GFR FOR AFR.AMER. > 60 ML/MIN (>=60 (CALC)); POTASSIUM 4.1 mmol/l (3.5-5.1); SGOT/AST 24 u/l (19-48); SODIUM 123 mmol/l (137-146); TOTAL PROTEIN 4.3 g/dL (6.3-8.2)
[2020-02-18] VITALS (10 sets, daily range): BP systolic 96–117; BP diastolic 49–77
[2020-02-18 08:07] LABS: ALBUMIN 2.2 g/dL (3.2-5.0); BUN 13 mg/dL (8-23); CARBON DIOXIDE 25 mmol/l (22-30); CHLORIDE 96 mmol/l (95-108); CREATININE 0.6 mg/dL (0.7-1.3); GFR > 60 ML/MIN (>=60 (CALC)); GFR FOR AFR.AMER. > 60 ML/MIN (>=60 (CALC)); POTASSIUM 4.3 mmol/l (3.5-5.1); SODIUM 125 mmol/l (137-146)
[2020-02-19] VITALS: BP 96/53
[2020-02-19 04:00] VITALS: BP 98/56
[2020-02-19 05:05] LABS: HEMATOCRIT 25.3 % (39.0-50.0); HEMOGLOBIN 7.9 g/dl (14.0-18.0); MEAN CELL VOLUME 93.7 fL CALC (80.0-100.0); MEAN CORPUSCULAR HGB 29.3 pG CALC (26.0-32.0); MEAN CORPUSCULAR HGB CONC 31.2 g/dL CAL (32.0-36.0); RED BLOOD COUNT 2.7 mill/uL (4.70-6.10); RED CELL DISTRI WIDTH 17.4 % (11.5-15.5)
[2020-02-19 05:23] LABS: ALBUMIN 1.9 g/dL (3.2-5.0); ALKALINE PHOSPHATASE 72 u/l (38-126); ANION GAP 6 (6-22 (CALC)); BUN 14 mg/dL (8-23); BUN/CREATININE RATIO 27 (12-20 (CALC)); CARBON DIOXIDE 24 mmol/l (22-30); CHLORIDE 99 mmol/l (95-108); CREATININE 0.5 mg/dL (0.7-1.3); GFR > 60 ML/MIN (>=60 (CALC)); GFR FOR AFR.AMER. > 60 ML/MIN (>=60 (CALC)); POTASSIUM 3.8 mmol/l (3.5-5.1); SGOT/AST 18 u/l (19-48); SODIUM 125 mmol/l (137-146); TOTAL PROTEIN 4.2 g/dL (6.3-8.2)
[2020-02-19 05:26] LABS: BILIRUBIN, TOTAL 0.1 mg/dL (0.0-1.4)
[2020-02-19 08:07] VITALS: BP 100/57
[2020-02-19 08:15] VITALS: BP 100/57
[2020-02-19 11:00] VITALS: BP 89/58
[2020-02-19] MEDS ORDERED: MIDODRINE HCL5 MG PO (12:38)
[2020-02-19] MEDS ORDERED: SOD CHLORIDE1 G2 PO (12:39)
== END 2020-02-19 13:40 | disposition home health service (06) | DRG 644 ==
LOC: ED 05:25 → ED-I 08:20 → ED 08:33 → MS2 08:34 → ED-I 08:34 → MS2 09:15
PROVIDERS: Family Medicine; Internal Medicine; Internal Medicine Nephrology; Nurse Practitioner Family; ADMIT Internal Medicine; ATTEND Internal Medicine
PROC: 30233N1 Transfusion of Nonautologous Red Blood Cells into Peripheral Vein, Percutaneous Approach (ICD-10-PCS; principal; 2020-02-10)
PROC: 30233N1 Transfusion of Nonautologous Red Blood Cells into Peripheral Vein, Percutaneous Approach (ICD-10-PCS; 2020-02-10)
PROC: 0DJ08ZZ Inspection of Upper Intestinal Tract, Via Natural or Artificial Opening Endoscopic (ICD-10-PCS; 2020-02-17)
PROC: 0DJD8ZZ Inspection of Lower Intestinal Tract, Via Natural or Artificial Opening Endoscopic (ICD-10-PCS; 2020-02-17)
PROC: 0DJD8ZZ Inspection of Lower Intestinal Tract, Via Natural or Artificial Opening Endoscopic (ICD-10-PCS; 2020-02-18)
DX: E22.2 Syndrome of inappropriate secretion of antidiuretic hormone (principal); D62 Acute posthemorrhagic anemia; K92.2 Gastrointestinal hemorrhage, unspecified; C15.9 Malignant neoplasm of esophagus, unspecified; K56.41 Fecal impaction; E78.5 Hyperlipidemia, unspecified; E11.9 Type 2 diabetes mellitus without complications; I95.9 Hypotension, unspecified; R53.81 Other malaise; E83.51 Hypocalcemia; E87.70 Fluid overload, unspecified; L89.302 Pressure ulcer of unspecified buttock, stage 2; Z96.89 Presence of other specified functional implants; Z20.828 Contact with and (suspected) exposure to other viral communicable diseases
CPT/HCPCS: P9016; S0164

== ENCOUNTER 2020-02-22 10:10 | Inpatient (IN) | payer MEDICARE ==
[~2020-02-22] VITALS: Ht 177.8 cm; Wt 102.2 kg
[~2020-02-22 10:10] MED LIST changes: +CALCIUM CIT PO; +CEPHALEXIN500 MG PO; +FERROUS SULF325 M2 PO; +MAGNESIUM OXID400 M1 PO; +SENNA8.6 MG PO
--- NOTE | 2020-02-22 10:12 | NUR ---
PT TO ROOM VIA WHEELCHAIR.
--- NOTE | 2020-02-22 10:40 | NUR ---
RIANA ASSIST WITH STAND AND TRANSFER, P[ER PT HAS CANCER AND LOW SODIUM ETC.. HE WAS RELEASED 3 DAYS AGO FROM HERE AFTER A 10 DAYS STAY AND HE IS TO WEAK FOR HER TO HANDLE ALONE, SO SHE BROUGHT HIM BACK IN.
[2020-02-22 11:12] LABS: URINE BILIRUBIN - DIPSTICK NEGATIVE (NEGATIVE); URINE BLOOD DIPSTICK NEGATIVE (NEGATIVE); URINE COLOR YELLOW; URINE GLUCOSE - DIPSTICK NEGATIVE (NEGATIVE); URINE KETONE NEGATIVE (NEGATIVE); URINE LEUK ESTERASE NEGATIVE (NEGATIVE); URINE NITRITE - DIPSTICK NEGATIVE (Negative); URINE PROTEIN - DIPSTICK NEGATIVE (NEG-TRACE); URINE UROBILINOGEN - DIPSTICK 0.2 E.U./dL (0.2)
--- NOTE | 2020-02-22 11:57 | NUR ---
TOLERATED RADIOLOGY EXAMS WIHTOUT INCIDENT, REMAINS AT BEDSIDE, WILL CONTINUE TO MONITOR.
[2020-02-22 12:09] LABS: MEAN CELL VOLUME 93.9 fL CALC (80.0-100.0); MEAN CORPUSCULAR HGB 29.8 pG CALC (26.0-32.0); MEAN CORPUSCULAR HGB CONC 31.7 g/dL CAL (32.0-36.0); NEUT# 2.93 thou/uL (1.82-7.42); RED BLOOD COUNT 3.63 mill/uL (4.70-6.10); RED CELL DISTRI WIDTH 17.6 % (11.5-15.5)
[2020-02-22 12:27] LABS: ALKALINE PHOSPHATASE 93 u/l (38-126); BUN 7 mg/dL (8-23); BUN/CREATININE RATIO 12 (12-20 (CALC)); CARBON DIOXIDE 24 mmol/l (22-30); CHLORIDE 94 mmol/l (95-108); CREATININE 0.6 mg/dL (0.7-1.3); GFR > 60 ML/MIN (>=60 (CALC)); GFR FOR AFR.AMER. > 60 ML/MIN (>=60 (CALC)); LIPASE 42 u/l (23-300); SGOT/AST 24 u/l (19-48); SODIUM 121 mmol/l (137-146)
[2020-02-22 12:28] LABS: HEMATOCRIT 34.1 % (39.0-50.0); HEMOGLOBIN 10.8 g/dl (14.0-18.0)
[2020-02-22 12:31] LABS: ALBUMIN 2.4 g/dL (3.2-5.0); AMYLASE < 30 u/l (30-110); ANION GAP 8 (6-22 (CALC)); BILIRUBIN, TOTAL 0.5 mg/dL (0.0-1.4); POTASSIUM 4.8 mmol/l (3.5-5.1); TOTAL PROTEIN 5.5 g/dL (6.3-8.2)
[2020-02-22 12:36] LABS: MYOGLOBIN 35 ng/mL (0 - 121)
--- NOTE | 2020-02-22 13:11 | NUR ---
O2 SAT NOTED TO BE 89-90 WITH GOOD WAVEFORM AND NO APPARENT DISTRESS, O2 PLACED AT 2L VIA NC WITH GOOD IMPROVEMENT SATS INCREASED TO 94-95% WITHIN 60 SECONDS.
--- NOTE | 2020-02-22 14:21 | NUR ---
REPORT CALLED TO ROBERT ON MED SURG ROOM 262 ASSIGNED
--- NOTE | 2020-02-22 14:35 | NUR ---
PT ARRIVED FROM ER VIA STRETCHER WITH STAFF. 2 PERSON ASSIST TO THE BED. INCONTINENT OF BLADDER. IV SITE IS FREE FROM REDNESS OR EDEMA. CONTINUE TO OSBERVE AND MONITOR.
--- NOTE | 2020-02-22 14:45 | NUR ---
PT TRANSPORTED TO MED SURG ROOM 262 VIA STRETCHER WITH TELE ON ALL BELONGINGS WITH PATIENT AND AT SIDE.
--- NOTE | 2020-02-22 14:50 | NUR ---
ASSESSMENT IS COMPLTED: SPOUSE IN THE ROOM. IV SITE IS FREE FROM REDNESS OR EDEMA. HR IS REG,PULSES ARE STRONG X4, ABD IS SOFT WITH ACTIVE BS. BREATH SOUNDS ARE CLEAR,BILATERALLY. O2 @ 2LITERS WITH NC. TELE MONITOR IN PLACE. CONTINUE TO OSEBRVE AND MONITOR.
[2020-02-22 15:00] VITALS: BP 136/81
--- NOTE | 2020-02-22 17:22 | NUR ---
PT HAS BEEN RELAXING IN BED WITH NO DISTRESS NOTED.
--- NOTE | 2020-02-22 18:24 | NUR ---
PT HAS BEEN RESTING IN BED WITH NO DISTRESS NOTED.
[2020-02-22 18:55] VITALS: BP 92/66
--- NOTE | 2020-02-22 19:00 | NUR ---
REPORT RECEIVED FROM Ambrosio OLMEDO LPN, CARE OF PT ASSUMED AT THIS TIME.
--- NOTE | 2020-02-22 20:30 | NUR ---
PT LAYING IN BED RESTING, NO APPARENT DISTRESS, RESPIRATIONS REG & UNLABORED. PHYSICAL ASSESMENT COMPLETE. PT CURRENTLY DENIES PAIN OR DISCOMFORT. SCHEDULED MEDS ADMINISTERED, SEE E-MAR. PT DENIES NEEDS AT THIS TIME. PLAN OF CARE REVIEWED, PT DENIES QUESTIONS, VERBALIZES UNDERSTANDING. ITEMS WITHIN REACH BED LOCKED IN LOW POSITION W/ BEDRAILS UP X2. CALL ALMARAZ WITHIN REACH, AGREES TO CALL PRN.
[2020-02-22 23:40] VITALS: BP 109/60
--- NOTE | 2020-02-23 00:59 | NUR ---
PT APPEARS TO BE SLEEPING COMFORTABLY, NO APPARENT DISTRESS, RESPIRATIONS REGULAR AND UNLABORED. ITEMS REMAIN WITHIN REACH, BED REMAINS LOCKED IN LOW POSITION W/ BEDRAILS UP X2. CALL ALMARAZ REMAINS WITHIN REACH.
[2020-02-23 04:06] VITALS: BP 91/55
[2020-02-23 05:17] LABS: IMMATURE GRANULOCYTES 0.8 % (0.0-5.0); MEAN CELL VOLUME 92.2 fL CALC (80.0-100.0); MEAN CORPUSCULAR HGB 29.7 pG CALC (26.0-32.0); MEAN CORPUSCULAR HGB CONC 32.2 g/dL CAL (32.0-36.0); NEUT# 3.85 thou/uL (1.82-7.42); RED BLOOD COUNT 2.93 mill/uL (4.70-6.10); RED CELL DISTRI WIDTH 17.2 % (11.5-15.5)
[2020-02-23 05:19] LABS: HEMOGLOBIN 8.7 g/dl (14.0-18.0)
[2020-02-23 05:35] LABS: ANION GAP 5 (6-22 (CALC)); BUN 7 mg/dL (8-23); BUN/CREATININE RATIO 16 (12-20 (CALC)); CARBON DIOXIDE 23 mmol/l (22-30); CHLORIDE 97 mmol/l (95-108); CREATININE 0.4 mg/dL (0.7-1.3); GFR > 60 ML/MIN (>=60 (CALC)); GFR FOR AFR.AMER. > 60 ML/MIN (>=60 (CALC)); POTASSIUM 4.2 mmol/l (3.5-5.1); SODIUM 121 mmol/l (137-146)
--- NOTE | 2020-02-23 05:42 | NUR ---
X2 UNSUCESSFUL ATTEMPTS AT ESTABLISHING IV ACCESS. WILL ENDORSE TO ONCOMING NURSE.
--- NOTE | 2020-02-23 07:30 | NUR ---
RECIEVED REPORT FROM GENO NELSON. PT RESTING IN LOW FOWLERS POSITION UPON ENTERING ROOM. RESPIRATIONS ARE EVEN AND UNLABORED WITH NO SIGNS OF DISTRESS. INTRODUCED SELF TO PT AND DISCUSSED POC. ALL SAFTEY PRECAUTIONS IN PLACE WITH CALL LIGHT IN REACH.WILL CONTINUE TO MONITOR.
--- NOTE | 2020-02-23 09:00 | NUR ---
ATTEMPTED IV ACCESS X 2 WITHOUT SUCCESS. PT INCONTINENT OF LARGE URINE; HYGIENE PROVIDED. STAGE II PRESSURE ULCER TO COCCYX; PHOTO TAKEN AND PLACED IN CHART. DUODERM APPLICED TO SMALL CIRCULAR AREA.
[2020-02-23 09:32] VITALS: BP 100/59
--- NOTE | 2020-02-23 09:32 | NUR ---
ASSESSMENT AND VITALS COMPLETED AT THIS TIME. BP 100/59, HR 90, O2 97% ON ROOM AIR. RESPIRATIONS ARE EVEN AND UNLABORED WITH NO SIGNS OF DISTRESS. LUNG SOUNDS ARE CLEAR. HEART RHYTHM IS NORMAL WITH TELE IN PLACE. BOWEL SOUNDS ARE ACTIVE IN ALL QUADRANTS, LAST REPORTED BM 02/18/20. SUGGEST PRUNE JUICE FOR NOW TO ASSIST WITH BM, PT ACCEPTED. PRUNE JUICE ADMINSITERED. RADIAL AND PEDAL PULSES ARE STRONG WITH NORMAL CAPILLARY REFILL. PT PRESENTS WITH STAGE 2 PRESSURE ULCER ON COCCYX, DUODERM APPILED BY GENO [place].IV UNABLE TO OBTAIN AT THIS TIME. PT DENIES OF ANY PAIN OR DISOCMFORTS AT THIS TIME. ALL SAFETY PRECAUTIONS ARE IN PLACE WITH CALL LIGHT IN REACH. WILL CONTINUE TO MONITOR.
--- NOTE | 2020-02-23 11:33 | NUR ---
Patient is screened for PT intervention. This patient/ family may be considering hospice so we will hold off for now - we will intervene upon meidical request
[2020-02-23 12:00] VITALS: BP 103/56
--- NOTE | 2020-02-23 12:08 | NUR ---
PT RESTING IN LOW FOWLERS POSITION WATCHING TV WITH AT BEDSIDE. RESPIRATIONS ARE EVEN AND UNLABORED WITH NO SIGNS OF DISTRESS. PT DENIES ANY PAIN OR DISCOMFORTS AT THIS TIME. ALL SAFETY PRECAUTIONS ARE IN PLACE WITH CALL LIGHT IN REACH. WILL CONTINUE TO MONITOR
--- NOTE | 2020-02-23 13:29 | NUR ---
IV #22G STARTED IN [facility] BY GEOFF MONTEMAYOR, PT TOLERATED WELL. PT INFORMED WRITTER THAT HE HAS YET TO HAVE BM, MOM ADMINISTERED TO ASSIST WITH BM. RESPIRATIONS ARE EVEN AND UNALBORED WITH NO SIGNS OF DISTRESS.ALL SAFETY PRECAUTIONS ARE IN PLACE WITH CALL LIGHT IN REACH. WILL CONTINUE TO MONITOR
--- NOTE | 2020-02-23 16:08 | NUR ---
PT RESTING IN SEMI FOWLERS POSITION WATCHING TV. RESPIRATIONS ARE EVEN AND UNLABORED WITH NO SIGNS OF DISTRESS. PT DENIES OF ANY PAIN OR DISCOMFORTS AT THIS TIME. ALL SAFETY PRECAUTIONS ARE IN PLACE WITH CALL LIGHT IN REACH. WILL CONTINUE TO MONITOR
[2020-02-23 16:13] VITALS: BP 101/48
[2020-02-23 16:16] LABS: HEMATOCRIT 26.4 % (39.0-50.0); HEMOGLOBIN 8.7 g/dl (14.0-18.0)
[2020-02-23 19:22] VITALS: BP 98/64
--- NOTE | 2020-02-23 19:45 | NUR ---
ASSESSMENT COMPLETED. IV SITE PATENT AND SL. UPDATED ON POC. GENERALIZED EDEMA NOTED. PT. INCONTINENT OF LARGE AMOUNT OF URINE AND CHI CARE GIVEN AND NEW DRAW SHEET, PAD, AND BRIEF APPLIED. DUODERM INTACT TO BUTTOCKS/COCCYX; UNABLE TO ASSESS WOUND. O2 INFUSING PER NC PER ORDER. PT. DECLINES WANTING TO BE REPOSITIONED ON SIDE AT THIS TIME. PT. IS ABLE TO ASSIT WITH TURNING.
--- NOTE | 2020-02-24 | NUR ---
PT. CLEANED OF AN INCOTNINENCE OF URINE; CHI CARE GIVEN AND NEW BRIEF APPLIED. RAFAEL YEPEZ. ENCOURAGED TO CALL FOR ANY NEEDS.
[2020-02-24 00:15] VITALS: BP 93/55
[2020-02-24 04:06] VITALS: BP 91/54
--- NOTE | 2020-02-24 04:51 | NUR ---
PT. PROVIDED WITH MOM TO ASSIST WITH BM; DENIES FURTHER NEEDS. CALL LIGHT IS IN REACH.
[2020-02-24 05:47] LABS: HEMATOCRIT 25.1 % (39.0-50.0); HEMOGLOBIN 7.9 g/dl (14.0-18.0); MEAN CELL VOLUME 92.6 fL CALC (80.0-100.0); MEAN CORPUSCULAR HGB 29.2 pG CALC (26.0-32.0); MEAN CORPUSCULAR HGB CONC 31.5 g/dL CAL (32.0-36.0); RED BLOOD COUNT 2.71 mill/uL (4.70-6.10); RED CELL DISTRI WIDTH 17.3 % (11.5-15.5)
[2020-02-24 06:16] LABS: ANION GAP 8 (6-22 (CALC)); BUN 11 mg/dL (8-23); BUN/CREATININE RATIO 19 (12-20 (CALC)); CARBON DIOXIDE 24 mmol/l (22-30); CHLORIDE 95 mmol/l (95-108); CREATININE 0.6 mg/dL (0.7-1.3); GFR > 60 ML/MIN (>=60 (CALC)); GFR FOR AFR.AMER. > 60 ML/MIN (>=60 (CALC)); MAGNESIUM 1.7 mg/dL (1.6-2.3); POTASSIUM 4.1 mmol/l (3.5-5.1); SODIUM 122 mmol/l (137-146)
--- NOTE | 2020-02-24 07:39 | NUR ---
RECEIEVED REPORT FROM GENO HARE. PT RESTING IN SEMI FOWLERS POSITION WATCHING TV UPON ENTERING ROOM. INTRODUCED SELF TO PT AND DISCUSSED POC.RESPIRATIONS ARE EVEN AND UNLABORED WITH NO SIGNS OF DISTRESS. PT DENIES ANY PAIN AT THIS TIME. ALL SAFETY PRECAUTIONS ARE IN PLACE WITHC ALL LIGHT IN REACH. WILL CONTINUE TO MONITOR
--- NOTE | 2020-02-24 08:16 | NUR ---
DR. ARNETT AT BEDSIDE FOR WOUND CONSULT; DUODERM REMOVED FROM COCCYX. NEW ORDER FOR SANTYL TO SMALL CIRCULAR OPEN AREA, APPLY MOISTENED 2X2 GAUZE AND PAPER TAPE. NO INCONTINENCE TO BRIEF AT THIS TIME; PT SITTING UP DRINKING COFFEE.
--- NOTE | 2020-02-24 08:45 | NUR ---
DR. HICKS AT BEDSIDE TO UPDATE .
[2020-02-24 09:32] VITALS: BP 90/53
--- NOTE | 2020-02-24 09:32 | NUR ---
ASSESSMENT AND VITALS COMPLETED AT THIS TIME. BP 90/53, HR 83, O2 97% ON 2L NC. RESPIRATIONS ARE EVEN AND UNLABORED WITH NO SIGNS OF DISTRESS. LUNG SOUNDS ARE CLEAR. HEART RHYTHM IS NORMAL WITH TELE IN PLACE. BOWEL SOUNDS ARE ACTIVE IN ALL QUADRANTS, LAST REPORTED BM 02/24/20. RADIAL AND PEDAL PULSES ARE STRONG WITH NORMAL CAPILLARY REFILL. SKIN IS WARM AND DRY, PT PRESENTS WITH STAGE 2 PRESSURE ULCER ON COCCYX. WOUND CARE CHANGED DRESSING EARLIER IN MORNING. ORDERS TO CLEANSE WITH SALINE, PAT DRY AND APPLIED SANTYL, COVER LIGHTLY WITH 2X2 LIGHTLY MOIST GAUZE, AND TAPED ON OUTER TO SECURE. DRESSING IS CDI AT THIS TIME. #22G IN LAC FLUSHED, SITE APPEARS HEALTHY AND PATENT. PT DENIES ANY PAIN OR DISCOMFORTS AT THIS TIME. ALL SAFETY REPCAUTIONS REMAIN IN PLACE WITH AT BEDSIDE AND CALL LIGHT IN REACH. WILL CONTINUE TO MONITOR
--- NOTE | 2020-02-24 11:27 | NUR ---
OT AT BEDSIDE WORKING WITH PT
--- NOTE | 2020-02-24 12:11 | NUR ---
PT SIITING UP IN CHAIR EATING LUNCH. RESPIRATIONS ARE EVEN AND UNLABORED WITH NO SIGNS OF DISTRESS. PT DENIES OF ANY PAIN OR DISCOMFORTS AT THIS TIME. ALL SAFETY PRECAUTIONS ARE IN PLACE WITH CALL LIGHT IN REACH. WILL CONTINUE TO MONITOR
[2020-02-24 12:21] VITALS: BP 86/59
--- NOTE | 2020-02-24 14:46 | NUR ---
PT note Patient is seen for evaluation He is a high fall risk. He movements are slow and lethargic but he gives good effort He is transferring with assist and ambulating with mod assist on a level surface in the room with FWW. His vitals were stable He would do well to go to short term rehab for continued intervention to maximize function and decrease his fall risk as well as reduce the burden of care through a monitored gait training and strengthening program
--- NOTE | 2020-02-24 15:45 | NUR ---
PT RESTING IN SEMI FOWLERS POSITION WATCHING TV. RESPIRATIONS ARE EVEN AND UNLABORED WITH NO SIGNS OF DISTRESS. PT DENIES ANY PAIN OR DISCOMFORTS AT THIS TIME. ALL SAFETY PRECAUTIONS ARE IN PLACE WITH CALL LIGHT IN REACH.
[2020-02-24 15:51] VITALS: BP 95/60
[2020-02-24 19:00] VITALS: BP 92/52
--- NOTE | 2020-02-24 20:10 | NUR ---
PT LAYING IN BED RESTING, NO APPARENT DISTRESS, RESPIRATIONS REG & UNLABORED. PHYSICAL ASSESMENT COMPLETE. PT CURRENTLY DENIES PAIN OR DISCOMFORT. SCHEDULED MEDS ADMINISTERED, SEE E-MAR. PT ASKS IF MEDS CAN BE GIVEN EARLIER, "LIKE AT 5 0R 6". INFORMED PT WILL CONSULT PHARMACY TO ASSESS IF THISS WAS POSSIBLE. PT DENIES FURTHER NEEDS AT THIS TIME. PLAN OF CARE REVIEWED, PT DENIES QUESTIONS, VERBALIZES UNDERSTANDING. ITEMS WITHIN REACH, BED LOCKED IN LOW POSITION W/ BEDRAILS UP X2. CALL ALMARAZ WITHIN REACH, AGREES TO CALL PRN.
--- NOTE | 2020-02-24 20:15 | NUR ---
PT REFUSES TO DRINK UREA, UREA MIXED IN APPLE JUICE PER PTS REQUEST. STATES "I WILL DRINK IT LATER". PT ENCOURAGED TO DRINK KNOW WHILE IT IS COLD AND WELL MIXED. PT DECLINES.
[2020-02-25] VITALS (7 sets, daily range): BP systolic 90–103; BP diastolic 53–61
[2020-02-25 05:53] LABS: HEMATOCRIT 24.7 % (39.0-50.0); HEMOGLOBIN 7.8 g/dl (14.0-18.0); MEAN CELL VOLUME 94.3 fL CALC (80.0-100.0); MEAN CORPUSCULAR HGB 29.8 pG CALC (26.0-32.0); MEAN CORPUSCULAR HGB CONC 31.6 g/dL CAL (32.0-36.0); RED BLOOD COUNT 2.62 mill/uL (4.70-6.10); RED CELL DISTRI WIDTH 17.2 % (11.5-15.5)
[2020-02-25 06:26] LABS: ANION GAP 6 (6-22 (CALC)); BUN 9 mg/dL (8-23); BUN/CREATININE RATIO 16 (12-20 (CALC)); CARBON DIOXIDE 25 mmol/l (22-30); CHLORIDE 96 mmol/l (95-108); CREATININE 0.6 mg/dL (0.7-1.3); GFR > 60 ML/MIN (>=60 (CALC)); GFR FOR AFR.AMER. > 60 ML/MIN (>=60 (CALC)); POTASSIUM 3.8 mmol/l (3.5-5.1); SODIUM 123 mmol/l (137-146)
--- NOTE | 2020-02-25 06:29 | NUR ---
PHYSICAL ASSESMENT UNCHANGED FROM BEGINING OF SHIFT BASELINE ASSESMENT. AM HEMODYNAMICS WNL/ STABLE. PT AFEBRILE. PT DENIES NEEDS AT THIS TIME. ITEMS REMAIN WITHIN REACH, BED REMAINS LOCKED IN LOW POSITION W/ BEDRAILS UP X2. CALL ALMAR[place] REMAINS WITHIN REACH, AGREES TO CALL PRN.
--- NOTE | 2020-02-25 07:30 | NUR ---
RECIEVED REPORT FROM. GENO NELSON. PT SLEEPING IN SEMI FOWLERS POSITION UPON ENTERING ROOM. RESPIRATIONS ARE EVEN AND UNLABORED WITH NO SIGNS OF DISRESS. NO SIGNS OF ANY PAIN OR DISCOMFORTS. ALL SAFTEY PRECAUTIONS ARE IN PLACE WITH CALL LIGHT IN REACH.
--- NOTE | 2020-02-25 09:13 | NUR ---
ASSESSMENT AND VITALS COMPLETED AT THIS TIME. BP 96/56, HR 79, O2 93% ON ROOM AIR. RESPIRATIONS ARE EVEN AND UNLABORED WITH NO SIGNS OF DISTRESS. LUNG SOUNDS ARE CLEAR. HEART RHYTHM IS NORMAL WITH TELE IN PLACE. BOWEL SOUNDS RE ACTIVE IN ALL QUADRANTS WITH NO TENDERNESS. LAST REPORTED BM 02/25/20. RADIAL AND PEDAL PULSES ARE STRONG WITH NORMAL CAPILLARY REFILL. SKINS IS WARM AND DRY. PT PRESENTS WITH STAGE 2 PRESSURE ULCER ON COCCYX, WOUND CLEANSED WITH SALINE, DRY PAT AND SANTYL APPLIED. WOUND COVERED LIGHTLY WITH 2X2 GAUZE. AND TAPED TO SECURE. #22 IN LAC FLUSHED, SITE APPEARS HEALTHY AND PATENT. PT DENIES ANY PAIN OR DISCOMFORTS AT THIS TIME. ALL SAFETY PRECAUTIONS ARE IN PLACE WITH CALL LIGTH IN REACH. WILL CONTINUE TO MONITOR.
--- NOTE | 2020-02-25 12:22 | NUR ---
PT RESITNG IN SEMI FOWLERS POTIION WATCHING TV RESPIRATIONS ARE EVEN AND UNLABORED WITH NO SIGNS OF DISTRESS. PT DENIES ANY PAIN OR DISCOMFORTS AT THIS TIME. ALL SAFETY PRECAUTIONS ARE IN PLACE WITH CALL LIGHT IN REACH. WILL CONTINUE TO MONITOR
--- NOTE | 2020-02-25 12:58 | NUR ---
DR COOLEY AT BEDSIDE DISCUSSING POC AT THIS TIME
--- NOTE | 2020-02-25 13:35 | NUR ---
PT note pt was seen for therex and gait training. Pt first performed ankle pumps 2x10, quad setting 2x10, hip abd with manual resistance 2x10. then transitioned to sitting on EOB with min assist where he performed LAQ 2x10, then sit to stand with VC for hand placement where pt performed standing heel raises 2x10, mini squats 2x10, marching 2x10. Gait training with RW 30ft x3. Vitals were stable throughout treatment with BP at 91/58 after gait training.(WNL for this pt) . pt was left in supine position with call light near ampac =14
--- NOTE | 2020-02-25 16:00 | NUR ---
PT RESTING IN SEMI FOWLERS POSITION WATCHING TV. RESPIRATIONS ARE EVEN AND UNLABORED WITH NO SIGNS OF DISTRESS. PT DENIES ANY PAIN OR DISCOMFORTS AT THIS TIME. ALL SAFTEY PRECAUTIONS REMAIN IN PLACE WITH CALL LIGTH IN REACH.
[2020-02-26 04:24] VITALS: BP 96/58
[2020-02-26 05:16] LABS: HEMATOCRIT 25.9 % (39.0-50.0); HEMOGLOBIN 8.3 g/dl (14.0-18.0); MEAN CELL VOLUME 93.5 fL CALC (80.0-100.0); RED BLOOD COUNT 2.77 mill/uL (4.70-6.10); RED CELL DISTRI WIDTH 17.2 % (11.5-15.5)
[2020-02-26 05:46] LABS: ANION GAP 8 (6-22 (CALC)); BUN 11 mg/dL (8-23); BUN/CREATININE RATIO 18 (12-20 (CALC)); CARBON DIOXIDE 23 mmol/l (22-30); CHLORIDE 97 mmol/l (95-108); CREATININE 0.6 mg/dL (0.7-1.3); GFR > 60 ML/MIN (>=60 (CALC)); GFR FOR AFR.AMER. > 60 ML/MIN (>=60 (CALC)); POTASSIUM 3.8 mmol/l (3.5-5.1); SODIUM 124 mmol/l (137-146)
[2020-02-26 08:01] VITALS: BP 100/63
[2020-02-26 10:30] VITALS: BP 96/61
--- NOTE | 2020-02-26 11:18 | NUR ---
PT STAGE II WOUND ON COCCYX WAS IGGIGATED WIH NORAL SALINE SOLUTION. SANYTYL AND DRESSING WAS APPLIED.
--- NOTE | 2020-02-26 12:23 | NUR ---
PT LAYING IN BED RESTING, NO APPARENT DISTRESS, RESPIRATIONS REG & UNLABORED. PT CURRENTLY IN DISCOMFORTFROM STAGE II PRESSURE WOULD ON HIS COCCYX. PT DENIES ANY OTHER NEEDS AT THIS TIME. ITEMS WITHIN REACH BED LOCKED IN LOW POSITION W/ BEDRAILS UP X2. CALL ALMARAZ WITHIN REACH, AGREES TO CALL PRN.
--- NOTE | 2020-02-26 13:53 | NUR ---
SPOKE WITH SUBLIME FROM [facility] REGARDING PATIENTS ACTIVITY LEVEL AND OXYGEN DEMAND. PT REMOVED FROM OXYGEN AND CURRENLTY 93% ON ROOM AIR. REMAINS AT BEDSIDE.
--- NOTE | 2020-02-26 14:33 | NUR ---
Pt. found resting comfortably in bed, he declined physical therapy treatment for today reported he wanted to rest but would participate in therapy tomorrow.
[2020-02-26] MEDS ORDERED: MAPAP325 MG PO (14:36)
[2020-02-26] MEDS ORDERED: AUGMENTIN500TAB PO (14:36)
--- NOTE | 2020-02-26 14:43 | NUR ---
PT CONTINUES BEFORE, ALERT AND ORIENTED. IV SIGHT APPEARS HEALTHY AND FLUSHES. TELE ON. 02 STATS NORMAL ON ROOM AIR. NO EVIDENCE OF DISTRESS.
[2020-02-26 15:00] VITALS: BP 93/53
--- NOTE | 2020-02-26 16:02 | NUR ---
IV DISCONTINUED AND REMOVED FROM THE RAC. CATH. INTACT, NO EDEMA OR REDDNESS, NO DISCOMFORT. DISCHARGE INSTRUCTIONS PROVIDED. PT AWAITS MEDICAL TRANSPORTATION TO [facility].
--- NOTE | 2020-02-26 18:26 | NUR ---
TRANSPORT AT BEDSIDE. NEW DRESSING APPLIED TO COCCYX. ALSO AT BEDSIDE.
--- NOTE | 2020-02-26 18:35 | NUR ---
Discharge instructions given. Patient verbalizes understanding of same. Discharged in stable condition via [facility] to [facility] in [place] with staff. All belongings sent with pt. Pt pleasant and smiling upon discharge; remained at bedside to say goodbye.
== END 2020-02-26 18:35 | DRG 643 ==
LOC: ED 10:10 → ED-I 12:40 → ED 12:50 → MS2 12:51 → ED-I 12:51 → MS2 13:38
PROVIDERS: Emergency Medicine; Nurse Practitioner; ADMIT Internal Medicine; ATTEND Internal Medicine
DX: E22.2 Syndrome of inappropriate secretion of antidiuretic hormone (principal); J18.9 Pneumonia, unspecified organism; C15.9 Malignant neoplasm of esophagus, unspecified; D62 Acute posthemorrhagic anemia; E46 Unspecified protein-calorie malnutrition; I10 Essential (primary) hypertension; L89.152 Pressure ulcer of sacral region, stage 2; R53.81 Other malaise; E83.51 Hypocalcemia; E78.5 Hyperlipidemia, unspecified; E11.9 Type 2 diabetes mellitus without complications; Z92.21 Personal history of antineoplastic chemotherapy; Z92.3 Personal history of irradiation; Z96.89 Presence of other specified functional implants; Z74.01 Bed confinement status; Z20.828 Contact with and (suspected) exposure to other viral communicable diseases
CPT/HCPCS: G0378; J1650

== ENCOUNTER 2020-05-08 14:45 | Emergency (ER) | payer MEDICARE ==
[~2020-05-08] VITALS: Ht 177.8 cm; Wt 77.0 kg
[~2020-05-08 14:45] MED LIST changes: +AUGMENTIN500TAB PO; +MAPAP325 MG PO
[2020-05-08 15:36] LABS: HEMATOCRIT 31.1 % (39.0-50.0); HEMOGLOBIN 9.7 g/dl (14.0-18.0); IMMATURE GRANULOCYTES 0.9 % (0.0-5.0); MEAN CELL VOLUME 89.1 fL CALC (80.0-100.0); MEAN CORPUSCULAR HGB 27.8 pG CALC (26.0-32.0); MEAN CORPUSCULAR HGB CONC 31.2 g/dL CAL (32.0-36.0); NEUT# 4.55 thou/uL (1.82-7.42); RED BLOOD COUNT 3.49 mill/uL (4.70-6.10); RED CELL DISTRI WIDTH 16.8 % (11.5-15.5)
[2020-05-08 16:00] LABS: ACT PARTIAL THROMBO TIME 23.4 SECONDS (20.0-32.5); INTERNATIONAL NORMALIZED RATIO 1.1 RATIO (0.7-1.3); PROTHROMBIN TIME 10.7 SECONDS (9.0-12.5)
[2020-05-08 16:09] LABS: ALBUMIN 3.3 g/dL (3.2-5.0); ALKALINE PHOSPHATASE 107 u/l (38-126); ANION GAP 15 (6-22 (CALC)); BILIRUBIN, TOTAL 0.3 mg/dL (0.0-1.4); BUN 12 mg/dL (8-23); BUN/CREATININE RATIO 20 (12-20 (CALC)); CARBON DIOXIDE 20 mmol/l (22-30); CHLORIDE 90 mmol/l (95-108); CREATININE 0.6 mg/dL (0.7-1.3); GFR > 60 ML/MIN (>=60 (CALC)); GFR FOR AFR.AMER. > 60 ML/MIN (>=60 (CALC)); LIPASE 84 u/l (23-300); POTASSIUM 4.1 mmol/l (3.5-5.1); SGOT/AST 24 u/l (19-48); SODIUM 121 mmol/l (137-146); TOTAL PROTEIN 6.4 g/dL (6.3-8.2)
[2020-05-08] MEDS ORDERED: TRAMADOL HCL50 MG PO (18:20)
[2020-05-08 19:21] VITALS: BP 106/80
== END 2020-05-08 19:40 | disposition short-term general hospital (02) ==
LOC: ED 14:45
PROVIDERS: Student in an Organized Health Care Education/Training Program
PROC: 06HY33Z Insertion of Infusion Device into Lower Vein, Percutaneous Approach (ICD-10-PCS; principal; 2020-05-08)
DX: K92.2 Gastrointestinal hemorrhage, unspecified (principal); J18.9 Pneumonia, unspecified organism; E87.1 Hypo-osmolality and hyponatremia; C15.9 Malignant neoplasm of esophagus, unspecified; D35.2 Benign neoplasm of pituitary gland; Z20.828 Contact with and (suspected) exposure to other viral communicable diseases
CPT/HCPCS: J2060; S0164

== ENCOUNTER 2021-09-27 09:01 | Emergency (ER) | payer MEDICARE ==
[~2021-09-27] VITALS: Ht 177.8 cm; Wt 100.0 kg
[~2021-09-27 09:01] MED LIST changes: +TRAMADOL HCL50 MG PO
[2021-09-27 10:01] LABS: MEAN CELL VOLUME 95.8 fL CALC (80.0-100.0); MEAN CORPUSCULAR HGB 28.5 pG CALC (26.0-32.0); MEAN CORPUSCULAR HGB CONC 29.7 g/dL CAL (32.0-36.0); NEUT# 2.91 thou/uL (1.82-7.42); RED BLOOD COUNT 3.3 mill/uL (4.70-6.10); RED CELL DISTRI WIDTH 15.4 % (11.5-15.5)
[2021-09-27 10:19] LABS: ALKALINE PHOSPHATASE 70 u/l (38-126); BUN 14 mg/dL (8-23); BUN/CREATININE RATIO 10 (12-20 (CALC)); CHLORIDE 100 mmol/l (95-108); CREATININE 1.3 mg/dL (0.7-1.3); GFR 54 ML/MIN (>=60 (CALC)); GFR FOR AFR.AMER. > 60 ML/MIN (>=60 (CALC)); POTASSIUM 4.3 mmol/l (3.5-5.1); TOTAL PROTEIN 5.7 g/dL (6.3-8.2)
[2021-09-27 10:28] LABS: HEMATOCRIT 31.6 % (39.0-50.0); HEMOGLOBIN 9.4 g/dl (14.0-18.0); IMMATURE GRANULOCYTES 8.4 % (0.0-5.0)
[2021-09-27 10:30] LABS: ALBUMIN 2.7 g/dL (3.2-5.0); ANION GAP 29 (6-22 (CALC)); BILIRUBIN, TOTAL 0.6 mg/dL (0.0-1.4); CARBON DIOXIDE 21 mmol/l (22-30); SGOT/AST 840 u/l (19-48); SODIUM 146 mmol/l (137-146)
[2021-09-27 10:40] VITALS: BP 63/36
--- NOTE | 2021-09-27 10:59 | NUR ---
RT ASSIST DURING MULTIPLE CODE BLUES. ARTIFICAL AIRWAY PLACED BY ANESTHESIA. PT AT 1043.
== END 2021-09-27 13:24 | disposition expired ==
LOC: ED 09:01
PROVIDERS: Emergency Medicine
PROC: 5A12012 Performance of Cardiac Output, Single, Manual (ICD-10-PCS; principal; 2021-09-27)
PROC: 0BH17EZ Insertion of Endotracheal Airway into Trachea, Via Natural or Artificial Opening (ICD-10-PCS; 2021-09-27)
PROC: 30233N1 Transfusion of Nonautologous Red Blood Cells into Peripheral Vein, Percutaneous Approach (ICD-10-PCS; 2021-09-27)
DX: I21.3 ST elevation (STEMI) myocardial infarction of unspecified site (principal); R58 Hemorrhage, not elsewhere classified; D64.9 Anemia, unspecified; E88.09 Other disorders of plasma-protein metabolism, not elsewhere classified; R79.89 Other specified abnormal findings of blood chemistry; E83.51 Hypocalcemia; E87.2 Acidosis; I11.0 Hypertensive heart disease with heart failure; I50.9 Heart failure, unspecified; E78.5 Hyperlipidemia, unspecified; E11.65 Type 2 diabetes mellitus with hyperglycemia; Z98.890 Other specified postprocedural states; Z85.01 Personal history of malignant neoplasm of esophagus
CPT/HCPCS: P9016